=== PATIENT | female | born 1995 | race Caucasian/White ===

== ENCOUNTER 2017-11-22 18:30 | Outpatient (CLI) | payer MEDICAID, SELFPAY ==
[2017-11-22 18:52] VITALS: BMI 43.7
--- NOTE | 2017-11-22 19:12 | OB.TRI.NOTE ---
History of Present Illness Date of Service: 11/22/17 Was patient seen by the physician?: Yes Reason For Visit: 41 weeks Date of Service: 11/22/17 Final ROSALINDA: 11/15/17 Gestational age: 41 Weeks and 0 Days History of Present Illness: 22-year-old 1 para 0 female presents at 41 weeks today for nonstress test and MAUREEN. She was originally scheduled for induction today but due to acuity of the unit we have rescheduled her for tomorrow. she denies vaginal bleeding or leaking of fluid. She has had no regular contractions. She has had good movement. Home Medications Medication Instructions Recorded Vits [Prenatabs FA] 1 tablet PO DAILY 11/22/17 Allergies No Known Allergies Allergy (Verified 11/22/17 18:52) Physical Exam General: Alert, Cooperative, No apparent distress Abdomen: Soft, Non Tender, Non-Distended, Gravid, Appropriate for Gestational Age NST - FHR Rate Baby A Baseline: 150 Variability:: Moderate Accelerations:: 15 x 15 Decelerations:: None NST Reactive:: Yes FHR Category:: Category I Uterine Activity:: Quiet Impression/Plan 22-year-old 1 para 0 at 41 weeks gestation. Brief abdominal ultrasound done today. Confirms active vertex fetus. Normal amniotic fluid volume. Reactive nonstress test. Return tomorrow for Cytotec induction of labor or as needed.
== END 2017-11-22 20:32 | disposition home or self-care (01) ==
LOC: WPOUT 18:50 → WP 18:50
PROVIDERS: Visit Provider Obstetrics & Gynecology
DX: Z34.83 Encounter for supervision of other normal pregnancy, third trimester (principal)
CPT/HCPCS: 59025; 59050; 76815; 99218; G0378

== ENCOUNTER 2017-11-23 16:50 | Inpatient (IN) | payer MEDICAID, SELFPAY ==
[2017-11-23 17:28] VITALS: BMI 43.5
[2017-11-23] MEDS: Lactated Ringers 1,000 ML 50 ML IV (17:54)
[2017-11-23] MEDS: miSOPROStol 25 MCG TABLET VAGINAL (18:03)
[2017-11-23 18:20] LABS: Hematocrit 40.2 % (37-47); Mean Corp Hgb Conc 32.3 g/gl (32-36); Mean Corpuscular Hgb 27.3 pg (27.0-32.0); Mean Corpuscular Volume 84.5 fL (81-99); Mean Platelet Vol. 10.7 fl (6.2-12.0); Platelet Count 251 K/mm3 (150-450); RBC Distribution Width CV 14.7 % (11.6-14.6); RBC Distribution Width SD 45.6 fl (35.1-43.9); Red Blood Count 4.76 M/mm3 (4.2-5.4); White Blood Count 10.7 K/mm3 (4.4-11.0)
[2017-11-23 18:41] LABS: Scan Indicated on CBC? Y/N NO
--- NOTE | 2017-11-23 20:30 | PCM.HP.OB ---
History Date of Admission: 11/23/17 Final ROSALINDA: 11/15/17 Final ROSALINDA Source: US <20 weeks Gestational age: 41 Weeks and 1 Days History of this : 22yo @ 40.1 wks here for IOL due to Post Term . pt denies concerns today. Minimal contraction discomfort, no bleeding or leaking fluid. EDC is 11/15/17 Allergies No Known Allergies Allergy (Verified 11/22/17 18:52) Current Medications Acetaminophen (Tylenol) 325 - 650 mg PO Q4H PRN PRN PRN Reason: PAIN OR FEVER >100.4F Al Hydroxide/Mg Hydroxide (Mylanta Ii) 15 - 30 ml PO Q4H PRN PRN PRN Reason: INDIGESTION Citric Acid/Sodium Citrate (Bicitra) 30 ml PO UD PRN Lactated Ringer's () 1,000 mls @ 50 mls/hr IV .Q20H [facility] Last Admin: 11/23/17 17:54 Dose: 50 mls/hr Misoprostol (Cytotec) 25 mcg VAGINAL Q4H MARCUS Stop: 11/24/17 13:26 Last Admin: 11/23/17 18:03 Dose: 25 mcg Nalbuphine HCl (Nubain) 5 - 10 mg IV Q3H PRN PRN PRN Reason: PAIN (4-10/10) Ondansetron HCl (Zofran) 4 mg IV Q8H PRN PRN PRN Reason: NAUSEA Promethazine HCl (Phenergan (Ll)) 6.25 - 12.5 mg IV Q4H PRN PRN; Protocol PRN Reason: IF NAUSEA PERSISTS Sodium Chloride () 5 - 15 ml IV UD [facility] Smoking Status: Never smoker Alcohol: None Drug Use: none Number of Fetus(es): 1 Physical Exam General: Alert, Oriented x3 Abdomen: Soft, Non Tender, Gravid Estimated gestational size: Appropriate for gestational size Presentation: Cephalic Cervix Dilation (cm): 1 Station: -3 Effacement (%): 40 Assessment/Plan 22yo @ 41.1 wks, IOL for post term 1) Admit to L&D 2) Cytotec given 3) Mosley bulb to be placed transcervically 4) Will start pitocin 5) Montior fhr/toco 6) PNL reviewed A+, HIV neg, HEP B neg, Rub IMm, Syphilis neg, GBS negative
--- NOTE | 2017-11-23 20:35 | HP.PCM_ITS ---
History Date of Admission: 11/23/17 Final ROSALINDA: 11/15/17 Final ROSALINDA Source: US <20 weeks Gestational age: 41 Weeks and 1 Days History of this : 22yo @ 40.1 wks here for IOL due to Post Term . pt denies concerns today. Minimal contraction discomfort, no bleeding or leaking fluid. EDC is 11/15/17 Allergies No Known Allergies Allergy (Verified 11/22/17 18:52) Current Medications Acetaminophen (Tylenol) 325 - 650 mg PO Q4H PRN PRN PRN Reason: PAIN OR FEVER >100.4F Al Hydroxide/Mg Hydroxide (Mylanta Ii) 15 - 30 ml PO Q4H PRN PRN PRN Reason: INDIGESTION Citric Acid/Sodium Citrate (Bicitra) 30 ml PO UD PRN Lactated Ringer's () 1,000 mls @ 50 mls/hr IV .Q20H [facility] Last Admin: 11/23/17 17:54 Dose: 50 mls/hr Misoprostol (Cytotec) 25 mcg VAGINAL Q4H MARCUS Stop: 11/24/17 13:26 Last Admin: 11/23/17 18:03 Dose: 25 mcg Nalbuphine HCl (Nubain) 5 - 10 mg IV Q3H PRN PRN PRN Reason: PAIN (4-10/10) Ondansetron HCl (Zofran) 4 mg IV Q8H PRN PRN PRN Reason: NAUSEA Promethazine HCl (Phenergan (Ll)) 6.25 - 12.5 mg IV Q4H PRN PRN; Protocol PRN Reason: IF NAUSEA PERSISTS Sodium Chloride () 5 - 15 ml IV UD [facility] Smoking Status: Never smoker Alcohol: None Drug Use: none Number of Fetus(es): 1 Physical Exam General: Alert, Oriented x3 Abdomen: Soft, Non Tender, Gravid Estimated gestational size: Appropriate for gestational size Presentation: Cephalic Cervix Dilation (cm): 1 Station: -3 Effacement (%): 40 Assessment/Plan 22yo @ 41.1 wks, IOL for post term 1) Admit to L&D 2) Cytotec given 3) Mosley bulb to be placed transcervically 4) Will start pitocin 5) Montior fhr/toco 6) PNL reviewed A+, HIV neg, HEP B neg, Rub IMm, Syphilis neg, GBS negative
[2017-11-23] MEDS: 0.9% Normal Saline 100 ML IV.SOLN. INTRA-UTER (20:45)
[2017-11-23] MEDS: Oxytocin 30 units/NS 500 ml 30 UNITS/500 ML IV.SOLN IV (22:47)
[2017-11-23 23:00] LABS: Hematocrit 40.3 % (37-47); Hemoglobin 13.3 g/dl (12.0-15.0); Mean Corpuscular Hgb 27.8 pg (27.0-32.0); Mean Corpuscular Volume 84.3 fL (81-99); Mean Platelet Vol. 10.6 fl (6.2-12.0); Platelet Count 245 K/mm3 (150-450); RBC Distribution Width CV 14.6 % (11.6-14.6); RBC Distribution Width SD 45.4 fl (35.1-43.9); Red Blood Count 4.78 M/mm3 (4.2-5.4); White Blood Count 10.7 K/mm3 (4.4-11.0)
[2017-11-23 23:01] LABS: Scan Indicated on CBC? Y/N NO
[2017-11-23 23:09] LABS: Protein, Urine (Random) 19.6 mg/dL (<11.9); Protein:Creat Ratio 172 mg/g CRE (0-200)
[2017-11-23 23:13] LABS: AST(SGOT) 20 U/L (15-37); Alanine Aminotransfer ALT/SGPT 20 U/L (13-56); Creatinine, Serum 0.51 mg/dL (0.55-1.02); EST Glomerular Filtration Rate 162 mL/min (>60); Est Glom Filt Rate - Afr Amer 196 mL/min (>60); Estimated Creatinine Clearance 139.17 ml/min
[2017-11-24] VITALS (16 sets, daily range): BP systolic 109–142; BP diastolic 49–71; PULSE 94–113; RESP 14–20; TEMP 37.3–38.2; O2SAT 95–98
[2017-11-24] MEDS: Nalbuphine 10 MG/ML Ampul IV ×2 (00:17→03:54)
[2017-11-24 02:58] LABS: Prothrombin Time (Protime)PT. 13.6 SECONDS (11.7-14.9)
[2017-11-24 02:59] LABS: Partial Thromboplast Time 30.4 Seconds (24.1-36.2)
[2017-11-24] MEDS: Lactated Ringers 1,000 ML 50 ML IV ×3 (03:52→12:13)
--- NOTE | 2017-11-24 09:39 | PCM.PN.BLA ---
Progress Note S: Patient comfortable with epidural O: cvx - 5/70/-2 fhts 135 with mod variability, accels tocos Q2-4 min A&P: cont pitocin induction
[2017-11-24] MEDS: Ondansetron 4 MG/2 ML Vial IV (16:30)
[2017-11-24] MEDS: Sodium Citrate/Citric Acid 30 ML UDC PO (16:31)
--- NOTE | 2017-11-24 16:48 | PCM.OB.CSR ---
Delivery Final ROSALINDA: 11/15/17 Gestational age: 41 Weeks and 2 Days Indications: Patient was counseled on MOD extensively before induction of labor was started at 41&1. Patient has small pelvis, unfavorable cervix & head not engaged in pelvis. She elected to proceed with induction. She was on pitocin and ruptured for 12 hours (patient was thought to be ruptured prior to AROM) with no significant cervical change or descent. Patient then requested section & declined further induction of labor. Decision made to proceed with section as medically reasonable at this time Indications for : Failed Induction Description of Procedure: Patient taken to OR where epidural anesthesia was dosed. She was prepped and draped in normal sterile fashion in a dorsal lithotomy position with a leftward tilt. After ensuring adequacy of anesthesia the Pfannensteil skin incision was made and carried through to the underlying fascia with a bovie. The fascia was incised in the midline and carried laterally with the Vizcarra scissors. The rectus muscles were in the midline and the peritoneum was entered bluntly. The bladder flap was dissected down carefully with the Metzenbaum scissors and blunt dissection. The uterus was incised in a transverse fashion and then incision extended with cephalocaudad traction. The fetus was vertex and the head was brought to the incision in the flexed position. With good fundal pressure the head easily delivered. Gentle traction placed on head to allow delivery of anterior & posterior shoulders. No excess traction placed on head. The body delivered easily. The 3VC cord was clamped and cut after 1 minute delay and the handed off to the waiting RN. The placenta was delivered w/ gentle traction and fundal massage and the uterus was exteriorized and cleared of all clots and debris. The uterine incision was closed with 1 vicryl suture in a running locked fashion. The bovie was used to further obtain further hemostasis of the uterine incision. A second imbricating layer of monocryl was placed. The uterus was returned to the peritoneal cavity. The pelvis was irrigated & then cleared of all clots and debris. The uterine incision was reexamined and found to be hemostatic. Some angi was placed over the uterine incision due to the denuded areas. The parietal peritoneum was reapproximated with running 1 vicryl suture. The fascia was closed with looped PDS suture in a running standard fashion. The subcutaneous tissue was examined & any bleeding bovie cauterized. The subcutaneous tissue was reapproximated with 3-0 vicryl suture. The skin was closed in a subcuticular fashion by the DIRECTOR OF PHYSICAL EDUCATION with me present in the labor and delivery suite. I performed the remainder of the procedure w/ assistance. Amniotic Membrane Rupture Type: Spontaneous Amniotic Fluid Description: Clear Placenta Disposition: [facility] Drain: Mosley to straight drain Cord Vessel Description: 3 Vessels Infant Gender: Female (1 minute): 8 (5 minute): 9 Delayed cord clamping: Yes Pre-op Antibiotic Given: Ancef 2 grams IV x1 Complications: None
[2017-11-24] MEDS: Cefazolin 2 GM in 0.9% Normal Saline 100 ML IV (16:50)
[2017-11-24] MEDS: Oxytocin 30 units/NS 500 ml 30 UNITS/500 ML IV.SOLN 167 UNITS IV (17:11)
[2017-11-24] MEDS: Ketorolac 30 MG/ML Syringe IV (17:20)
[2017-11-24] MEDS: Lactated Ringers 1,000 ML 100 ML IV ×2 (18:15→23:14)
[2017-11-24] MEDS: HYDROmorphone HCL 0.5 MG/0.5 ML SYRINGE IV (18:53)
[2017-11-25] VITALS (15 sets, daily range): BP systolic 108–132; BP diastolic 46–65; PULSE 97–115; RESP 15–20; TEMP 36.8–37.3; O2SAT 94–99
[2017-11-25] MEDS: Ketorolac 30 MG/ML Syringe IV ×4 (03:43→23:05)
[2017-11-25 05:42] LABS: Hematocrit 30.9 % (37-47); Hemoglobin 10.1 g/dl (12.0-15.0); Mean Corp Hgb Conc 32.7 g/gl (32-36); Mean Corpuscular Volume 85.6 fL (81-99); Mean Platelet Vol. 10.6 fl (6.2-12.0); Platelet Count 194 K/mm3 (150-450); RBC Distribution Width CV 14.9 % (11.6-14.6); Red Blood Count 3.61 M/mm3 (4.2-5.4); Scan Indicated on CBC? Y/N NO; White Blood Count 12.6 K/mm3 (4.4-11.0)
[2017-11-25] MEDS: Acetaminophen 500 MG Tablet 1000 MG PO (08:14)
--- NOTE | 2017-11-25 09:42 | PCM.PN.OB ---
Subjective: Pain controlled - Physical Exam General: Alert, Oriented x3 Abdomen: Soft, Non Tender, Non-Distended - ff mid & below umb; incision - bandage c/d/i Extremities: No Calf Tenderness Psych/Mental Status: Normal Affect Vital Signs Temp Pulse Resp BP Pulse Ox 99.0 F 97 17 109/50 L 95 11/25/17 04:00 11/25/17 06:15 11/25/17 06:15 11/25/17 04:00 11/25/17 06:15 Oxygen Delivery Method Room Air Weight: 241 lb 13.553 oz Body Mass Index (BMI) 43.5 Intake and Output for Last 24 Hours 11/23/17 11/24/17 11/26/17 23:59 23:59 00:59 Intake Total 3939 / 3939 1000 / 1000 Output Total 400 / 400 250 / 250 Balance 3539 / 3539 750 / 750 Laboratory Tests Past 24 Hrs 11/25/17 05:10 WBC 12.6 H RBC 3.61 L Hgb 10.1 L Hct 30.9 L MCV 85.6 MCH 28.0 MCHC 32.7 RDW 14.9 H RDW Differential 45.0 H Plt Count 194 MPV 10.6 Assessment/Plan POD#1 Heme - HDS, CBC reviewed IF - AF, no signs infection - d/c aziza later today GI - ADAT
[2017-11-25] MEDS: Enoxaparin 40 MG/0.4 ML Syringe SC (10:18)
[2017-11-25] MEDS: Lactated Ringers 1,000 ML 100 ML IV (10:22)
[2017-11-25] MEDS: 0.9% Saline Lock 10 ML Syringe IV ×2 (16:35→23:06)
--- NOTE | 2017-11-25 17:15 | NURSING ---
Mosley cath removed after saline drained from balloon.
--- NOTE | 2017-11-25 19:44 | NURSING ---
Pt. has been agreeable all shift, smiling frequently, and interacting with staff appropriately. Pt. excited to get out of bed and move around today. Doing well with her - very engaged with feeding . When discussing care of and (i.e. pacifier use,) pt. very much wanting to work with with vs. giving pacifier.
[2017-11-25] MEDS: oxyCODONE 5 MG Tablet PO (23:05)
[2017-11-26] VITALS: PULSE 110; RESP 17; TEMP 37.2; O2SAT 95
--- NOTE | 2017-11-26 00:52 | NURSING ---
11/25/17- Received report for continuation of care. Previous RN (Georgina) stated due to patient's high score on depression screening patient should be on some type of suicide precautions. Patient denies any suicidal ideations to this nurse. Patient is alert, and oriented x3. Mood appears pleasant. Patient appropriate with care. Patient is receptive to questions, makes direct eye contact and is frequently smiling. Patient was referred to case management but unaware if order was given to place patient on suicide precautions. There is no note written from previous RN caring for patient. Will continue to monitor patient closely.
[2017-11-26 02:00] VITALS: BP 124/68; PULSE 105; RESP 17; TEMP 37; O2SAT 97
--- NOTE | 2017-11-26 02:04 | NURSING ---
Dr Quiroz updated for clarification. RN and Dr Quiroz both agree patient not suicidal at this time. Clarified Moni to see patient tommorow, she states crisis was notified per protocol and will see her tommorow.
[2017-11-26] MEDS: 0.9% Saline Lock 10 ML Syringe IV ×2 (05:37→13:42)
[2017-11-26] MEDS: Ketorolac 30 MG/ML Syringe IV ×2 (05:37→13:41)
[2017-11-26] MEDS: oxyCODONE 5 MG Tablet PO ×2 (05:37→21:49)
[2017-11-26] MEDS: Enoxaparin 40 MG/0.4 ML Syringe SC (05:38)
--- NOTE | 2017-11-26 08:49 | PCM.PN.OB ---
Subjective: pain well controlled, average lochia - Physical Exam General: Alert, Cooperative, No apparent distress Abdomen: Soft, Distended - mildly, Tender - appropriately Skin: Incision - -bandage clean, dry and intact Vital Signs Temp Pulse Resp BP Pulse Ox 98.6 F 105 H 17 124/68 H 97 11/26/17 02:00 11/26/17 02:00 11/26/17 02:00 11/26/17 02:00 11/26/17 02:00 Oxygen Delivery Method Room Air Weight: 109.7 kg Body Mass Index (BMI) 43.5 Intake and Output for Last 24 Hours 11/24/17 11/25/17 11/26/17 22:59 23:59 23:59 Intake Total Output Total 600 / 600 Balance -600 / -600 Assessment/Plan POD#2 edmarw barry working on maybe home later today if ok w/ peds
[2017-11-26 09:00] VITALS: BP 134/72; PULSE 112; RESP 16; TEMP 36.7; O2SAT 98
[2017-11-26] MEDS: Senna/Docusate Sodium 1 Tablet PO (09:10)
[2017-11-26 13:59] VITALS: BP 147/81; PULSE 74; RESP 20; TEMP 36.9; O2SAT 98
--- NOTE | 2017-11-26 15:30 | CASEMGMT ---
Social Work - Labor and Delivery Unit Social Work Assessment completed. Refer to documentation below for further details. Date of Referral: 11/25/2017 Time of Referral: 1956 Referred By: Dr. Jaskaran Quiroz Reason for Referral: maternal history of depression, social/family stress, PHQ9 score of 22 Date of Intervention: 11/26/2017 Time of Intervention: 1530 History obtained from: Medical record and mother of baby (MOB) Robin Gómez Household composition: MOB, reported father of baby (FOB) Camron Boyd, MOBs mother, and MOBs Sister Suzi (age 15, will be 16 in February). Suzi has an almost 1 year old child who lives in this home as well. MOB reports has lived in this home since July 2017. MOB plans to take Leif Boyd to this home. Patient's parent/guardian status: MOB and FOB have been together for 2 years now. MOB reports is the first child for both. MOB denies any safety concerns or abuse issues in relationship with FOB. Medical History: MOB is G1, P0 to 1 after delivering . MOB with transfer of care from [place] area around 33 weeks. MOB reports did have some care while living in [place], but the doctors practice was actually across the border into [place]. MOB admits to delay in care upon moving to [facility], due some family and housing issues. Infant was born via primary caesarian section at 41 weeks gestation. Infant weighed 8 pounds 7 ounces with Apgars of 8 and 9 at 1 and 5 minutes of life. Educational Status: MOB believes self to have completed through the 11th grade, but was home schooled so this is a best guess. MOB reports desire to obtain GED at some point. MOB reports ability to read and write. Financial Status: FOB works at [employer] fulltime. MOBs last employment was at a fast food restaurant, at the beginning of . Infant Supplies: MOB reports to have needed supplies including car seat, bassinet, crib, clothing, diapers, wipes, bottles and breast pump. Childcare/Caregiver(s): MOB plans to be primary caregiver to . Transportation: FOB drives, no reported issues with getting to appointments. Programs/Agencies Involved: MOB reports involvement with WIC and then with [facility] for medical. Children Services/Legal Issues: MOB denies any history of children services involvement. MOB had referenced some history of trauma at a young age, but is unsure if children services was involved at that time, as MOB was quite young. No reports of any legal issues. Behavioral Health Issues: MOB reports history of depression as a child and teenage, off of medication since the age of 15. MOB reports counseling started with a school counselor in elementary and then went to [facility] off and on until MOB was in the 7th grade. MOB reports belief that medication didnt work for MOB at that time. MOB with current symptoms of depression, rating a score of 22 on PHQ9 depression screen done this admission (See separate social work note dated this date for details of current depression and follow up to PHQ9). MOB reports history of depression with MOBs sister and then MOBs father a history of Bipolar Disorder. MBO denies any history of substance use or abuse, denies any alcohol use, and denies tobacco use. MOB had a negative drug screen on 09-27-17 while at a care visit. Family/Social Stressors: TATUM is a first time mother with history of depression and current symptoms of depression, with MOB with family history of mental health issues. Luz mother recently finished treatment for breast cancer and has now been diagnosed with brain cancer (just finishing radiation treatment for this). MOB struggles with being a support to MOB's mom while at the same time giving MOB's mother independence. MOB with stressors during this in the form of several moves, housing stability, with just getting settled into new home in July 2017. MOB reports the short time in [place], living with YAKELINBs family did not go well, and MOB was not used to these people and felt isolated from support system. Support Systems: MOB reports FOAvery is a strong support, as well as MOBs 15 year old sister Suzi, and then a friend named Eri. MOB reports supports will be there for practical and emotional support. MOB reports there are other family members around who are helping to watch out for Luz mother while MOB is in the hospital, so extended family support in this area. MOB reports because of extended family support, this is a reason that decision was made to move back to [facility] from [place]. Depression/Shaken Baby/Safe Sleeping: Educated MOB to signs and symptoms of depression and anxiety, as well as current risk factors (history of depression, depression, current depression, social stressors, and family history of mental health). MOB receptive to education, as evidenced by engagement in conversation and willingness to referrals for aftercare. Educated MOB to shaken baby and safe sleeping. ASSESSMENT: Per nursing reports MOB has been attentive to infant, upbeat in presentation/mood, and overall no concerns with mother/infant bonding. MOB held baby throughout social work visit today, looked at and gazed at baby. MOB appeared relaxed holding baby, and calm motor activity throughout visit. MOB smiled at appropriate times, affect congruent to content. MOB teary eyed a few times, when talking about mood and depression during . MOB reports desire to gain more support in the period. MOB held good eye contact, seemed interested in discussion on coping and management of emotions. MOB denies current thoughts, plans, intent for suicide and states since delivery to feel the happiest has felt in months. MOB listened to social work education on depression, that moods can fluctuate, and while MOB is happy at this time it is important to focus on self-care and care home management of mental health. MOB reports to love the baby, to feel a johns, and desires to parent the baby. MOB signed a release of information to [facility] for continuity of care and referral related to current mental health symptoms. 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 Will work on mental health follow up for MOB. -JASPAL Wells, MEHRDAD
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
--- NOTE | 2017-11-26 19:26 | NURSING ---
Patient seen by Dayana classification case manager , not a suicide risk at this time . Precautions dc'd
[2017-11-26 20:15] VITALS: BP 150/80; PULSE 115; RESP 16; TEMP 37.2; O2SAT 98
[2017-11-26] MEDS: Ibuprofen 600 MG Tablet PO (20:17)
[2017-11-26 23:35] VITALS: BP 149/86; PULSE 96; RESP 16; TEMP 36.4; O2SAT 97
[2017-11-27] MEDS: Acetaminophen 500 MG Tablet 1000 MG PO (01:46)
[2017-11-27 02:07] VITALS: BP 136/66; PULSE 92; RESP 16; TEMP 36.5; O2SAT 96
[2017-11-27] MEDS: oxyCODONE 5 MG Tablet PO ×2 (03:27→10:01)
[2017-11-27] MEDS: Ibuprofen 600 MG Tablet PO ×2 (05:27→14:24)
[2017-11-27] MEDS: Enoxaparin 40 MG/0.4 ML Syringe SC (05:27)
--- NOTE | 2017-11-27 06:05 | PCM.PN.OB ---
Subjective: pain well controlled, average lochia, + Bm. Denies RAMAN or visual changes. - Physical Exam General: Alert, Cooperative, No apparent distress Abdomen: Soft, Non-Distended, Tender - appropriately Extremities: Edema - 1+, - - 3+DTrs, no clonus Skin: Incision - bandage clean,d ry and intact Vital Signs Temp Pulse Resp BP Pulse Ox 97.7 F L 92 16 136/66 H 96 11/27/17 02:07 11/27/17 02:07 11/27/17 02:07 11/27/17 02:07 11/27/17 02:07 Oxygen Delivery Method Room Air Weight: 109.7 kg Body Mass Index (BMI) 43.5 Intake and Output for Last 24 Hours 11/25/17 11/26/17 11/27/17 23:59 23:59 23:59 Intake Total Output Total 600 / 600 Balance -600 / -600 Assessment/Plan POD#3 doing well overall likely d/c home today waiting on crisis team evaluation bp mildly elevated last night, trending down, will see what trend is today but no evidence of PP preeclampsia at this time
--- NOTE | 2017-11-27 06:09 | DCINST_ITS ---
Discharge Diet: No Restrictions Discharge Activity: Return to Normal Activity, May Not Drive - for 2 weeks, May not drive while taking narcotic pain medications., May Shower, May Take a Tub Bath - in 7 days. May resume sexual activity in: 4-6 weeks Lifting Restrictions: 20 pounds Additional Activity Instructions:: Nothing in the vagina for 4-6 weeks. You may return to work/school in 6 weeks. Call your doctor if your incision/area has: Continuous Slow Oozing, Sudden Increased Bleeding, Increased Pain/ Swelling, Increased Redness, Foul Smelling Discharge Call your doctor if you observe: Fever of 101 or Higher, Using more than one pad per hour - for 2 hours Suture Line Care: Avoid Pulling/Pushing, Avoid Pinching/Bending Cleanse incision/area with: Keep Dressing Clean & Dry Additional Instructions: If you experience any of the following, contact your healthcare provider. * Bleeding that soaks a pad every hour for 2 hours * Fever 100.4 or higher * Unrelieved incision or abdominal pain * Swelling, redness, discharge or bleeding from your incision or episiotomy site * Your incision begins to separate * Problems urinating (including inability to urinate or burning while urinating) . * Visual changes * Severe headache * Flu-like symptoms * Pain or redness in one of both of your breasts * Pain, warmth, tenderness or swelling in your legs, especially the calf area * Frequent nausea and vomiting * Symptoms of depression or anxiety If you experience any of the following, call 911 or go to the nearest Emergency Room. * Chest pain * Problems breathing * Seizure activity * Partial or complete paralysis of a body part, slurred speech, weakness or drooping of the face, or a sudden inability to walk or hold your balance Allergies/Adverse Reactions: Allergies No Known Allergies Allergy (Verified 11/22/17 18:52) Medications to take at Discharge Vits [Prenatabs FA] 1 tablet PO DAILY 11/22/17 Ibuprofen [Motrin] 600 mg PO Q6H PRN #60 tab 11/27/17 Oxycodone HCl/Acetaminophen [Percocet 5/325] 1 - 2 tablet PO Q6H PRN PRN 7 Days #28 tablet 11/27/17 The following prescriptions were given: Oxycodone HCl/Acetaminophen [Percocet 5/325] 1 - 2 tablet PO Q6H PRN PRN 7 Days #28 tablet PRN Reason: Pain Ibuprofen [Motrin] 600 mg PO Q6H PRN #60 tab PRN Reason: Pain Follow-Up: Call to make an appointment with your doctor for an incision check in 1-2 weeks. You will also need a 6 week post- follow up appointment. Please Follow Up With: Jaskaran Quiroz - Call to make an appointment for an incision check in 1-2 [phone] When: You will need a post check in 6 weeks. Primary Care Physician: Care Physician,No Primary [Primary Care Provider] -
--- NOTE | 2017-11-27 06:15 | DS.PCM_ITS ---
Discharge Date and Diagnosis Date of Admission: 11/23/17 Date of Discharge: 11/27/17 Hospital Course and Treatment Operations: - - Primary low transverse section Via Pfannenstiel skin incision Procedures: None Summary of Care Provided: The patient is a 22 year old female 1 para 0 admitted at 41-1/7 weeks gestation section of labor. She remained at 5 cm for 12 hours despite artificial rupture membranes and Pitocin. At that point she declined further induction of labor and requested a section. This was performed without difficulty. She had mild acute blood loss anemia appropriate for blood loss during the surgery. By postoperative day #3 she was ambulating, urinating , and tolerating regular diet without difficulty. The crisis team was going to evaluate her before discharge due to some concerns about her mood. He was breast-feeding and doing well. She had some mildly elevated blood pressures, however they were trending down and she had no evidence of preeclampsia. Pressures continue to remain normal or only minimally elevated between now and discharge will just have her follow-up for a blood pressure check in approximately 3-7 days. She was given routine instructions and prescriptions. [] Discharge Diet: No Restrictions Discharge Activity: Return to Normal Activity, May Not Drive - for 2 weeks, May not drive while taking narcotic pain medications., May Shower, May Take a Tub Bath - in 7 days. May resume sexual activity in: 4-6 weeks Additional Activity Instructions:: Nothing in the vagina for 4-6 weeks. You may return to work/school in 6 weeks. Call your doctor if your incision/area has: Continuous Slow Oozing, Sudden Increased Bleeding, Increased Pain/ Swelling, Increased Redness, Foul Smelling Discharge Call your doctor if you observe: Fever of 101 or Higher, Using more than one pad per hour - for 2 hours Suture Line Care: Avoid Pulling/Pushing, Avoid Pinching/Bending Cleanse incision/area with: Keep Dressing Clean & Dry Home Medications: Medications to take at Discharge Vits [Prenatabs FA] 1 tablet PO DAILY 11/22/17 Ibuprofen [Motrin] 600 mg PO Q6H PRN #60 tab 11/27/17 Oxycodone HCl/Acetaminophen [Percocet 5/325] 1 - 2 tablet PO Q6H PRN PRN 7 Days #28 tablet 11/27/17 Following Prescrptions Were Given to Patient: Oxycodone HCl/Acetaminophen [Percocet 5/325] 1 - 2 tablet PO Q6H PRN PRN 7 Days #28 tablet PRN Reason: Pain Ibuprofen [Motrin] 600 mg PO Q6H PRN #60 tab PRN Reason: Pain Primary Care Physician: Care Physician,No Primary [Primary Care Provider] - Please Follow Up With: Jaskaran Quiroz - Call to make an appointment for an incision check in 1-2 [phone] When: You will need a post check in 6 weeks. Meaningful Use Info Meaningful Use Diagnoses (Choose all that apply): None applicable
[2017-11-27 09:40] VITALS: BP 111/63; PULSE 86; RESP 16; TEMP 36.8; O2SAT 97
[2017-11-27] MEDS: Senna/Docusate Sodium 1 Tablet PO (10:01)
--- NOTE | 2017-11-27 13:20 | CASEMGMT ---
Social Work - Labor and Delivery Summary Gathered up resources for mother of baby (MOB) as well as spoke with nursing. No new identified concerns regarding MOB, interactions with staff or with baby. Met with MOB, MOB's sister Suzi, and father of baby (FOB) Camron Boyd. FOB holding baby on chest during social work visit. MOB sitting in bed and had indicated previously to this creative writer that okay to talk and review information with family present in room. Provided MOB with resources lists, handouts on local programs, educational information on depression including specific supports for such. Handouts on coping skills, calm breathing, tips for sleeping also given. Provided MOB with some resources in relation to MOB's mother who has cancer, to keep in mind if future support is needed. Verbally reviewed resources and lists with MOB. MOB denies to feel overwhelmed with information received. Arranged mental health follow up for MOB who reports ability and intention to go to follow made. MOB denies thoughts of suicide, reports to feel safe, and to feel ready to return home. MOB verbally contracts to talk to support system should any thoughts of self harm arise in the future. MOB sitting up in chair. Alert and oriented, bright affect, normal eye contact, relaxed motor activity, and attentive to social work conversation. MOB at one point told FOB to have some patience (about food order received and getting the wrong drink), as MOB is focusing on information social insurance administrator is providing. MOB expressed thanks for information offered and verbally agreed to go to mental health follow up arranged, as well as reported that can get a ride to the appointments. MOB verbally agrees to [facility] referral. Interventions. Crisis Appointment at [facility] (to check in on MOB before intake, and to see how doing at home with baby) set for Sunday11-30-17 at 1000 with Yesenia Maddox (for continuity of care a message left for Yesenia of MOB's current issues) Intake Assessment at [facility] set for Sunday12-04-17 at 1330 with Fredrick Valenzuela Offered referral to [facility] Behavioral Health Program, which MOB declined but may consider for the future Information on local GED/adult education offerings Information on benefits through insurance for transportation and / care incentives [facility] patient Navigator and Palliative Care program (related to MOB's mother's cancer diagnoses) General resources lists for [facility] Handouts on safe sleeping, shaken baby/tips to soothe baby, MOMS support group, and [facility] Depression packet Handouts on copings skills, calm breathing techniques, and tips for better sleeping PLAN: MOB and to home today with support from family who lives with MOB in the home. Mental Health follow up arranged for MOB this week and for next. MOB verbally contracts for safety, denies thoughts/plans/intent for suicide. -WILLY Wells, NURSING INFORMATION SYSTEMS COORDINATOR
--- NOTE | 2017-11-27 13:42 | CASEMGMT ---
Social Work - Labor and Delivery [facility] referral completed via [facility]'s secure online web based system. -WILLY Wells, GAS STATION CASHIER
[2017-11-27 14:24] VITALS: BP 137/87; PULSE 92; RESP 16; TEMP 36.6
--- NOTE | 2017-12-04 16:10 | CASEMGMT ---
Social Work Labor and Delivery Unit As a follow up to social work intervention with mother of baby (MOB) and infant Leif Boyd, done during delivery admission this mortgage or loan underwriter confirmed whether MOB followed up with mental health appointments this mortgage or loan underwriter arranged. MOB had a high PHQ9 score, showing significant depression as well as had indicated significant social stressors. As the referrer, this mortgage or loan underwriter able to ascertain that MOB did not go to either the crisis appointment on 11-30-17 nor to intake appointment today, at 1330. Called [facility] ([facility]) and spoke with Lety in the intake department. Referral due to multiple risk factors present for this family, which could lead to safety issues for baby: concern about MOB's high depression scale postnatally, which included having some thoughts of being better off , though MOB denied active plans or intent during , nor any thoughts since delivery; MOB reported reasons to live to this mortgage or loan underwriter. This mortgage or loan underwriter with concern as MOB admits that motivation is a factor to MOB's depression, which often leads to negative thinking and thoughts of being better off . MOB with social/family stressors including MOB's mother with significant health concerns Housing situation - several moves during this , and now living with MOB's mother, MOB's 15 year old sister who has an almost one year old in the home. MOB with lack of any recent mental health treatment or support since middle school. Late care Concern as to how if left untreated depression could impact MOB's care of self and of baby, especially when MOB identifies lack of motivation as a significant factor to MOB's depression. Concern that MOB identified that would go to mental health follow up appointments made and there was no follow through on MOB's part. Let Lety know that MOB did appear to handle baby well, identified positive thoughts regarding baby, and accepted a [facility] referral, which was sent by this mortgage or loan underwriter. -WILLY Wells, ACCESS SPECIALIST
== END 2017-11-27 15:00 | disposition home or self-care (01) | DRG 371 ==
PROVIDERS: Obstetrics & Gynecology; Admitting Provider Obstetrics & Gynecology; Visit Provider Obstetrics & Gynecology
DX: O61.0 Failed medical induction of labor (principal); O32.4XX0 Maternal care for high head at term, not applicable or unspecified; O48.0 Post-term pregnancy; Z37.0 Single live birth; Z3A.41 41 weeks gestation of pregnancy; Z34.83 Encounter for supervision of other normal pregnancy, third trimester
CPT/HCPCS: 59025; 59050; 76815; 82565; 82570; 84156; 84450; 84460; 84550; 85027; 85610; 85730; 86850; 86900; 99218; J7120; A4216; G0378; J2405

== ENCOUNTER 2019-05-09 05:11 | Inpatient (IN) | payer MEDICAID, SELFPAY ==
[2019-05-09] VITALS (19 sets, daily range): BP systolic 101–133; BP diastolic 48–82; PULSE 86–110; RESP 16–18; TEMP 36.2–36.6; O2SAT 94–100; BMI 50.5
[2019-05-09] MEDS: Lactated Ringers 1,000 ML 999 ML IV (05:17)
[2019-05-09 05:46] LABS: Absolute Lymphocyte Count 2.58 X10^3/uL (0.83-4.51); Absolute Neutrophil Count 7.4 X10^3/uL (2.0-7.7); Basophil# 0.03 X10^3/uL; Basophil% 0.3 % (0-1); Eosinophil# 0.09 X10^3/uL; Eosinophils% 0.8 % (0-5); Hemoglobin 11.7 g/dL (12.0-15.0); Lymphocyte # 2.58 X10^3/ul (4.0); Lymphocyte % 23.3 % (19-41); Mean Corp Hgb Conc 32.5 g/dL (32-36); Mean Corpuscular Hgb 27.1 pg (27.0-32.0); Mean Corpuscular Volume 83.3 fL (81-99); Mean Platelet Vol. 11.2 fl (6.2-12.0); Monocyte# 0.87 X10^3/uL; Monocyte% 7.8 % (0-10); NRBC Flagged by Analyzer 0 % (0-5); Neutrophil # 7.37 X10^3/uL (2.7-7.7); Neutrophil % 66.4 % (47-70); Platelet Count 241 K/mm3 (150-450); RBC Distribution Width CV 15.9 % (11.6-14.6); RBC Distribution Width SD 48.2 fl (35.1-43.9); Red Blood Count 4.32 M/mm3 (4.2-5.4); White Blood Count 11.1 K/mm3 (4.4-11.0)
[2019-05-09 05:49] LABS: Prothrombin Time (Protime)PT. 13.1 SECONDS (11.7-14.9)
[2019-05-09 05:50] LABS: Partial Thromboplast Time 30.3 Seconds (24.1-36.2)
[2019-05-09 06:02] LABS: AST(SGOT) 14 U/L (15-37); Alanine Aminotransfer ALT/SGPT 22 U/L (13-56); Creatinine, Serum 0.57 mg/dL (0.55-1.02); EST Glomerular Filtration Rate 142 mL/min (>60); Est Glom Filt Rate - Afr Amer 172 mL/min (>60); Estimated Creatinine Clearance 123.48 ml/min; Uric Acid 4.5 mg/dL (2.6-6.0)
[2019-05-09] MEDS: Lactated Ringers 1,000 ML 150 ML IV (06:21)
[2019-05-09] MEDS: Sodium Citrate/Citric Acid 30 ML UDC PO (07:09)
--- NOTE | 2019-05-09 08:53 | OP.PCM_ITS ---
Report of Operation Date of Procedure: 05/09/19 Surgery/Procedure Performed:: Low transverse section and bilateral tubal ligation with filshie clips Description of Surgical Findings:: Normal maternal uterus & adnexa. Significant engorged vasculature near adnexa. coil finisher: Tara Partida Type of Anesthesia:: Spinal Delivery Classification: Scheduled Final ROSALINDA: 05/16/19 Gestational age: 39 Weeks and 0 Days Indications for : Repeat Elective , Desires elective sterilization Description of Procedure: Patient taken to OR where spinal anesthesia was placed. She was prepped and draped in normal sterile fashion in a dorsal supine position with a leftward tilt. After ensuring adequacy of anesthesia the Pfannensteil skin incision was made and carried through to the underlying fascia w/ a bovie. The fascia was incised in the midline and carried laterally with the Vizcarra scissors. The rectus muscles were in the midline and the peritoneum was entered bluntly. The bladder flap was dissected down with the Metzenbaum scissors and blunt d issection. The uterine incision was made with the scalpel and extended laterally w/ blunt dissection. The fetus was vertex and the head was brought to the incision in the flexed position. With good fundal pressure the head delivered The head was gently guided to allow delivery of anterior & posterior shoulders. No excess traction placed on head. Body delivered easily. The cord was clamped and cut after 1 minute delay and the infant handed off to waiting RN. The placenta was delivered w/ gentle traction and fundal massage and the uterus was exteriorized and cleared of all clots and debris. The uterine incision was closed with 1 vicryl suture in a running locked fashion. A second layer monocryl was used to imbricate the first layer and obtain hemostasis. The uterus was returned to the peritoneal cavity which was cleared of all clots and debris. Bilateral fallopian tubes had large veins running alongside them. The right fallopian tube was grasped & ligated with a Filshie clip. Process repeated on the left side & again hemostasis confirmed. Pelvis was irrigated. The uterine incision was reexamined and found to be hemostatic. Some surgicel was placed over the uterine incision & bladder flap due to the denuded areas. Tubal ligation sites were examined & again confirmed to be hemostatic & filshie clips intact. The parietal peritoneum was reapproximated with running 1 vicryl figure suture. The fascia was closed with looped PDS suture in a running standard fashion. The subcutaneous tissue was examined, any bleeding bovie cauterized. The subcutaneous tissue was reapproximated with 3-0 vicryl suture. The skin was closed in a subcuticular fashion by the BUSINESS OPERATIONS COORDINATOR with me present in the labor and delivery suite. I performed the remainder of the procedure w/ assistance. Amniotic Membrane Rupture Type: Artificial Amniotic Fluid Description: Clear Placenta Disposition: [facility] Drain: Mosley to straight drain Fluids Replaced: 1500ml Cord Entanglement: None Cord Vessel Description: 3 Vessels Esitmated Blood Loss (ml): 800ml Gender: Female - Jennie (1 minute): 9 (5 minute): 10 Delayed cord clamping: Yes Pre-op Antibiotic Given: - - Ancef 3 grams IV x1 Pt instructed on risks of surgery: Bleeding, Anesthesia Risks, Infection, Need for Future C-Sections, Permanency, Failure Rate of 1 to 2%, Injury to surrounding structure(s) including bowel and bladder, Availability of other non- permanent control options
[2019-05-09] MEDS: Oxytocin 30 units/NS 500 ml 30 UNITS/500 ML IV.SOLN 167 UNITS IV (09:00)
[2019-05-09] MEDS: Lactated Ringers 1,000 ML 100 ML IV ×2 (09:00→12:19)
[2019-05-09] MEDS: Ondansetron ODT 4 MG Tablet PO (10:06)
[2019-05-09] MEDS: proCHLORPERazine 10 MG/2 ML Vial IV (10:43)
[2019-05-09] MEDS: Ketorolac 30 MG/ML Syringe IV ×2 (12:19→18:42)
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
--- NOTE | 2019-05-09 19:45 | CASEMGMT ---
SOCIAL WORK RECEIVED REFERRAL MOB TRIGGERED FOR CRISIS CONSULT D/T SCORE OF 22 ON PHQ9. THIS WORKER ASSESSED MOB AND COMPLETED [place] SUICIDE RISK ASSESSMENT. MOB DOES NOT REQUIRE SITTER PROTOCOL MOB DENIES SUICIDAL IDEATION, PLAN OR INTENT. MOB WITH NO PREVIOUS HX OF SUICIDE ATTEMPT. MOB INFORMED ROUTE SALES DELIVERY DRIVER WILL BE FOLLOWING UP THROUGHOUT HOSPITALIZATION. MOB IN AGREEMENT WITH PLAN. MOB WAS PROVIDED RESOURCES AND DISCUSSED OPTIONS FOR COUNSELING. SW TO FOLLOW FOR NEEDS. NURSING UPDATED. ELIESER FAUSTIN, DISTRICT RECRUITER, FRONT OFFICE ASSISTANT.
--- NOTE | 2019-05-09 20:13 | NURSING ---
PHQ9 assessment completed by patient and handed to Nurse at 18:40. Worksheet questionnaire answers documented in computer and a score of 22 was confirmed. Charge nurse notified immediately. Charge instructed this nurse to call Nursing mammography supervisor for steps on how to proceed. Per Nursing Wire Communications Engineer, call Gloria our in house National Coverage Specialist here until 22:00. Gloria called immediately after talking to the mammography supervisor. Gloria arrived on floor at 19:10to complete a [place] Suicide screening to determine if this patient needs 1:1 care. Gloria advised Nurse that crisis center does not need called at this time since she is here to evaluate the patient. Shift change report provided to Montserrat Guzman RN while SW was still on the floor.
[2019-05-09] MEDS: 0.9% Saline Lock 10 ML Syringe 5 ML IV (22:05)
[2019-05-10] VITALS (8 sets, daily range): BP systolic 100–124; BP diastolic 55–82; PULSE 80–105; RESP 15–18; TEMP 36.4–37; O2SAT 96–99
[2019-05-10] MEDS: 0.9% Saline Lock 10 ML Syringe 5 ML IV ×3 (00:18→11:52)
[2019-05-10] MEDS: Ketorolac 30 MG/ML Syringe IV ×2 (00:18→05:25)
[2019-05-10] MEDS: DiphenhydrAMINE 25 MG Capsule PO (03:38)
[2019-05-10 05:40] LABS: Hematocrit 31.9 % (37-47); Hemoglobin 10.2 g/dL (12.0-15.0); Mean Corpuscular Hgb 26.6 pg (27.0-32.0); Mean Corpuscular Volume 83.3 fL (81-99); Mean Platelet Vol. 10.8 fl (6.2-12.0); Platelet Count 166 K/mm3 (150-450); RBC Distribution Width CV 16.2 % (11.6-14.6); RBC Distribution Width SD 49.3 fl (35.1-43.9); Red Blood Count 3.83 M/mm3 (4.2-5.4); White Blood Count 9.9 K/mm3 (4.4-11.0)
[2019-05-10] MEDS: Acetaminophen 500 MG Tablet 1000 MG PO ×2 (08:04→17:33)
--- NOTE | 2019-05-10 11:27 | PCM.PN.OB ---
Subjective: Doing well per patient and nursing staff. Ambulating and taking PO without difficulty. Mosley catheter out, voiding. Passing flatus. Denies any headache, visual changes, chest pain, increased vaginal bleeding or leg pain. Pain controlled with Toradol. - Physical Exam General: Alert, Oriented x3, Cooperative HEENT: Atraumatic, Normocephalic Neck: Trachea Midline Lungs: Clear to auscultation, Normal air movement, No rhonchi, No wheeze Cardiovascular: Regular rate, Regular Rhythm, No murmurs Abdomen: Bowel Sounds Present, Soft, - - Fundus firm below U. Dressing dry and intact Psych/Mental Status: Normal Affect, Appropriate Vital Signs Temp Pulse Resp BP Pulse Ox 97.5 F L 85 16 117/61 96 05/10/19 07:45 05/10/19 07:45 05/10/19 07:45 05/10/19 07:45 05/10/19 07:45 Oxygen Delivery Method Room Air Weight: 276 lb 6.4 oz Body Mass Index (BMI) 50.5 Intake and Output for Last 24 Hours 05/08/19 05/09/19 05/10/19 23:59 23:59 23:59 Intake Total 7864.67 / 7864.67 400 / 400 Output Total 2350 / 2350 700 / 700 Balance 5514.67 / 5514.67 -300 / -300 Laboratory Tests Past 24 Hrs 05/10/19 05:33 WBC 9.9 RBC 3.83 L Hgb 10.2 L Hct 31.9 L MCV 83.3 MCH 26.6 L MCHC 32.0 RDW Std Deviation 49.3 H RDW Coeff of [place] 16.2 H Plt Count 166 MPV 10.8 Medical Necessity - Tobacco Use Smoking Status: Never smoker Assessment/Plan A: POD #1 LTCS P: 1) Routine care 2) Pain controlled 3) Hgb stable
[2019-05-10] MEDS: Senna/Docusate Sodium 1 Tablet PO (11:51)
[2019-05-10] MEDS: Ibuprofen 600 MG Tablet PO ×2 (12:10→18:44)
--- NOTE | 2019-05-10 13:10 | CASEMGMT ---
Addendum entered by Fiordaliza Mclaughlin 05/10/19 19:31: Nursing staff reporting that MOB has been doing well with infant. Nursing denies any concerns with MOB/infant interaction. Original Note: Social Work Following up with Mother of baby (MOB). MOB stating to have not had a chance to look over counseling services. This social worker assistant encouraging MOB to look further into counseling services to be a support for MOB. Father of baby (FOB) present during interaction and when this social worker assistant inquired if FOB could assist with , FOB shrugged shoulders and made no verbal confirmation. MOB smiling towards this social worker assistant communicating that MOB's sister is a support. MOB stating to not be concerned about returning to home with current stressors and to have needed support. This social worker assistant encouraging MOB to care for self in order to care for family/children. MOB voicing understanding and thanking this socia worker for stopping in to see MOB. MOB identifying no needs. MOB again confirming to plan to look over counseling services and options for support that were provided to patient yesterday by social work. Support provided. No further referrals indicated at this time. Reggie CRONIN, JASPAL
--- NOTE | 2019-05-10 17:02 | HP.PCM_ITS ---
History Date of Admission: 05/09/19 Final ROSALINDA: 05/16/19 Final ROSALINDA Source: US <20 weeks Gestational age: 39 Weeks History of this : This is a 23 year-old, G [], P [], at 39 weeks gestational age. Allergies insect venom Allergy (Verified 05/09/19 05:16) Hives Home Medications: Home Medications Vits [Prenatabs FA] 1 tablet PO DAILY 11/22/17 Smoking Status: Never smoker History Past Pregnancies: Past Pregnancies Delivery Date Name GA/Weeks Outcome Route Weight Gender Labor Length Anesthesia Delivery Location Provider FOB Physical Exam Vitals: Vital Signs Temp Pulse Resp BP Pulse Ox 98.6 F 105 H 16 124/82 H 99 05/10/19 14:20 05/10/19 14:20 05/10/19 14:20 05/10/19 14:20 05/10/19 14:20 Assessment/Plan This is a 23 year-old, G [], P [], at 39 weeks gestational age for repeat c- section Please see [facility] H&P. No updates.
[2019-05-10] MEDS: oxyCODONE 5 MG Tablet PO (17:34)
[2019-05-11 02:32] VITALS: BP 120/55; PULSE 100; RESP 18; TEMP 36.6
[2019-05-11] MEDS: oxyCODONE 5 MG Tablet PO ×2 (02:42→10:57)
[2019-05-11] MEDS: Ibuprofen 600 MG Tablet PO ×2 (08:31→14:45)
[2019-05-11 08:33] VITALS: BP 127/60; PULSE 93; RESP 16; TEMP 37; O2SAT 96
--- NOTE | 2019-05-11 10:05 | PCM.PN.OB ---
Subjective: Doing well per patient and nursing staff. Ambulating and taking PO without difficulty. Voiding and passing flatus. Denies headache, visual changes, chest pain, shortness of breath, leg pain, or increased vaginal bleeding. . Emotionally feels well, denies depression or anxiety. Planning D/C home today. - Physical Exam General: Alert, Oriented x3, Cooperative HEENT: Atraumatic, Normocephalic Neck: Trachea Midline Lungs: Clear to auscultation, Normal air movement, No rhonchi, No wheeze Cardiovascular: Regular rate, Regular Rhythm, No murmurs Abdomen: Bowel Sounds Present, - - Fundus below U. Dressing dry and intact. Extremities: No edema - Gwendolyn's negative Psych/Mental Status: Normal Affect, Appropriate Vital Signs Temp Pulse Resp BP Pulse Ox 98.6 F 93 16 127/60 H 96 05/11/19 08:33 05/11/19 08:33 05/11/19 08:33 05/11/19 08:33 05/11/19 08:33 Oxygen Delivery Method Room Air Weight: 276 lb 6.4 oz Body Mass Index (BMI) 50.5 Intake and Output for Last 24 Hours 05/09/19 05/10/19 05/11/19 23:59 23:59 23:59 Intake Total 7864.67 / 7864.67 400 / 400 Output Total 2350 / 2350 1775 / 1775 Balance 5514.67 / 5514.67 -1375 / -1375 Medical Necessity - Tobacco Use Smoking Status: Never smoker Assessment/Plan A:POD X2 Repeat LTCS P: 1) discharge and instructions given 2) Follow up for incision check in 1-2 weeks and PP visit in 6 weeks 3) H&H stable. 4) Percocet for pain 5) Discharge home
--- NOTE | 2019-05-11 10:18 | DCINST_ITS ---
Discharge Diet: No Restrictions Discharge Activity: Return to Normal Activity, May not drive while taking narcotic pain medications., May Shower May resume sexual activity in: 4-6 weeks Weight Bearing Status: Full weight bearing Lifting Restrictions: 20 pounds Additional Activity Instructions:: Nothing in the vagina for 4-6 weeks. You may return to work/school in 6 weeks. Call your doctor if your incision/area has: Continuous Slow Oozing, Sudden Increased Bleeding, Increased Pain/ Swelling, Increased Redness, Foul Smelling Discharge Call your doctor if you observe: Fever of 101 or Higher, Inability to urinate, Inability to have a bowel movement, Using more than one pad per hour, Shortness of breath, Chest pain, Calf discomfort, Uncontrolled pain Suture Line Care: Avoid Pulling/Pushing, Avoid Pinching/Bending Additional Instructions: If you experience any of the following, contact your healthcare provider. * Bleeding that soaks a pad every hour for 2 hours * Fever 100.4 or higher * Unrelieved incision or abdominal pain * Swelling, redness, discharge or bleeding from your incision or episiotomy site * Your incision begins to separate * Problems urinating (including inability to urinate or burning while urinating). * Visual changes * Severe headache * Flu-like symptoms * Pain or redness in one of both of your breasts * Pain, warmth, tenderness or swelling in your legs, especially the calf area * Frequent nausea and vomiting * Symptoms of depression or anxiety If you experience any of the following, call 911 or go to the nearest Emergency Room. * Chest pain * Problems breathing * Seizure activity * Partial or complete paralysis of a body part, slurred speech, weakness or drooping of the face, or a sudden inability to walk or hold your balance Allergies/Adverse Reactions: Allergies insect venom Allergy (Verified 05/09/19 05:16) Hives Medications to take at Discharge Vits [Prenatabs FA ] 1 tablet PO DAILY 11/22/17 Ibuprofen [Motrin] 600 mg PO Q6H PRN PRN tab 05/11/19 Oxycodone HCl/Acetaminophen [Percocet 5/325] 1 - 2 tab PO Q4H PRN PRN 7 Days #20 tab 05/11/19 The following prescriptions were given: Oxycodone HCl/Acetaminophen [Percocet 5/325] 1 - 2 tab PO Q4H PRN PRN 7 Days #20 tab PRN Reason: Pain Prescription Printed Follow-Up: Call to make an appointment with your doctor for an incision check in 1-2 weeks. You will also need a 6 week post- follow up appointment. Test results from this visit will be discussed in further detail at your follow- up appointment, if applicable. Please Follow Up With: Jaskaran Quiroz Primary Care Physician: Care Physician,No Primary [Primary Care Provider] -
--- NOTE | 2019-05-11 10:20 | PCM.DC.SUM ---
Discharge Date and Diagnosis Date of Admission: 05/09/19 Date of Discharge: 05/11/19 - Primary Discharge Diagnosis repeat section Hospital Course and Treatment Operations: - - Primary low transverse section Via Pfannenstiel skin incision Summary of Care Provided: The patient is a 23 year old F [ presents for repeat LTCS. Uncomplicated hospital course. Discharge home on day two post op LTCS. ] - Physical Exam Vital Signs Temp Pulse Resp BP Pulse Ox 98.6 F 93 16 127/60 H 96 05/11/19 08:33 05/11/19 08:33 05/11/19 08:33 05/11/19 08:33 05/11/19 08:33 Oxygen Delivery Method Room Air Weight: 276 lb 6.4 oz Body Mass Index (BMI) 50.5 Intake and Output for Last 24 Hours 05/09/19 05/10/19 05/11/19 23:59 23:59 23:59 Intake Total 7864.67 / 7864.67 400 / 400 Output Total 2350 / 2350 1775 / 1775 Balance 5514.67 / 5514.67 -1375 / -1375 Discharge Diet: No Restrictions Discharge Activity: Return to Normal Activity, May not drive while taking narcotic pain medications., May Shower May resume sexual activity in: 4-6 weeks Weight Bearing Status: Full weight bearing Additional Activity Instructions:: Nothing in the vagina for 4-6 weeks. You may return to work/school in 6 weeks. Call your doctor if your incision/area has: Continuous Slow Oozing, Sudden Increased Bleeding, Increased Pain/ Swelling, Increased Redness, Foul Smelling Discharge Call your doctor if you observe: Fever of 101 or Higher, Inability to urinate, Inability to have a bowel movement, Using more than one pad per hour, Shortness of breath, Chest pain, Calf discomfort, Uncontrolled pain Suture Line Care: Avoid Pulling/Pushing, Avoid Pinching/Bending Home Medications: Medications to take at Discharge Vits [Prenatabs FA ] 1 tablet PO DAILY 11/22/17 Ibuprofen [Motrin] 600 mg PO Q6H PRN PRN tab 05/11/19 Oxycodone HCl/Acetaminophen [Percocet 5/325] 1 - 2 tab PO Q4H PRN PRN 7 Days #20 tab 08/25/19 Following Prescrptions Were Given to Patient: Oxycodone HCl/Acetaminophen [Percocet 5/325] 1 - 2 tab PO Q4H PRN PRN 7 Days #20 tab PRN Reason: Pain Prescription Printed Primary Care Physician: Care Physician,No Primary [Primary Care Provider] - Please Follow Up With: Jaskaran Quiroz Medical Necessity - Tobacco Use Smoking Status: Never smoker Meaningful Use Info Meaningful Use Diagnoses (Choose all that apply): None applicable
[2019-05-11] MEDS: Acetaminophen 500 MG Tablet 1000 MG PO (10:57)
[2019-05-11 14:04] VITALS: BP 122/77; PULSE 101; RESP 16; TEMP 36.9; O2SAT 98
[2019-05-11] MEDS: Senna/Docusate Sodium 1 Tablet PO (14:46)
== END 2019-05-11 15:15 | disposition home or self-care (01) | DRG 540 ==
PROVIDERS: Admitting Provider Obstetrics & Gynecology; Visit Provider Obstetrics & Gynecology
PROC: 10D00Z1 Extraction of Products of Conception, Low, Open Approach (ICD-10-PCS; CPT 59514; principal; 2019-05-09 07:15)
DX: O34.211 Maternal care for low transverse scar from previous cesarean delivery (principal); Z30.2 Encounter for sterilization; Z37.0 Single live birth; Z3A.39 39 weeks gestation of pregnancy
CPT/HCPCS: 82565; 84450; 84460; 84550; 85025; 85027; 85610; 85730; 86850; 86900; 86901; 99218; J7120; A4216; G0378; J2405

== ENCOUNTER → 2022-11-02 | Outpatient (CLI) | payer MEDICAID, SELFPAY ==
--- NOTE | 2022-11-02 14:03 | ECHOD_ITS ---
Reason For Study: SYNCOPE Procedure This was a 2D Doppler, Color Flow transthoracic echocardiogram. Exam performed in department. Left Ventricle Normal LV size. Left ventricular systolic function is normal. The estimated ejection fraction is 60 %. Normal diastology for age. No regional wall motion abnormalities noted. Right Ventricle Normal RV size. Normal systolic function. Atria Normal left atrium. Normal right atrium. Mitral Valve Normal mitral valve. Tricuspid Valve Normal tricuspid valve. Mild tricuspid valve insufficiency. Pulmonary artery systolic pressure is 25 mmHg. Aortic Valve Normal aortic valve. Trisinus/trileaflet aortic valve. Pulmonic Valve Normal pulmonic valve. Great Vessels Normal aortic root. The pulmonary artery is normal size. Normal inferior vena cava. Pericardium/Pleural No pericardial effusion. MMode/2D Measurements & Calculations LVIDd: 5.3 cm IVSd: 0.79 cm Ao root diam: 2.5 cm LVIDs: 3.4 cm LVPWd: 0.70 cm FS: 36.2 % LAV(MOD-sp4): 62.4 ml LVAd ap4: 35.4 cm2 SV(MOD-sp4): 84.9 ml LVLd ap4: 8.4 cm EDV(MOD-sp4): 121.6 ml EDV(sp4-el): 127.5 ml LVAs ap4: 17.4 cm2 LVLs ap4: 6.8 cm ESV(MOD-sp4): 36.6 ml ESV(sp4-el): 37.7 ml EF(MOD-sp4): 69.9 % EF(sp4-el): 70.4 % SV(sp4-el): 89.7 ml LA A4 area: 21.5 cm2 LA dimension(2D): 3.6 cm RA A4 area: 14.2 cm2 Time Measurements MV dec time: 0.11 sec Doppler Measurements & Calculations MV E max max: 88.6 cm/sec Lat Peak E' Max: 15.6 cm/sec Med Peak E' Max: 13.0 cm/sec MV A max max: 66.3 cm/sec E/E' lat: 5.7 E/E' med: 6.8 MV E/A: 1.3 MV V2 max: 116.6 cm/sec Ao V2 max: 158.3 cm/sec MV max P.5 mmHg MV dec slope: 786.4 cm/sec2 Ao max P.1 mmHg MV V2 mean: 75.8 cm/sec Ao V2 mean: 123.1 cm/sec MV mean P.6 mmHg Ao mean P.6 mmHg MV V2 VTI: 28.9 cm Ao V2 VTI: 31.4 cm AV (velocity ratio): 0.73 LV V1 max: 114.7 cm/sec PA V2 max: 128.9 cm/sec TR max max: 238.8 cm/sec LV V1 max P.3 mmHg PA V2 mean: 92.6 cm/sec TR max P.8 mmHg LV V1 mean P.3 mmHg LV V1 mean: 86.2 cm/sec LV V1 VTI: 23.0 cm ECHO/Echo Complete Interpretation Summary Normal LV size. Left ventricular systolic function is normal. The estimated ejection fraction is 60 %. Pulmonary artery systolic pressure is 25 mmHg. Ordering Physician: Marco Rasmussen Referring Physician: HARRY STERN Performed By: Patsy Mobley RCS
== END | disposition home or self-care (01) ==
LOC: CVS 14:00
PROVIDERS: PCP Physician Assistant; Visit Provider Internal Medicine Cardiovascular Disease
DX: R55 Syncope and collapse (principal); R00.2 Palpitations
CPT/HCPCS: 93306

== ENCOUNTER 2022-11-05 15:20 | Emergency (ER) | payer MEDICAID, SELFPAY ==
[2022-11-05 15:21] VITALS: BP 170/130; PULSE 93; RESP 16; TEMP 35.6; O2SAT 97; BMI 108.8
--- NOTE | 2022-11-05 15:44 | EX.ED.DYSGE1 ---
HPI History of Present Illness Chief Complaint: Flank Pain Informant: patient Onset/Context/Timing Onset: Today and Hours (1) Context: Sudden Onset Timing: Continuous Quality: Stabbing Location: Left flank Worsened by: Nothing Relieved by: Nothing Narrative Narrative: Patient presents with left flank pain that began approximately 1 hour prior to arrival. Patient states it began rather suddenly after she was done going to the bathroom. Patient states she stood up and noted the pain in her left flank. Patient describes the pain as stabbing. Patient states it has been constant. Patient states nothing makes her pain worse and nothing makes it better. Patient states she is unable to find a position of comfort. Patient admits to some subjective fevers and chills. Patient admits to some urinary frequency. Patient admits to some nausea but denies any vomiting. PFSH [facility] Medical History Anxiety and depression Asthma Chronic back pain Chronic hypertension affecting Chronic migraine without aura Palpitations depression Home Medications fluoxetine 10 mg capsule (Prozac) 10 mg PO DAILY 08/25/22 [History Last Taken Unknown] hydrocodone-acetaminophen 5-325mg 5mg-325mg 1 tab PO Q6H PRN PRN Pain 3 days #10 TABLETS 11/05/22 [Rx Last Taken Unknown] Allergy/AdvReac Type Severity Reaction Status Date / Time insect venom Allergy Hives Verified 10/25/22 15:00 Family History Mother Cancer Breast, Ovarian, Brain Hypertension Diabetes Father Heart disease Murmur Cancer Lung Grandmother Cancer Ovarian Grandfather Heart disease Diabetes Grandfather Heart disease Surgical History delivery delivered History of cholecystectomy Social History Smoking Status: Never smoker alcohol intake: current alcohol intake frequency: other details: rare substance use type: does not use caffeine: Yes (once every 2-3 days) Type: carbonated beverages, coffee and tea ROS ROS ED Constitutional Constitutional ED: Reports chills, fever(s) and subjective Eyes Eyes: Denies blurry vision or change in vision ENT ENT ED: Denies rhinorrhea or sore throat Cardiovascular Cardiovascular: Denies chest pain or palpitations Respiratory/Chest Respiratory/Chest: Denies cough or dyspnea Gastrointestinal Gastrointestinal: Reports nausea; Denies vomiting Genitourinary Genitourinary ED: Reports urinary frequency; Denies dysuria or hematuria Musculoskeletal Musculoskeletal: Reports back pain; Denies neck pain Integumentary Denies abscess or rash Neurologic Neurologic: Reports headache(s); Denies weakness Allergic/Immunologic Allergic/Immunologic ED: Denies mouth swelling or urticaria EXAM Physical Exam Const Vital Signs: 11/05/22 15:21 Temperature 96.0 F L Temperature Source Temporal Pulse Rate 93 Respiratory Rate 16 Blood Pressure 170/130 H Blood Pressure Mean 143 Pulse Ox 97 Oxygen Delivery Method Room Air Positive well nourished, well developed and obese General Appearance ED: well developed and NAD Nutritional Appearance: obese HEENT Reports moist mucous membranes Neck supple and no JVD Resp normal respiratory effort and clear to auscultation bilaterally Cardio regular rate, regular rhythm and no murmurs GI normal to inspection, nondistended, normoactive bowel sounds Palpation: soft and tender LLQ and LUQ; Negative for guarding or rebound tenderness present Back/Spine General Back: CVA tenderness left Extremity normal to inspection General Extremety ED: Negative for edema or tenderness General Extremity: Negative for edema Neuro oriented x3, CN's II-XII intact bilaterally and no sensory deficits noted Sensorium / Orientation: alert Motor Exam: strength 5/5 throughout Psych mental status grossly normal Skin no rashes or lesions noted MDM MDM MDM Narrative Medical decision making narrative: Differential diagnosis includes pyelonephritis, kidney stone, urinary tract infection, and gastroenteritis. CT scan of the abdomen pelvis will be obtained to assess for ureteral calculus and pyelonephritis. Urinalysis will be obtained to assess for urinary tract infection and hematuria. CBC will be obtained to assess for leukocytosis and anemia. Basic metabolic profile will be obtained to assess for renal function and electrolyte abnormality. Urine hCG will be obtained to assess for status. Lab Data Attestation: I reviewed the patient's lab results. Lab results narrative: CBC was reviewed. There is a mild leukocytosis of 14.1. The remainder was within normal limits. Basic metabolic profile was reviewed and was essentially within normal limits. Urinalysis was reviewed. There is no evidence of urinary tract infection or hematuria. Urine hCG was reviewed and was negative. Labs: Laboratory Results - last 24 hr 11/05/22 11/05/22 11/05/22 16:12 16:12 16:12 WBC 14.1 H RBC 4.94 Hgb 13.8 Hct 41.6 MCV 84.2 MCH 27.9 MCHC 33.2 RDW Std Deviation 39.3 RDW Coeff of [place] 12.9 Plt Count 334 MPV 9.7 Immature Gran % (Auto) 0.400 Neut % (Auto) 62.2 Lymph % (Auto) 29.0 [place] % (Auto) 6.2 Eos % (Auto) 1.8 Baso % (Auto) 0.4 Absolute Neuts (auto) 8.8 H Absolute Lymphs (auto) 4.09 Nucleated RBC % 0 Sodium 142 Potassium 3.5 Chloride 109 H Carbon Dioxide 23.0 Anion Gap 10 BUN 18 Creatinine 0.73 Estim Creat Clear Calc 93.17 Est GFR (MDRD) Af Amer 124 Est GFR (MDRD) Non-Af 103 BUN/Creatinine Ratio 24.6 H Glucose 105 Calcium 9.0 Urine Color Yellow Urine Clarity Clear Urine pH 7.0 Ur Specific [place] 1.015 Urine Protein Negative Urine Glucose (UA) Normal Urine Ketones Negative Urine Occult Blood 10 H Urine Nitrite Negative Urine Bilirubin Negative Urine Urobilinogen Normal Ur Leukocyte Esterase Negative Urine RBC 0-5 SEEN Urine WBC 0-5 SEEN Ur Squamous Epith Cells 0-5 SEEN Urine Bacteria 2+ Urine Mucus 0 SEEN Urine Test 11/05/22 16:19 WBC RBC Hgb Hct MCV MCH MCHC RDW Std Deviation RDW Coeff of [place] Plt Count MPV Immature Gran % (Auto) Neut % (Auto) Lymph % (Auto) [place] % (Auto) Eos % (Auto) Baso % (Auto) Absolute Neuts (auto) Absolute Lymphs (auto) Nucleated RBC % Sodium Potassium Chloride Carbon Dioxide Anion Gap BUN Creatinine Estim Creat Clear Calc Est GFR (MDRD) Af Amer Est GFR (MDRD) Non-Af BUN/Creatinine Ratio Glucose Calcium Urine Color Urine Clarity Urine pH Ur Specific [place] Urine Protein Urine Glucose (UA) Urine Ketones Urine Occult Blood Urine Nitrite Urine Bilirubin Urine Urobilinogen Ur Leukocyte Esterase Urine RBC Urine WBC Ur Squamous Epith Cells Urine Bacteria Urine Mucus Urine Test Negative Radiography Diagnostic Testing: Clinical Impression(s) from Imaging Studies Abdomen/Pelvis CT 11/05/22 15:50 IMPRESSION: Obstruction of the left collecting system due to a 5 mm stone at the left UVJ. There is left-sided hydronephrosis and hydroureter. Electronically Signed: Nabil Mi MD at 17:22 EST , CT scan of the abdomen pelvis was obtained. There is a 5 mm calculus at the left ureterovesicular junction. There is left-sided hydronephrosis and hydroureter. This was interpreted by the radiologist and was also independently reviewed by myself. There is no evidence of obstruction or free air. There is no free fluid. Treatment and Re-Evaluation Narrative: Patient was given IV fluids, morphine, Toradol, and Zofran. Patient is feeling better on reevaluation. Patient was advised of her findings. Patient was instructed to drink plenty of fluids. Patient was given a prescription for [place]. Patient was instructed to follow-up with her primary care physician in 5 to 7 days. Patient was also given referral for urology. Patient understood and was agreeable with the plan. All questions were answered. Discharge Plan Triage Chief Complaint: Flank Pain ED Provider: Panfilo Chin Dx/Rx/DC Orders Clinical Impression: Calculus of distal left ureter, Left flank pain Instructions: ED Kidney Stone w/ Colic Prescriptions: New hydrocodone-acetaminophen [hydrocodone-acetaminophen] 5-325 mg tablet 1 tab PO Q6H PRN PRN (Reason: Pain) 3 Days Qty: 10 0RF No Action fluoxetine [Prozac] 10 mg capsule 10 mg PO DAILY Primary Care Provider: Alma Delia Chaidez Referrals: Anthony Barriga MD [Med Staff - Active Staff] - 3-5 Days Alma Delia Chaidez PA [Primary Care Provider] - 3-5 Days Disposition Disposition: Home, Self Care
--- NOTE | 2022-11-05 15:50 | CT_ITS ---
EXAM: CT ABDOMEN AND PELVIS WITHOUT INTRAVENOUS CONTRAST CLINICAL INDICATION: Left flank pain TECHNIQUE: Helically acquired images were obtained of the abdomen and pelvis without intravenous contrast. This CT exam was performed using one or more of the following dose reduction techniques: automated exposure control, adjustment of the mA and/or kV according to patient size, and/or use of iterative reconstruction technique. This report was created using [employer] report generation technology. COMPARISON: None. FINDINGS: LOWER THORAX: Unremarkable. Lung bases are clear. No cardiomegaly. No significant pericardial effusion. ABDOMEN: LIVER: Unremarkable. Homogeneous. GALLBLADDER AND BILE DUCTS: Surgical clips from cholecystectomy. No intra- or extrahepatic biliary ductal dilation. PANCREAS: Unremarkable. No focal cystic mass. SPLEEN: Unremarkable. Normal size without focal cystic or solid mass. ADRENALS: Unremarkable. No nodules. KIDNEYS AND URETERS: There is mild left-sided hydronephrosis and hydroureter there is a 5 mm stone at the left UVJ. Normal renal size and position. STOMACH AND BOWEL: Unremarkable. No stomach or bowel distention. No focal inflammatory change. PELVIS: APPENDIX: No evidence of acute appendicitis. BLADDER: Unremarkable. REPRODUCTIVE: There are bilateral tubal ligation clips. ABDOMEN and PELVIS: INTRAPERITONEAL SPACE: Unremarkable. No ascites or other fluid collection. No free air. BONES/JOINTS: Unremarkable. No suspicious lytic or blastic abnormality. SOFT TISSUES: Unremarkable. No discrete abdominal or pelvic wall hernia. VASCULATURE: Unremarkable. Abdominal aorta is non-dilated. LYMPH NODES: Unremarkable. No enlarged lymph nodes. CT/Abdomen/Pelvis without Cont IMPRESSION: Obstruction of the left collecting system due to a 5 mm stone at the left UVJ. There is left-sided hydronephrosis and hydroureter. Electronically Signed: Nabil Mi MD at 17:22 EST ,
[2022-11-05 15:58] VITALS: BMI 50.2
[2022-11-05] MEDS: Ketorolac 30 MG/ML Syringe IV (16:06)
[2022-11-05] MEDS: Ondansetron 4 MG/2 ML Vial IV (16:06)
[2022-11-05] MEDS: 0.9% Normal Saline 1,000 ML 1000 ML IV (16:06)
[2022-11-05] MEDS: Morphine 4 MG/ML Syringe IV (16:07)
[2022-11-05 16:22] LABS: Color, Urine Yellow (Yellow); Glucose, Dipstick Normal (Normal); Ketone-Dipstick Negative (Negative); Leukocyte Esterase-Dipstick Negative /ul (Negative); Mucous, Urine 0 SEEN /hpf (<or=2+); Nitrite-Dipstick Negative (Negative); Occult Blood-Urine 10 /ul (Negative); Protein-Dipstick Negative (Negative); Specific Gravity, Urine 1.015 (1.002-1.030); Urine Bilirubin Dipstick Negative (Negative); Urine Clarity Clear (Clear); Urine Urobilinogen Normal (Normal)
[2022-11-05 16:25] LABS: Absolute Lymphocyte Count 4.09 X10^3/uL (0.83-4.51); Absolute Neutrophil Count 8.8 X10^3/uL (2.0-7.7); Basophil# 0.05 X10^3/uL; Basophil% 0.4 % (0-1); Eosinophil# 0.25 X10^3/uL; Eosinophils% 1.8 % (0-5); Hematocrit 41.6 % (37-47); Hemoglobin 13.8 g/dL (12.0-15.0); Lymphocyte # 4.09 X10^3/ul (0.83-4.51); Mean Corp Hgb Conc 33.2 g/dL (32-36); Mean Corpuscular Hgb 27.9 pg (27.0-32.0); Mean Corpuscular Volume 84.2 fL (81-99); Mean Platelet Vol. 9.7 fl (6.2-12.0); Monocyte# 0.88 X10^3/uL; Monocyte% 6.2 % (0-10); NRBC Flagged by Analyzer 0 % (0-5); Neutrophil # 8.79 X10^3/uL (2.7-7.7); Neutrophil % 62.2 % (47-70); Platelet Count 334 K/mm3 (150-450); RBC Distribution Width CV 12.9 % (11.6-14.6); RBC Distribution Width SD 39.3 fl (35.1-43.9); Red Blood Count 4.94 M/mm3 (4.2-5.4); White Blood Count 14.1 K/mm3 (4.4-11.0)
[2022-11-05 16:30] LABS: Bacteria 2+ /hpf (None Seen); Red Blood Cells-Urine 0-5 SEEN /hpf (0-5); Squamous Epithelial Cells - UA 0-5 SEEN /hpf (5-10); White Blood Cells 0-5 SEEN /hpf (0-5)
[2022-11-05 16:30] LABS: Internal QC Validated? YES +Cl - CLEAR BKGD; Pregnancy, Urine Negative Negative
[2022-11-05 16:40] LABS: Anion Gap 10 (5-15); BUN 18 mg/dL (7-18); BUN/Creat Ratio 24.6 RATIO (10-20); Chloride 109 mmol/L (98-107); Creatinine, Serum 0.73 mg/dL (0.55-1.02); EST Glomerular Filtration Rate 103 mL/min (>60); Est Glom Filt Rate - Afr Amer 124 mL/min (>60); Estimated Creatinine Clearance 93.17 ml/min; Glucose 105 mg/dL (74-106); Potassium 3.5 mmol/L (3.5-5.1); Sodium Level 142 mmol/L (136-145)
[2022-11-05 18:10] VITALS: BP 139/85; RESP 18
== END 2022-11-05 18:30 | disposition home or self-care (01) ==
PROVIDERS: Emergency Provider Emergency Medicine; PCP Physician Assistant; Visit Provider Emergency Medicine
DX: N13.2 Hydronephrosis with renal and ureteral calculous obstruction (principal); R35.0 Frequency of micturition; E66.9 Obesity, unspecified
CPT/HCPCS: 74176; 80048; 81001; 81025; 85025; 96361; 96374; 96375; 99284; J7030; A4216; J2405

== ENCOUNTER → 2022-12-05 | Outpatient (CLI) | payer MEDICAID, SELFPAY ==
--- NOTE | 2022-12-05 17:09 | PCM.TILTTABL ---
Staff Staff: Montserrat Lao and Nveaeh Garsia Summary Pre Test Resting HR: 88 Pre Test Resting BP: 151/89 Minimum Test HR: 76 Maximum Test HR: 100 Minimum Test BP: 136/61 Maximum Test BP: 152/89 Physician Tilt Table Report Patient's Physicians Primary Care Physician: Alma Delia Chaidez Manager Mental Health: Marco Rasmussen Indications/Diagnosis: Possible stromal orthostatic tachycardia syndrome Procedure Comments: The patient was brought to the noninvasive lab in the postop septic nonsedated state. Initial EKG demonstrated normal sinus rhythm with no acute changes heart rate was noted to be 88 bpm with a resting blood pressure 150/89 mmHg. The patient was then placed in the 70 degree head upright tilt position for 20 minutes. Continuous EKG monitoring vitals were obtained. Patient noted complaints of dizziness with no appreciable change in heart rate suggestive of any hemodynamic compromise. Patient complained of dizziness and headache. The patient was then put back in the recovery position and vitals measured. No sublingual nitroglycerin was administered. Summary: Negative tilt table test with no evidence of postural orthostatic tachycardia syndrome noted
[2022-12-05 17:13] VITALS: BP 136/61; BP 151/89; BP 152/89
== END | disposition home or self-care (01) ==
LOC: CVS 09:03
PROVIDERS: PCP Physician Assistant; Visit Provider Internal Medicine Cardiovascular Disease
DX: R00.2 Palpitations (principal)
CPT/HCPCS: 93660; J7040; A4216

== ENCOUNTER 2025-05-15 20:32 | Emergency (ER) | payer MEDICAID, SELFPAY ==
[2025-05-15 20:33] VITALS: BP 195/105; PULSE 98; RESP 24; TEMP 37.4; O2SAT 99
--- NOTE | 2025-05-15 20:57 | EX.ED.DYSGE1 ---
HPI <DAO Bright - Last Filed: 05/15/25 22:02> History of Present Illness Chief Complaint: Flank Pain Narrative Narrative: 29-year-old female with past medical history of kidney stones, cholecystectomy, x 2 presents with right flank pain. Around noon she started to have urinary frequency and burning then a couple hours later developed severe right flank pain. She took Tylenol without relief. She states she was unable to urinate for 4 hours but was able to go here. No fevers or chills. She had kidney stones once in the past that passed on their own. PFSH <DAO Bright - Last Filed: 05/15/25 22:02> [facility] Medical History Anxiety and depression Asthma Chronic back pain Chronic hypertension affecting Chronic migraine without aura Palpitations depression Home Medications ?Medication ?Instructions ?Recorded ?Last Taken ?Type fluoxetine 10 mg capsule (Prozac) 10 mg PO DAILY 08/25/22 Unknown History hydrocodone-acetaminophen 5-325mg 1 tab PO Q6H PRN PRN Pain 3 days 11/05/22 Unknown Rx 5mg-325mg #10 TABLETS ondansetron 4 mg disintegrating 4 mg PO Q6H PRN PRN Nausea #12 tabs 05/15/25 Unknown Rx tablet oxycodone-acetaminophen 5 mg-325 1 tab PO Q6H PRN pain 3 days #12 05/15/25 Unknown Rx mg tablet (Percocet) tabs tamsulosin 0.4 mg capsule (Flomax) 0.4 mg PO DAILY #7 caps 05/15/25 Unknown Rx Allergy/AdvReac Type Severity Reaction Status Date / Time insect venom Allergy Hives Verified 05/15/25 20:33 Family History Mother Cancer Breast, Ovarian, Brain Hypertension Diabetes Father Heart disease Murmur Cancer Lung Grandmother Cancer Ovarian Grandfather Heart disease Diabetes Grandfather Heart disease Surgical History delivery delivered History of cholecystectomy Social History Smoking Status: Never smoker alcohol intake: current alcohol intake frequency: other details: rare substance use type: does not use caffeine: Yes (once every 2-3 days) Type: carbonated beverages, coffee and tea ROS <DAO Bright - Last Filed: 05/15/25 22:02> ROS ED ROS Narrative Constitutional: Negative for fever, chills, malaise. GI: Positive for abdominal pain. Negative for vomiting, diarrhea, constipation, melena, hematochezia. : Positive for frequency. EXAM <DAO Bright - Last Filed: 05/15/25 22:02> Physical Exam Narrative Exam Narrative: CONST: Patient looks uncomfortable sitting in bed. EYES: Normal inspection. NECK: Normal inspection. RESP: No respiratory distress, CTAB. CVS: Regular rate and rhythm, no murmur, no gallop. ABD: Soft with right mid abdominal tenderness, no guarding or rebound, nondistended. Back: Normal inspection, right CVA tenderness. SKIN: Color normal, no rash, warm, dry, intact. EXTREMITIES: Normal appearance, no pedal edema. NEURO: Alert and answering questions appropriately. PSYCH: Normal affect. Const Vital Signs: 05/15/25 20:33 Temperature 99.4 F H Temperature Source Oral Pulse Rate 98 Respiratory Rate 24 H Blood Pressure 195/105 H Blood Pressure Mean 135 Pulse Ox 99 Oxygen Delivery Method Room Air <Dr. Mathew Juares MD - Last Filed: 05/15/25 21:24> Physical Exam Const Vital Signs: 05/15/25 20:33 Temperature 99.4 F H Temperature Source Oral Pulse Rate 98 Respiratory Rate 24 H Blood Pressure 195/105 H Blood Pressure Mean 135 Pulse Ox 99 Oxygen Delivery Method Room Air MDM <DAO Bright - Last Filed: 05/15/25 22:02> MDM MDM Narrative Medical decision making narrative: Differential includes kidney stone, pyelonephritis, musculoskeletal 29-year-old female with right flank pain and dysuria. She appears uncomfortable but nontoxic. Vital stable. She has right sided abdominal and right CVA tenderness. No peritoneal signs. White count at 13.7. CMP pending. Serum negative. UA this 5-10 RBCs and 1+ bacteria but is contaminated so we will send for culture and hold off on antibiotics. On my review the CT scan shows an obstructed right kidney stone at the UVJ with mild hydronephrosis. Plan is pain control here with IV Toradol and morphine, reassessment, and discharged home with Percocet, Zofran, and Flomax. I have personally performed a face to face assessment of the patient and have reviewed the ROSS Note. I performed a substantive portion of the visit including all aspects of the following. My schmidt findings include: History is [29-year-old female history of 1 prior kidney stone no prior kidney stone resection. Prior cholecystectomy and tubal ligation. States she started having right flank pain this afternoon she is concerned she may have another kidney stone. Associated nausea. No fever. No diarrhea.] Exam is [[id number] female vital signs stable afebrile. Does not look septic toxic. Complaining of pain. H EENT exam pupils round react light. Lungs clear. Heart regular rhythm rate about 95 no murmur. Chest wall ribs nontender. Abdomen soft nondistended normal bowel sounds without peritoneal signs. Complaint of right flank pain its only minimally reproducible. No CVA tenderness. No rashes. No signs of trauma. Right lower quadrant is nontender. There is no obstruction. Moving all 4 extremities. She is awake alert. Answer questions following commands] Medical Decision Making [29-year-old female right flank pain concern for possible kidney stone. Prior tubal ligation and cholecystectomy. Screening labs to be obtained CAT scan. She be treated with IV Toradol, morphine and Zofran.] Other additions or changes: [None] Lab Data Labs: Laboratory Results - last 24 hr 05/15/25 05/15/25 20:45 20:50 WBC 13.7 H RBC 4.75 Hgb 13.5 Hct 39.8 MCV 83.8 MCH 28.4 MCHC 33.9 RDW Std Deviation 41.6 RDW Coeff of [place] 13.5 Plt Count 340 MPV 10.9 Immature Gran % (Auto) 0.200 Neut % (Auto) 52.8 Lymph % (Auto) 36.6 Addison % (Auto) 7.4 Eos % (Auto) 2.6 Baso % (Auto) 0.4 Absolute Neuts (auto) 7.3 Absolute Lymphs (auto) 5.02 H Nucleated RBC % 0 Serum , Qual NEGATIVE Urine Color Yellow Urine Clarity Cloudy Urine pH 7.0 Ur Specific [place] 1.015 Urine Protein 30 H Urine Glucose (UA) Normal Urine Ketones Negative Urine Occult Blood 50 H Urine Nitrite Negative Urine Bilirubin Negative Urine Urobilinogen Normal Ur Leukocyte Esterase Negative Urine RBC 5-10 SEEN Urine WBC 0-5 SEEN Ur Squamous Epith Cells 5-10 SEEN Amorphous Sediment 4+ Urine Bacteria 1+ Urine Mucus 0 SEEN <Dr. Matehw Juares MD - Last Filed: 05/15/25 21:24> [facility] MDM Narrative Medical decision making narrative: I have personally performed a face to face assessment of the patient and have reviewed the ROSS Note. I performed a substantive portion of the visit including all aspects of the following. My schmidt findings include: History is [29-year-old female history of 1 prior kidney stone no prior kidney stone resection. Prior cholecystectomy and tubal ligation. States she started having right flank pain this afternoon she is concerned she may have another kidney stone. Associated nausea. No fever. No diarrhea.] Exam is [[id number] female vital signs stable afebrile. Does not look septic toxic. Complaining of pain. H EENT exam pupils round react light. Lungs clear. Heart regular rhythm rate about 95 no murmur. Chest wall ribs nontender. Abdomen soft nondistended normal bowel sounds without peritoneal signs. Complaint of right flank pain its only minimally reproducible. No CVA tenderness. No rashes. No signs of trauma. Right lower quadrant is nontender. There is no obstruction. Moving all 4 extremities. She is awake alert. Answer questions following commands] Medical Decision Making [29-year-old female right flank pain concern for possible kidney stone. Prior tubal ligation and cholecystectomy. Screening labs to be obtained CAT scan. She be treated with IV Toradol, morphine and Zofran.] Other additions or changes: [None] History & Record Review Discussion w/independent historian: Patient Additional record(s) reviewed:: Prior inpatient record, Prior outpatient record, Prior ED visit, Prior labs and No prior records Lab Data Attestation: I reviewed the patient's lab results. Lab results narrative: CBC shows a white count 13.7. H&H of 13 and 39. Platelets 340. Serum test negative. Labs: Laboratory Results - last 24 hr 05/15/25 05/15/25 20:45 20:50 WBC 13.7 H RBC 4.75 Hgb 13.5 Hct 39.8 MCV 83.8 MCH 28.4 MCHC 33.9 RDW Std Deviation 41.6 RDW Coeff of [place] 13.5 Plt Count 340 MPV 10.9 Immature Gran % (Auto) 0.200 Neut % (Auto) 52.8 Lymph % (Auto) 36.6 Addison % (Auto) 7.4 Eos % (Auto) 2.6 Baso % (Auto) 0.4 Absolute Neuts (auto) 7.3 Absolute Lymphs (auto) 5.02 H Nucleated RBC % 0 Serum , Qual NEGATIVE Urine Color Yellow Urine Clarity Cloudy Urine pH 7.0 Ur Specific [place] 1.015 Urine Protein 30 H Urine Glucose (UA) Normal Urine Ketones Negative Urine Occult Blood 50 H Urine Nitrite Negative Urine Bilirubin Negative Urine Urobilinogen Normal Ur Leukocyte Esterase Negative Urine RBC 5-10 SEEN Urine WBC 0-5 SEEN Ur Squamous Epith Cells 5-10 SEEN Amorphous Sediment 4+ Urine Bacteria 1+ Urine Mucus 0 SEEN Discharge Plan Triage Chief Complaint: Flank Pain ED Midlevel Provider: Lina Limon ED Provider: Mathew Juares Dx/Rx/DC Orders Clinical Impression: Kidney stone on right side, Right flank pain Instructions: ED Kidney Stone with Pain Prescriptions: New oxycodone-acetaminophen [Percocet] 5-325 mg tablet 1 tab PO Q6H PRN (Reason: pain) 3 Days Qty: 12 0RF ondansetron 4 mg tablet,disintegrating 4 mg PO Q6H PRN PRN (Reason: Nausea) Qty: 12 0RF tamsulosin [Flomax] 0.4 mg capsule 0.4 mg PO DAILY Qty: 7 0RF No Action fluoxetine [Prozac] 10 mg capsule 10 mg PO DAILY hydrocodone-acetaminophen [hydrocodone-acetaminophen] 5-325 mg tablet 1 tab PO Q6H PRN PRN (Reason: Pain) 3 Days Qty: 10 0RF Primary Care Provider: Alma Delia Chaidez Referrals: Alma Delia Chaidez, PA [Primary Care Provider] - Activity Restrictions/Additional Instructions: There is a right sided kidney stone in the ureter right before your bladder. Drink plenty of fluids, take the Percocet and nausea medicine as needed. You can also take [id number] ibuprofen 600 mg every 6 hours. Return if symptoms worsen or if you develop a fever, your pain is not manageable, or if you are unable to urinate. Print Language: Kenyan Disposition Disposition: Home, Self Care
[2025-05-15 21:02] LABS: Hematocrit 39.8 % (37-47); Hemoglobin 13.5 g/dL (12.0-15.0); Immature Granulocytes Count 0.030 X10^3/uL (0.0-0.0); Mean Corp Hgb Conc 33.9 g/dL (32-36); Mean Corpuscular Volume 83.8 fL (81-99); Mean Platelet Vol. 10.9 fl (6.2-12.0); NRBC Flagged by Analyzer 0 % (0-5); POSITIVE DIFFERENTIAL YES; Platelet Count 340 K/mm3 (150-450); RBC Distribution Width CV 13.5 % (11.6-14.6); RBC Distribution Width SD 41.6 fl (35.1-43.9); Red Blood Count 4.75 M/mm3 (4.2-5.4); White Blood Count 13.7 K/mm3 (4.4-11.0)
[2025-05-15 21:03] LABS: Mucous, Urine 0 SEEN /hpf (<or=2+)
[2025-05-15] MEDS: Ketorolac 30 MG/ML Syringe IV (21:08)
[2025-05-15] MEDS: 0.9% Normal Saline (1000mL) 1,000 ML 999 ML IV (21:08)
[2025-05-15 21:14] LABS: Color, Urine Yellow (Yellow); Glucose, Dipstick Normal (Normal); Ketone-Dipstick Negative (Negative); Leukocyte Esterase-Dipstick Negative /ul (Negative); Nitrite-Dipstick Negative (Negative); Occult Blood-Urine 50 /ul (Negative); Protein-Dipstick 30 mg/dl (Negative); Specific Gravity, Urine 1.015 (1.002-1.030); Urine Bilirubin Dipstick Negative (Negative)
[2025-05-15 21:18] LABS: Internal QC Validated? YES +Cl - CLEAR BKGD; Pregnancy, Serum, hCG Quali. NEGATIVE Negative; Record Kit Lot#, Serum Preg. 962302
--- NOTE | 2025-05-15 21:30 | CT_ITS ---
PROCEDURE: CT ABDOMEN/PELVIS WITHOUT CONTRAST 05/15/2025 REASON FOR EXAM: RIGHT FLANK PAIN TECHNIQUE: Procedure Code: CTABDPEL Modality: CT Procedure: ABDOMEN/PELVIS WITHOUT CONT Noncontrast technique limits evaluation of the abdominal and pelvic viscera. Coronal and Sagittal reconstruction series were provided. One or more dose reduction techniques were used (e.g., Automated exposure control, adjustment of the mA and/or kV according to patient size, use of iterative reconstruction technique). RADIATION DOSE SUMMARY: CTDlvol: 24.08 mGy DLP: 1377.83 mGycm COMPARISON: Abdominal CT 11/05/2022. FINDINGS: Lung bases: Clear. Liver: No significant abnormality. Gallbladder: Surgically absent. Spleen: Normal in size. Pancreas: Unremarkable. Adrenals: Unremarkable. Kidneys/Bladder: Small 4 mm obstructing stone in the distal right ureter just proximal to the ureterovesicular junction. Very mild upstream right hydroureteronephrosis. Additional single punctate nonobstructive stone in the upper pole of the right kidney. Urinary bladder is underdistended, grossly unremarkable without pericystic inflammatory changes. No stone within the bladder. Reproductive Organs: Normal in size. Bilateral tubal ligation clips, although the right adnexal clip has now migrated inferiorly in the pelvis. Bowel: No bowel obstruction or active inflammatory process. Appendix is not definitively identified but there are no pericecal inflammatory changes. Lymph nodes: No enlarged abdominopelvic lymph nodes. Vasculature: Normal caliber abdominal aorta and IVC. Peritoneum / Retroperitoneum: No ascites or free air. Bones: Unremarkable. CT/Abdomen/Pelvis without Cont IMPRESSION: Small 4 mm obstructing stone in the distal right ureter just proximal to the UV J. Very mild upstream right hydroureteronephrosis. Single additional punctate nonobstructive right renal s tone. Incidentally, there are adnexal tubal ligation clips present, with the right tu bal ligation clip now migrated inferiorly in the lower pelvis located within the cul-de-sac. Reading Location: [facility]
[2025-05-15 21:48] LABS: Red Blood Cells-Urine 5-10 SEEN /hpf (0-5); Squamous Epithelial Cells - UA 5-10 SEEN /hpf (5-10)
--- OUTSIDE RECORDS SUMMARY | 2025-05-15 21:56 | XMS RPT_ITS | CCD ---
Author Organization [facility]iniSyks Care Team Providers Care Chief Dietitian Name Role Phone DEANDRA LALITHA Ross Attending Unavailable PRADEEP CARLOS Referring Unavailable Bob Peter MD Primary Care Provider Bob Peter MD Primary Care Provider [phone] Bob Peter MD Primary Care Provider Care Physician, No Primary Primary Care Provider Unavailable Care Physician, No Primary Referring Provider Un available Dr. Marco Rasmussen Attending Provider DAO Koroma Primary Care Provider Dr. Marco Rasmussen Other Provider Marco Rasmussen Consulting Unavailable Marco Rasmussen Attending Unavailable Alma Delia Koroma Primary Care Unavailable Panfilo Chin Attending Unavailable Alma Delia Koroma Primary Care Unavailable Marco Rasmussen Attending Unavailable Care Physician, No Primary Primary Care Unava ilable Care Physician, No Primary Referring Unava ilable Marco Rasmussen Attending Unavailable Alma Delia Koroma Primary Care Unavailable Marco Rasmussen Attending Unavailable Alma Delia Koroma Primary Care Unavailable Alma Delia Koroma Primary Care Unavailable Marco Rasmussen Attending Unavailable Bob Peter MD Primary Care Provider [phone] JOSELINE MOSLEY Attending Unavailable ELIESER LUX Referring Unavailable BOB PETER Primary Care Unavailable Bob Peter MD Primary Care Provider Gloria SALES REPRESENTATIVE GRAPHIC ART.Elieser LATHAM Unavailable Alma Delia Chaidez PA-C Unavailable [phone] HECTOR BAUER Referring Unavailable BOB PETER Primary Care Unavailable LANDY GODFREY Attending Unavailable BOB PETER Primary Care Unavailable Allergies Allergy Classification Reported Allergen(s) Allergy Type Date of Onset Reaction(s) Facility (20 sources) Insect Venom; Translations: [insect venom] Drug [facility] Work Phone: Medications Current Medications Medication Drug Class(es) Dates Sig (Normalized) Sig (Original) acetaminophen 325 mg / HYDROcodone bitartrate 5 mg oral tablet (1 source) Opioid Agonist Start: 11-05-2022 take 1 tablet by mouth every six hours as needed Hydrocodone-Aceta minophen Active 1 TABLET PO EVERY 6 HOURS NEEDED 10 November 05, 2022 [id number] 200 actuat albuterol 0.09 mg/actuat metered dose inhaler (13 sources) beta2-Adrenergic Agonist Start: 09-04-2023 take 2 puff(s) by inhalation every four hours as needed for wheezing albuterol HFA (PROVENTIL HFA, VENTOLIN HFA) 90 mcg/actuation inhaler Inhale 2 Puffs as instructed every 4 hours as needed for wheezing/shortnes s of breath. 8 g 09/04/2023 Active Comment on above: Inhale 2 Puffs as in structed every 4 hours as needed for wheezing/shortness of breath. FLUoxetine 10 mg oral capsule (6 sources) Serotonin Reuptake Inhibitor Start: 08-25-2022 take 1 capsule by mouth once daily Fluoxetine (Prozac) 10 mg capsule Active 10 MG PO DAILY August 25, 2022 1:00am fluoxetine HCl ( PROZAC ORAL) Take by mouth. 0 Active Comment on above: Take by mouth. hydrOXYzine pamoate 25 mg oral capsule (19 sources) Antihistamine take 1 capsule by mouth every eight hours as needed hydrOXYzine pamoate (VISTARIL) 25 mg capsule Take 25 mg by mouth three times daily as needed. Active Comment on above: Take 25 mg by mouth three times daily as needed. MULTIVITAMIN ORAL (20 sources) MULTIVITAMIN ORA L Take by mouth once daily. Active MULTIVITAMIN ORA L Take by mouth once daily. 0 Active Comment on above: Take by mouth once d aily. naproxen 500 mg oral tablet (1 source) Nonsteroidal Anti-inflammatory Drug Start: 025 End: take 1 tablet by mouth twice daily at mealtime naproxen (NAPROSYN) 500 mg tablet Take 1 tablet by mouth two times a day with meals for 7 days. 14 tablet 04/29/2025 05/06/2025 Active omeprazole 20 mg delayed release oral capsule (19 sources) Proton Pump Inhibitor Start: End: take 1 capsule by mouth once daily before breakfast omeprazole (PRILOSEC) 20 mg capsule Indications: Gastroesophageal reflux disease with esophagitis without hemorrhage Take 1 capsule by mouth daily before breakfast. 1/2 hr before meal. 90 capsule 08/08/2023 Active Comment on above: Take 1 capsule by mo uth daily before breakfast. 1/2 hr before meal. Take 1 capsule by mo uth once daily. valACYclovir 1000 mg oral tablet (1 source) Herpesvirus Nucleoside Analog DNA Polymerase Inhibitor, Herpes Simplex Virus Nucleoside Analog DNA Polymerase Inhibitor, Herpes Zoster Virus Nucleoside Analog DNA Polymerase Inhibitor Start: 025 End: take 1 tablet by mouth twice daily valACYclovir (VALTREX) 1 gram tablet Take 1 tablet by mouth two times a day for 10 days. 20 tablet 1 04/29/2025 05/09/2025 Active Completed/Discontinued Medications Medication Drug Class(es) Dates Sig (Normalized) Sig (Original) acetaminophen 325 mg / oxyCODONE hydrochloride 5 mg oral tablet (1 source) Opioid Agonist Start: 05-11-2019 End: 05-19-2019 take 1 tablet by mouth every four hours as needed Oxycodone-Acetamin ophen Discontinued 1 - 2 TABLET PO EVERY 4 HOURS NEEDED 05 04May 11, 2019 May 19, 2019 12:07am Amitriptyline (5 sources) Tricyclic Antidepressant amitriptyline HCl (AMITRIPTYLINE ORAL) Take by mouth. 0 Active Comment on above: Take by mouth. 12 hr buPROPion hydrochloride 150 mg extended release oral tablet (5 sources) Aminoketone Start: 07-28-2020 take 1 tablet by mouth twice daily buPROPion SR (ZYBAN SR; WELLBUTRIN SR) 150 mg 12 hr tablet Take 1 tablet by mouth twice daily. 60 tablet 5 07/28/2020 Active Comment on above: Take 1 tablet by trudy twice daily. cholecalciferol 1.25 mg oral capsule (2 sources) Vitamin D Start: 07-24-2022 take 1 capsule by mouth every week cholecalciferol, Vitamin D3, (VITAMIN D3) 1,250 mcg (50,000 unit) cap capsule Take 1 capsule by mouth one time a week. 12 capsule 0 07/24/2022 Active Comment on above: Take 1 capsule by mo [facility] one time a week. escitalopram 20 mg oral tablet (8 sources) Serotonin Reuptake Inhibitor End: 12-31-2023 take 1 tablet by mouth once daily escitalopram oxalate (LEXAPRO) 20 mg tablet Take 20 mg by mouth once daily. 12/31/2023 Discontinued Comment on above: Take 20 mg by mouth once daily. melatonin 3 mg oral tablet (3 sources) Start: 06-05-2022 take 1 tablet by mouth once daily melatonin 3 mg tablet Take 3 mg by mouth once daily. 0 06/05/2022 Active Comment on above: Take 3 mg by mouth o nce daily. Vit,[id number] (Prenatabs Fa) 1 TABLET tablet (1 source) Start: 11-22-2017 End: 10-25-2022 take 1 tablet by mouth once daily Vit,Ejho89-Jwjn-Ar lic (Prenatabs Fa) 1 TABLET tablet Discontinued 1 TABLET PO DAILY November 22, 2017 1:00am October 25, 2022 4:01pm rizatriptan 10 mg oral tablet (17 sources) Serotonin-1b and Serotonin-1d Receptor Agonist Start: 02-22-2022 End: 12-31-2023 rizatriptan (MAXALT) 10 mg tablet 1 at onset of headache. May repeat in 2 hours if needed. Do not exceed more than 2 in 24 hours. 02/22/2022 12/31/2023 Discontinued Start: 07-28-2020 take 1 tablet by trudy th every two hours as needed rizatriptan (MAXALT MSW) 5 mg disintegrating tablet Take 1 tablet by mouth as needed. May repeat in 2 hours if needed 9 tablet 5 07/28/2020 Active Comment on above: Take 1 tablet by trudy th as needed. May repeat in 2 hours if needed 1 at onset of headac he. May repeat in 2 hours if needed. Do not exceed more than 2 in 24 hours. topiramate 50 mg oral tablet (5 sources) Start: 07-28-2020 take 1 tablet by mouth twice daily topiramate (TOPAMAX) 50 mg tablet Indications: Headaches , Hearing abnormally acute, right , Dizzy spells Take 1 tablet by mouth twice daily. 60 tablet 5 07/28/2020 Active Comment on above: Take 1 tablet by trudy th twice daily. Problems Active Problems Problem Classification Problem Date Documented Date Episodic/Chronic Abdominal pain (2 sources) Left flank pain; Translations: [Unspecified abdominal pain] Onset: 11-14-2022 11-13-2022 Episodic Anxiety disorders (20 sources) Mixed anxiety and depressive disorder; Translations: [Other specified anxiety disorders] Onset: 10-14-2019 10-14-2019 Chronic Calculus of urinary tract (1 source) Ureteric stone of lower third of ureter; Translations: [Calculus of ureter] 11-13-2022 Episodic Cardiac dysrhythmias (5 sources) Palpitations; Translations: [Palpitations] Onset: 12-13-2022 Episodic Conditions associated with dizziness or vertigo (2 sources) Lightheadedness; Translations: [Dizziness and giddiness] Episodic Endometriosis (5 sources) Uterine adenomyosis; Translations: [Adenomyosis of the uterus] Onset: 05-08-2024 05-08-2024 Chronic Esophageal disorders (2 sources) Gastro-esophageal reflux disease with esophagitis; Translations: [Gastroesophageal reflux disease with esophagitis without hemorrhage] 08-08-2023 Chronic Headache; including migraine (20 sources) Refractory migraine without aura; Translations: [Migraine without aura, intractable, without status migrainosus] Onset: 07-28-2020 02-28-2022 Chronic Hypertension complicating ; childbirth and the puerperium (16 sources) Chronic hypertension complicating AND/OR reason for care during ; Translations: [Unspecified pre-existing hypertension complicating , unspecified trimester] Onset: 10-10-2018 Resolved: 2023 10-10-2018 Chronic Mood disorders (20 sources) Recurrent major depressive episodes, mild ; Translations: [Major depressive disorder, recurrent, mild] Onset: 10-14-2019 10-14-2019 Chronic Nutritional deficiencies (20 sources) Vitamin D deficiency; Translations: [Vitamin D deficiency, unspecified] Onset: 07-24-2022 Chronic Other female genital disorders (2 sources) Postcoital bleeding; Translations: [Postcoital and contact bleeding] 03-25-2024 Chronic Other female genital disorders (1 source) Postcoital and contact bleeding; Translations: [PCB (post coital bleeding)] Onset: 05-06-2024 Chronic Other lower respiratory disease (1 source) Cough; Translations: [Acute cough] 09-04-2023 Episodic Other nervous system disorders (1 source) Other chronic pain; Translations: [Chronic bilateral low back pain with bilateral sciatica] Onset: 12-31-2023 Chronic Other nervous system disorders (1 source) Numbness and tingling sensation of skin; Translations: [Anesthesia of skin] Episodic Other nutritional; endocrine; and metabolic disorders (2 sources) Body mass index 40+ - severely obese; Translations: [Morbid (severe) obesity due to excess calories] 12-20-2023 Chronic Other nutritional; endocrine; and metabolic disorders (1 source) Morbid (severe) obesity due to excess calories; Translations: [Morbid obesity with BMI of 50.0-59.9, adult ([facility])] Onset: 12-31-2023 Chronic Other nutritional; endocrine; and metabolic disorders (1 source) Body mass index (BMI) 50.0-59.9, adult; Translations: [Morbid obesity with BMI of 50.0-59.9, adult (HCC)] Onset: 12-31-2023 Chronic Other screening for suspected conditions (not mental disorders or infectious disease) (1 source) Ultrasonography of abdomen abnormal; Translations: [Abnormal findings on diagnostic imaging of other abdominal regions, including retroperitoneum] 05-08-2024 Episodic Other upper respiratory infections (1 source) Acute upper respiratory infection; Translations: [Acute upper respiratory infection, unspecified] 09-04-2023 Episodic Residual codes; unclassified (1 source) Family history of malignant neoplasm of breast in first degree relative; Translations: [Family history of malignant neoplasm of breast] Episodic Residual codes; unclassified (1 source) Flushing; Translations: [Flushing] Episodic Spondylosis; intervertebral disc disorders; other back problems (20 sources) Chronic low back pain; Translations: [Chronic bilateral low back pain without sciatica] Onset: 12-31-2023 08-08-2023 Episodic Syncope (1 source) Syncope and collapse; Translations: [Syncope and collapse] Onset: 11-14-2022 Episodic Viral infection (2 sources) Oral herpes simplex infection; Translations: [Herpesviral gingivostomatitis and pharyngotonsillitis] Onset: 04-29-2025 04-29-2025 Episodic Past or Other Problems Problem Classification Problem Date Documented Da te Episodic/Chronic Immunizations and screening for infectious disease (19 sources) Patient encounter status; Translations: [Encounter for screening for infections with a predominantly sexual mode of transmission] Onset: 10-10-2018 Resolved: 06-19-2019 Episodic Malposition; malpresentation (11 sources) Unstable lie; Translations: [Maternal care for unstable lie, not applicable or unspecified] Onset: 10-25-2017 Resolved: 10-10-2018 10-10-2018 Episodic Other complications of (11 sources) Maternal obesity complicating , childbirth and the puerperium, antepartum; Translations: [Obesity complicating , third trimester] Onset: 09-27-2017 Resolved: 10-10-2018 10-10-2018 Chronic Other complications of (11 sources) Obesity; Translations: [Obesity complicating , unspecified trimester] Onset: 10-10-2018 Resolved: 06-19-2019 06-19-2019 Chronic Other complications of (11 sources) Urinary tract infection in ; Translations: [Unspecified infection of urinary tract in , unspecified trimester] Onset: 09-27-2017 Resolved: 10-10-2018 10-10-2018 Episodic Other complications of (11 sources) Finding of pattern of ; Translations: [Supervision of other high risk pregnancies, unspecified trimester] Onset: 10-10-2018 Resolved: 06-19-2019 06-19-2019 Episodic Residual codes; unclassified (11 sources) FH: Congenital anomaly; Translations: [Family history of other congenital malformations, deformations and chromosomal abnormalities] Onset: 10-10-2018 Resolved: 06-19-2019 06-19-2019 Episodic Screening and history of mental health and substance abuse codes (20 sources) H/O: depression; Translations: [Personal history of other mental and behavioral disorders] Onset: 10-10-2018 10-10-2018 Episodic Results Test Name Value Interpretation Reference Range Facility [facility] 04-29-2025 CNOV Office Visit (WOUCA) ROBIN MEDINA ([id number]) 1995 F Date Time Provider Department 04/29/25 5:00 PM EPIFANIO LANDY LUGO During your visit today, we recorded the following information about you: Temperature Pulse Respiration Blood pressure 98.6 degrees 96/minute 18/minute 130/82 Weight 141.6 kg Landy Godfrey APRN.PEOPLESO[employer] FUNCTIONAL ANALYST 04/29/2025 6:03 PM Signed URGENT CARE TOY Subjective Robin Medina is a 29 year old female. Patient presents with: Mouth/Lip Problem: Lip sores x 1 week Mouth/Lip Problem Herpes Labialis: - Severe labial herpetic lesions, with new blisters appearing yesterday. - Initial lesion began healing before new blisters appeared. 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 - Previous episodes managed with Abreva, which provided some relief. - Using cold compresses and ibuprofen 600 mg every 4 hours with minimal relief for pain and swelling. - Reports increased frequency of cold sore occurrences with age. Review of Systems Ears/Nose/Mouth/Throa t: (+) lip blisters, (+) lip pain, (+) lip swelling PAST MEDICAL HISTORY Diagnosis Date Asthma (HCC) childhood, no asthma attacks since age 15 Chronic back pain since delivery of first child Chronic hypertension affecting ([facility]) 10/10/2018 Chronic hypertension affecting ([facility]) 10/10/2018 10/10/18 - patient with elevated BP at 8 weeks which is c/w undiagnosed chtn, start 81mg aspirin at 12 weeks - Hector Bauer MD Chronic migraine without aura PMH - PAST MEDICAL HISTORY OF 04/30/2003 [facility] NORMAL depression Renal stones PAST SURGICAL HISTORY Procedure Laterality Date DELIVERY ONLY 11/24/2017 DELIVERY ONLY 05/09/2019 RC/S low transverse REMOVAL GALLBLADDER 07/06/2020 [facility] SALPINGECTOMY COMPLETE/PARTIAL UNI/BI SPX Bilateral 05/09/2019 tubal ligation with filshie clips ALLERGIES Insect Venom MEDICATIONS valACYclovir (VALTREX) 1 gram tablet Take 1 tablet by mouth two times a day for 10 days. naproxen (NAPROSYN) 500 mg tablet Take 1 tablet by mouth two times a day with meals for 7 days. albuterol HFA (PROVENTIL HFA, VENTOLIN HFA) 90 mcg/actuation inhaler Inhale 2 Puffs as instructed every 4 hours as needed for wheezing/shortness of breath. (Patient not taking: Reported on 04/29/2025) omeprazole (PRILOSEC) 20 mg capsule Take 1 capsule by mouth daily before breakfast. 1/2 hr before meal. (Patient not taking: Reported on 04/29/2025) hydrOXYzine pamoate (VISTARIL) 25 mg capsule Take 25 mg by mouth three times daily as needed. (Patient not taking: Reported on 04/29/2025) MULTIVITAMIN ORAL Take by mouth once daily. (Patient not taking: Reported on 04/29/2025) FAMILY HISTORY Problem Relation Age of Onset Breast Cancer Mother now has brain cancer also Ovarian cancer Mother Hypertension Mother Brain Cancer Mother other (heart murmur) Father other (ADD) Father other (PSYCOTIC MOODS) Father Lung Cancer Father Depression Sister other (Other) Brother Half-brother Diabetes Maternal Grandmother Heart Maternal Grandfather Cancer Paternal Grandmother ovarian Heart Paternal Grandfather Diabetes Paternal Grandfather No Known Problems Daughter SOCIAL HISTORY[1] Objective BP 130/82 Pulse 96 Temp 37 ?C (98.6 ?F) (Tympanic) Resp 18 Wt (!) 141.6 kg (312 lb 2.7 oz) LMP 02/25/2024 (Approximate) SpO2 100% BMI 56.72 kg/m? Physical Exam Constitutional: General: She is not in acute distress. Appearance: Normal appearance. She is normal weight. She is not ill-appearing or toxic-appearing. HENT: Head: Normocephalic and atraumatic. Jaw: No trismus, tenderness or swelling. Comments: Vesicular lesion on lower lip No lymphadenopathy Mouth/Throat: Mouth: Oral lesions present. No injury, lacerations or angioedema. Cardiovascular: Pulses: Normal pulses. Pulmonary: Effort: Pulmonary effort is normal. Neurological: Mental Status: She is alert. { 1. Oral herpes (B00.2) - Severe outbreak with new lesions appearing yesterday; prior episodes managed with topical Abreva, but current episode is the worst to date. - No signs of secondary infection on exam; yellowing appearance attributed to inflammatory response of herpetic lesions. - Start valacyclovir 1g PO BID for 7 days refill provided for future episodes. - Advised to take valacyclovir with food. - Educated on the importance of initiating antiviral therapy at the first sign of recurrence (e.g., tingling sensation) for optimal efficacy. - Discussed that antivirals will halt viral replication and prevent new lesions, but healing will still take time. - Advised to continue supportive care with cold compresses and ibuprofen 600 mg every 6 hours as needed for pain and swelling. - Discussed option of naproxen for pa (more content not included)... Normal [facility] Mika 05-08-2024 CNPN Telephone (OBGYWM) ROBIN MEDINA ([id number]) 1995 F Date Time Provider Department 05/08/24 HECTOR BAUER During your visit today, we recorded the following information about you: July Varela, OG 05/08/2024 12:51 PM Signed ----- Message from Hector Bauer MD sent at 05/08/2024 12:47 PM EDT ----- US overall normal. Shows possible adenomyosis. Patient can schedule follow up visit to discuss if she would like. Hector Bauer MD Allergies As of Date: 05/08/2024 Noted Allergy Reaction INSECT VENOM 06/27/2017 4 - Hives Comments: Was treated here for caterpillar exposure resulting in redness, swelling to entire right side Date Reviewed: 03/25/2024 Reviewed by: Hector Bauer MD - Fully Assessed Reason for Visit: Results [95] Prescriptions as of 05/08/2024 - albuterol HFA (PROVENTIL HFA, VENTOLIN HFA) 90 mcg/actuation inhaler Inhale 2 Puffs as instructed every 4 hours as needed for wheezing/shortness of breath. - omeprazole (PRILOSEC) 20 mg capsule Take 1 capsule by mouth daily before breakfast. 1/2 hr before meal. - hydrOXYzine pamoate (VISTARIL) 25 mg capsule Take 25 mg by mouth three times daily as needed. - MULTIVITAMIN ORAL Take by mouth once daily. Problem List As Of Date 05/08/2024 Noted Resolved Obesity complicating , third trimester*09/27/2017 10/10/2018 UTI (urinary tract infection) in , ant*09/27/2017 10/10/2018 Unstable lie of fetus [O32.0XX0] 10/25/2017 10/10/2018 Short interval between pregnancies affecting pr*10/10/2018 06/19/2019 History of delivery, antepartum [O34.2*10/10/2018 06/19/2019 History of depression [Z86.59] 10/10/2018 Obesity in [O99.210] 10/10/2018 06/19/2019 Family history of defects [Z82.79] 10/10/2018 06/19/2019 Patient request for diagnostic testing [Z01.89] 10/10/2018 06/19/2019 control counseling [Z30.09] 10/10/2018 06/19/2019 Chronic hypertension affecting [O10.9*10/10/2018 2023 Well adult exam [Z00.00] 10/14/2019 05/08/2024 Anxiety with depression [F41.8] 10/14/2019 Mild episode of recurrent major depressive diso*10/14/2019 Migraine without aura, intractable, without sta*07/28/2020 Vitamin D deficiency [E55.9] 07/24/2022 Chronic back pain [M54.9, G89.29] Chronic bilateral low back pain with bilateral *01/03/2024 Adenomyosis of the uterus [N80.03] 05/08/2024 Encounter Status:Closed by JULY VARELA on 05/08/24 Normal [facility] [place] 05-08-2024 Indication postcoital bleeding Impression The uterus is anteverted and measures 83 mm x 50 mm x 58 mm. The myometrium is echogenic, heterogeneous but no obvious fibroids are observed. This finding is suggestive of adenomyosis. The avascular endometrium is heterogenous and measures 13.8 mm, however there is no discrete polyp noted. The right ovary measures 39 mm x 17 mm x 14 mm. The left ovary measures 30 mm x 13 mm x 20 mm. There is trace free fluid visualized. Recommendations Ultrasound findings suggestive for adenomyosis. Clinical correlation is recommended. Consider SIS for further evaluation of endometrial cavity if clinically indicated. History Medical History Surgery: section x 2 Surgery: Tubal ligation Menstrual History LMP on 03/30/2024. Contraception: tubal sterilization Method Transabdominal, transvaginal, 3D ultrasound examination, Color Doppler examination. View: Adequate visualization Uterus Uterus: Visualized Uterus position: anteverted Description of uterine malformations: none Myometrium: echogenic, heterogeneous Endometrium: heterogenous Cervix details: cystic lesions identified suggesting superficial Nabothian cysts Uterus length 83 mm Uterus width 58 mm Uterus height 50 mm Uterus Vol 125.9 cm Endometrial thickness, total 13.8 mm Fibroids: No fibroids identified Polyps: No polyps identified Right Ovary Rt ovary: Visualized Rt ovary morphology: premenopausal normal follicular Rt ovary D1 39 mm Rt ovary D2 17 mm Rt ovary D3 14 mm Rt ovary Vol 4.8 cm Rt ovarian cyst(s): No cysts identified Left Ovary Lt ovary: Visualized Lt ovary morphology: premenopausal normal follicular Lt ovary D1 30 mm Lt ovary D2 13 mm Lt ovary D3 20 mm Lt ovary Vol 4.0 cm Lt ovarian cyst(s): No cysts identified Cul de Sac Visualized. free fluid visualized: trace Performed By: Briseyda Dyer RDMS Read By: Brandan Suarez M.D. MATERNAL MEDICINE [facility] [place] 05-06-2024 Radiology Study observation (narrative) [facility] XR Chest PA and Lateralon IMPRESSION: No acute radiographic abnormality. Mechanical Specialist: PSCB Transcribe Date/Time: Sep 04 2023 6:54P Dictated by : FAYE EDWARDS MD This examination was interpreted and the report reviewed and electronically signed by: FAYE EDWARDS MD on Sep 04 2023 6:55PM [facility] DIVISION OF RADIOLOGY * * *Final Report* * * DATE OF EXAM: Sep 04 2023 6:53PM WOX [id number] - XR CHEST 2V FRONTAL/LAT / PROCEDURE REASON: multiple diagnoses * * * * Physician Interpretation * * * * EXAMINATION: CHEST RADIOGRAPH (2 VIEW FRONTAL & LATERAL) CLINICAL HISTORY: URI, acute Acute cough MQ: [id number] EXAM DATE/TIME: 09/04/2023 6:53 PM COMPARISON: No relevant prior studies available. RESULT: Lines, tubes, and devices: None. Lungs and pleura: No consolidation. No lung mass. No pleural effusion. No pneumothorax. Cardiomediastinal silhouette: Normal cardiomediastinal silhouette. Bones and soft tissues: Unremarkable. DIVISION OF RADIOLOGY Provider, [facility] - 09/04/2023 * * *Final Report* * * DATE OF EXAM: Sep 04 2023 6:53PM WOX [id number] - XR CHEST 2V FRONTAL/LAT / PROCEDURE REASON: multiple diagnoses * * * * Physician Interpretation * * * * EXAMINATION: CHEST RADIOGRAPH (2 VIEW FRONTAL & LATERAL) CLINICAL HISTORY: URI, acute Acute cough MQ: XC2_6 EXAM DATE/TIME: 09/04/2023 6:53 PM COMPARISON: No relevant prior studies available. RESULT: Lines, tubes, and devices: None. Lungs and pleura: No consolidation. No lung mass. No pleural effusion. No pneumothorax. Cardiomediastinal silhouette: Normal cardiomediastinal silhouette. Bones and soft tissues: Unremarkable. IMPRESSION IMPRESSION: No acute radiographic abnormality. Mechanical Specialist: MARCELINA Transcribe Date/Time: Sep 04 2023 6:54P Dictated by : FAYE EDWARDS MD This examination was interpreted and the report reviewed and electronically signed by: FAYE EDWARDS MD on Sep 04 2023 6:55PM EST [facility] Radiology Study observation (narrative) [facility] XR Chest PA and LateralOrder ed By: Cc Provider on 09-04-2023 [facility] XR Sacrum and Coccyx 3 Views on 08-10-2023 IMPRESSION: Unremarkable sacrum/coccyx x-ray. Mechanical Specialist: [facility] Transcribe Date/Time: Aug 10 2023 11:28A Dictated by : FAYE EDWARDS MD This examination was interpreted and the report reviewed and electronically signed by: AFYE EDWARDS MD on Aug 10 2023 11:58AM [facility] DIVISION OF RADIOLOGY * * *Final Report* * * DATE OF EXAM: Aug 08 2023 4:27PM WOX [id number] - XR SACRUM/COCCYX 3V AP/LAT / PROCEDURE REASON: multiple diagnoses * * * * Physician Interpretation * * * * EXAM TITLE: XR SACRUM/COCCYX 3V AP/LAT EXAM DATE/TIME: 08/08/2023 4:27 PM COMPARISON: None. CLINICAL INDICATION/HISTORY: Low back pain TECHNIQUE: AP and lateral views of the sacrum/coccyx are presented. FINDINGS: No acute fracture seen the sacrum. No coccyx subluxation. The visualized other pelvic bones are intact. Others: There are tubular ligation surgical clips in the pelvis. DIVISION OF RADIOLOGY Provider, [facility] - 08/10/2023 * * *Final Report* * * DATE OF EXAM: Aug 08 2023 4:27PM WOX 5246 - XR SACRUM/COCCYX 3V AP/LAT / PROCEDURE REASON: multiple diagnoses * * * * Physician Interpretation * * * * EXAM TITLE: XR SACRUM/COCCYX 3V AP/LAT EXAM DATE/TIME: 08/08/2023 4:27 PM COMPARISON: None. CLINICAL INDICATION/HISTORY: Low back pain TECHNIQUE: AP and lateral views of the sacrum/coccyx are presented. FINDINGS: No acute fracture seen the sacrum. No coccyx subluxation. The visualized other pelvic bones are intact. Others: There are tubular ligation surgical clips in the pelvis. IMPRESSION IMPRESSION: Unremarkable sacrum/coccyx x-ray. Mechanical Specialist: MARCELINA Transcribe Date/Time: Aug 10 2023 11:28A Dictated by : FAYE EDWARDS MD This examination was interpreted and the report reviewed and electronically signed by: FAYE EDWARDS MD on Aug 10 2023 11:58AM EST [facility] No Panel Informationon 08-08 Radiology Study observation (narrative) [facility] XR LUMBAR GENERAL 3V AP/LAT/ L5-S1on 08-08-2023 [facility] XR Lumbar spine 3 Viewson IMPRESSION: Lumbar spine mild degenerative changes as described above. Mechanical Specialist: MARCELINA Transcribe Date/Time: Aug 08 2023 4:27P Dictated by : FAYE EDWARDS MD This examination was interpreted and the report reviewed and electronically signed by: FAYE EDWARDS MD on Aug 08 2023 4:29PM [facility] DIVISION OF RADIOLOGY * * *Final Report* * * DATE OF EXAM: Aug 08 2023 4:27PM WOX [id number] - XR LUMBAR 3V AP/LAT/L5-S1 / PROCEDURE REASON: multiple diagnoses * * * * Physician Interpretation * * * * EXAM TITLE: XR LUMBAR 3V AP/LAT/L5-S1 EXAM DATE/TIME: 08/08/2023 4:27 PM COMPARISON: None. CLINICAL INDICATION/HISTORY: Low back pain. TECHNIQUE: AP, lateral and cone down lateral views of the lumbar spine are presented. FINDINGS: There are five xah-azv-bwmvpnr lumbar vertebrae. No fracture or subluxations are noted. Questionable L3-4 mild disc space narrowing. A Schmorl's node seen in L3 vertebral body. There is minimal osteophyte formation. Others: There are a few surgical clips. DIVISION OF RADIOLOGY [facility] * * *Final Report* * * DATE OF EXAM: Aug 08 2023 4:27PM WOX [id number] - XR LUMBAR 3V AP/LAT/L5-S1 / PROCEDURE REASON: multiple diagnoses * * * * Physician Interpretation * * * * EXAM TITLE: XR LUMBAR 3V AP/LAT/L5-S1 EXAM DATE/TIME: 08/08/2023 4:27 PM COMPARISON: None. CLINICAL INDICATION/HISTORY: Low back pain. TECHNIQUE: AP, lateral and cone down lateral views of the lumbar spine are presented. FINDINGS: There are five ond-dhq-dzcfsfi lumbar vertebrae. No fracture or subluxations are noted. Questionable L3-4 mild disc space narrowing. A Schmorl's node seen in L3 vertebral body. There is minimal osteophyte formation. Others: There are a few surgical clips. IMPRESSION IMPRESSION: Lumbar spine mild degenerative changes as described above. Mechanical Specialist: MARCELINA Transcribe Date/Time: Aug 08 2023 4:27P Dictated by : FAYE EDWARDS MD This examination was interpreted and the report reviewed and electronically signed by: FAYE EDWARDS MD on Aug 08 2023 4:29PM [facility] XR Lumbar spine 3 ViewsOrder ed By: Ccf Provider on 08-08-2023 [facility] Tilt Tableon 12-05-2022 Tilt Table [facility] [place] [address] 12/05/221708 MR#: [id number] Acct: [id number] Name: ROBIN MEDINA Rep #: [id number] : 1995 27 From: Marco Rasmussen MD Attending Dr: Dr. Marco Rasmussen MD Status: REG C LI Ordering Dr: Date: 12/05/22 Location: [facility] Sex: F C Admitted: Staff Staff: Montserrat Lao and Nevaeh Garsia Summary Pre Test Resting HR: 88 Pre Test Resting BP: 151/89 Minimum Test HR: 76 Maximum Test HR: 100 Minimum Test BP: 136/61 Maximum Test BP: 152/89 Physician Tilt Table Report Patient's Physicians Primary Care Physician: Alma Delia Chaidez Grid Trimmer: Marco Rasmussen Indications/Diagnosis : Possible stromal orthostatic tachycardia syndrome Procedure Comments: The patient was brought to the noninvasive lab in the postop septic nonsedated state. Initial EKG demonstrated normal sinus rhythm with no acute changes heart rate was noted to be 88 bpm with a resting blood pressure 150/89 mmHg. The patient was then placed in the 70 degree head upright tilt position for 20 minutes. Continuous EKG monitoring vitals were obtained. Patient noted complaints of dizziness with no appreciable change in heart rate suggestive of any hemodynamic compromise. Patient complained of dizziness and headache. The patient was then put back in the recovery position and vitals measured. No sublingual nitroglycerin was administered. Summary: Negative tilt table test with no evidence of postural orthostatic tachycardia syndrome noted 12/05/221712 Date Marco Rasmussen MD CC: DAO Chaidez; Dr. Marco Rasmussen MD Date Dictated: 12/05/221708 Date Transcribed: 12/05/221708 Mechanical Specialist: [place] Signed Normal [place] Abdomen/Pelvis without Conto n 11-05-2022 Abdomen/Pelvis without Cont [facility] Imaging Services [address] [place] [address] Abdomen/Pelvis without Cont MR#: [id number] Acct: [id number] Name: ROBIN MEDINA Rep #: [id number] : 1995 F 27 From: Nabil iM MD PCP: DAO Lutz Status: REG ER Study: Abdomen/Pelvis without Cont Date of Exam: 10/18 06/09 Exam# [id number] Ordering Dr: Panfilo Chin DO EXAM: CT ABDOMEN AND PELVIS WITHOUT INTRAVENOUS CONTRAST CLINICAL INDICATION: Left flank pain TECHNIQUE: Helically acquired images were obtained of the abdomen and pelvis without intravenous contrast. This CT exam was performed using one or more of the following dose reduction techniques: automated exposure control, adjustment of the mA and/or kV according to patient size, and/or use of iterative reconstruction technique. This report was created using [employer] report generation technology. COMPARISON: None. FINDINGS: LOWER THORAX: Unremarkable. Lung bases are clear. No cardiomegaly. No significant pericardial effusion. ABDOMEN: LIVER: Unremarkable. Homogeneous. GALLBLADDER AND BILE DUCTS: Surgical clips from cholecystectomy. No intra- or extrahepatic biliary ductal dilation. PANCREAS: Unremarkable. No focal cystic mass. SPLEEN: Unremarkable. Normal size without focal cystic or solid mass. ADRENALS: Unremarkable. No nodules. KIDNEYS AND URETERS: There is mild left-sided hydronephrosis and hydroureter there is a 5 mm stone at the left UVJ. Normal renal size and position. STOMACH AND BOWEL: Unremarkable. No stomach or bowel distention. No focal inflammatory change. PELVIS: APPENDIX: No evidence of acute appendicitis. BLADDER: Unremarkable. REPRODUCTIVE: There are bilateral tubal ligation clips. ABDOMEN and PELVIS: INTRAPERITONEAL SPACE: Unremarkable. No ascites or other fluid collection. No free air. BONES/JOINTS: Unremarkable. No suspicious lytic or blastic abnormality. SOFT TISSUES: Unremarkable. No discrete abdominal or pelvic wall hernia. VASCULATURE: Unremarkable. Abdominal aorta is non-dilated. LYMPH NODES: Unremarkable. No enlarged lymph nodes. CT/Abdomen/Pelvis without Cont IMPRESSION: Obstruction of the left collecting system due to a 5 mm stone at the left UVJ. There is left-sided hydronephrosis and hydroureter. Electronically Signed: Nabil Mi MD at 17:22 EST , CC: DAO Chaidez; Dr. Panfilo Chin, DO Mechanical Specialist: Signed Normal [place] Absolute lymphocyte countOrd ered By: Dr. Chin on 11-05-2022 Lymphocytes Auto (Unsp spec) [#/Vol] 4.09 10*3/uL 0.83-4.51 [place] Basic Metabolic Profile (BMP )on 11-05-2022 BUN/CRE 24.6 RATIO High 10-20 [place] Comment on above: Performed By: #### L 100.0100, L500.2500 #### [facility] [address] [place], [address] CA,Total 9.0 mg/dL Normal 8.5-10.1 [place] Comment on above: Performed By: #### L 100.0100, L500.2500 #### [facility] [address] [place], [address] Chloride [Moles/Vol] 109 mmol/L High 98-107 [facility] Comment on above: Performed By: #### L 100.0100, L500.2500 #### [facility] [address] [place], [address] CO2 [Moles/Vol] 23.0 mmol/L Normal 21.0-32.0 [place] Comment on above: Performed By: #### L 100.0100, L500.2500 #### [facility] [address] [place], [address] Creatinine [Mass/Vol] 0.73 mg/dL Normal 0.55-1.02 [facility] Comment on above: Result Comment: The validity of the calculated GFR GFRAA in patients over 70 years has not been determined. Clinical correlation is essential. Performed By: #### L 100.0100, L500.2500 #### [facility] [address] [place], [address] ECRCL 93.17 ml/min Normal [place] Comment on above: Performed By: #### L 100.0100, L500.2500 #### [facility] [address] [place], [address] EST GFR - AA 124 mL/min Normal >60 [place] Comment on above: Result Comment: Afri can Lithuanian GFR Calc Performed By: #### L 100.0100, L500.2500 #### [facility] [address] [place], [address] GAP 10 Normal 5-15 [place] Comment on above: Performed By: #### L 100.0100, L500.2500 #### [facility] [address] [place], [address] GFR/1.73 sq M.predicted among non-blacks MDRD (S/P/Bld) [Vol rate/Area] 103 mL/min/{1.73_m2} Normal >60 [place] Comment on above: Result Comment: Non- GFR Calc Performed By: #### L 100.0100, L500.2500 #### [facility] [address] [place], [address] Glucose [Mass/Vol] 105 mg/dL Normal 74-106 [facility] Comment on above: Result Comment: Fast ing Glucose result from 100 to 125 mg/dL suggests IMPAIRED HOMEOSTASIS per A.D.A. criteria. Performed By: #### L 100.0100, L500.2500 #### [facility] [address] [place], [address] Potassium [Moles/Vol] 3.5 mmol/L Normal 3.5-5.1 [facility] Comment on above: Performed By: #### L 100.0100, L500.2500 #### [facility] [address] [place], [address] Sodium [Moles/Vol] 142 mmol/L Normal 136-145 [facility] Comment on above: Performed By: #### L 100.0100, L500.2500 #### [facility] [address] [place], [address] Urea nitrogen [Mass/Vol] 18 mg/dL Normal 7-18 [place] Comment on above: Performed By: #### L 100.0100, L500.2500 #### [facility] [address] [place], [address] Basophil percentageOrdered B y: Dr. Chin on 11-05-2022 Basophil percentage 0-5 SEEN /hpf 0-5 [facility] Basophils/100 WBC (Bld) 0.4 % 0-1 [facility] Chloride [Moles/Vol] 109 mmol/L 98-107 [facility] Eosinophils/100 WBC (Bld) 1.8 % 0-5 [place] Glucose [Mass/Vol] 105 mg/dL 74-106 [facility] Comment on above: Fasting Glucose resu lt from 100 to 125 mg/dL suggests IMPAIRED HOMEOSTASIS per A.D.A. criteria. Neutrophils (Bld) [#/Vol] 8.8 10*3/uL 2.0-7.7 [place] Neutrophils/100 WBC (Bld) 62.2 % 47-70 [place] Potassium [Moles/Vol] 3.5 mmol/L 3.5-5.1 [facility] Sodium [Moles/Vol] 142 mmol/L 136-145 [facility] WBC (Bld) [#/Vol] 14.1 10*3/uL 4.4-11.0 [facility] Bilirubin Test strip Ql (U)O rdered By: Dr. Chin on 11-05-2022 Bilirubin Ql (U) Negative Negative [place] Blood erythrocytes count (nu mber/volume)Ordered By: Dr. Chin on 11-05-2022 RBC (Bld) [#/Vol] 4.94 10*6/uL 4.2-5.4 [facility] Blood hemoglobin measurement (mass/volume)Ordered By: Dr. Chin on 11-05-2022 Hemoglobin (Bld) [Mass/Vol] 13.8 g/dL 12.0-15.0 [place] Blood lymphocytes/100 leukoc ytesOrdered By: Dr. Chin on 11-05-2022 Lymphocytes/100 WBC (Bld) 29.0 % 19-41 [place] Blood monocytes/100 leukocyt esOrdered By: Dr. Chin on 11-05-2022 Monocytes/100 WBC (Bld) 6.2 % 0-10 [facility] Blood platelet mean volumeOr dered By: Dr. Chin on 11-05-2022 Platelet mean volume (Bld) [Entitic vol] 9.7 fL 6.2-12.0 [place] CBC W/Diff, Automatedon 10-18 Absolute Lymph 4.09 X10 3/uL Normal 0.83-4.51 [place] Comment on above: Performed By: #### L 100.0100, L500.2500 #### [facility] [address] [place], [address] Absolute Neut 8.8 X10 3/uL High 2.0-7.7 [place] Comment on above: Performed By: #### L 100.0100, L500.2500 #### [facility] [address] [place], [address] Basophils/100 WBC (Bld) 0.4 % Normal 0-1 [facility] Comment on above: Performed By: #### L 100.0100, L500.2500 #### [facility] [address] [place], [address] Eosinophils/100 WBC (Bld) 1.8 % Normal 0-5 [place] Comment on above: Performed By: #### L 100.0100, L500.2500 #### [facility] [address] [place], [address] Erythrocyte distribution width (RBC) [Ratio] 12.9 % Normal 11.6-14.6 [place] Comment on above: Performed By: #### L 100.0100, L500.2500 #### [facility] [address] [place], [address] Hematocrit (Bld) [Volume fraction] 41.6 % Normal 37-47 [place] Comment on above: Performed By: #### L 100.0100, L500.2500 #### [facility] [address] [place], [address] Hemoglobin (Bld) [Mass/Vol] 13.8 g/dL Normal 12.0-15.0 [place] Comment on above: Performed By: #### L 100.0100, L500.2500 #### [facility] [address] [place], [address] IG% 0.400 Normal 0.0-0.9 [place] Comment on above: Result Comment: IG% - Immature Granulocytes (promyelocytes, myelocytes and metamyelocytes) > 1% indicates that a LEFT SHIFT is Present. Performed By: #### L 100.0100, L500.2500 #### [facility] [address] [place], [address] Lymphocytes/100 WBC (Bld) 29.0 % Normal 19-41 [place] Comment on above: Performed By: #### L 100.0100, L500.2500 #### [facility] [address] [place], [address] MCH (RBC) [Entitic mass] 27.9 pg Normal 27.0-32.0 [place] Comment on above: Performed By: #### L 100.0100, L500.2500 #### [facility] [address] [place], [address] MCHC (RBC) [Mass/Vol] 33.2 g/dL Normal 32-36 [facility] Comment on above: Performed By: #### L 100.0100, L500.2500 #### [facility] [address] [place], [address] MCV (RBC) [Entitic vol] 84.2 fL Normal 81-99 [facility] Comment on above: Performed By: #### L 100.0100, L500.2500 #### [facility] [address] [place], [address] Monocytes/100 WBC (Bld) 6.2 % Normal 0-10 [facility] Comment on above: Performed By: #### L 100.0100, L500.2500 #### [facility] [address] [place], [address] Neutrophils/100 WBC (Bld) 62.2 % Normal 47-70 [place] Comment on above: Performed By: #### L 100.0100, L500.2500 #### [facility] [address] [place], [address] Nucleated RBC (Bld) [#/Vol] 0 10*3/uL Normal 0-5 [place] Comment on above: Performed By: #### L 100.0100, L500.2500 #### [facility] [address] [place], [address] Platelet mean volume (Bld) [Entitic vol] 9.7 fL Normal 6.2-12.0 [place] Comment on above: Performed By: #### L 100.0100, L500.2500 #### [facility] [address] [place], [address] Platelets (Bld) [#/Vol] 334 10*3/uL Normal 150-450 [place] Comment on above: Performed By: #### L 100.0100, L500.2500 #### [facility] [address] [place], [address] RBC (Bld) [#/Vol] 4.94 10*6/uL Normal 4.2-5.4 [facility] Comment on above: Performed By: #### L 100.0100, L500.2500 #### [facility] [address] [place], [address] RDW SD 39.3 fl Normal 35.1-43.9 [place] Comment on above: Performed By: #### L 100.0100, L500.2500 #### [facility] [address] [place], [address] WBC (Bld) [#/Vol] 14.1 10*3/uL High 4.4-11.0 [facility] Comment on above: Performed By: #### L 100.0100, L500.2500 #### [facility] [address] [place], [address] Determination of erythrocyte mean corpuscular volume (MCV)Ordered By: Dr. Chin on 11-05-2022 MCV (RBC) [Entitic vol] 84.2 fL 81-99 [facility] Emergency Department Summary on 11-05-2022 Emergency Department Summary [facility] Medical Records Department [address] [place] [address] Emergency Department Summary 11/05/22 MR#: [id number] Acct: [id number] Name: ROBIN MEDINA Rep #: [id number] : 1995 27 From: Panfilo Chin DO PCP: DAO Lutz Status:DEP ER Location: ED HPI History of Present Illness Chief Complaint: Flank Pain Informant: patient Onset/Context/Timing Onset: Today and Hours (1) Context: Sudden Onset Timing: Continuous Quality: Stabbing Location: Left flank Worsened by: Nothing Relieved by: Nothing Narrative Narrative: Patient presents with left flank pain that began approximately 1 hour prior to arrival. Patient states it began rather suddenly after she was done going to the bathroom. Patient states she stood up and noted the pain in her left flank. Patient describes the pain as stabbing. Patient states it has been constant. Patient states nothing makes her pain worse and nothing makes it better. Patient states she is unable to find a position of comfort. Patient admits to some subjective fevers and chills. Patient admits to some urinary frequency. Patient admits to some nausea but denies any vomiting. PFSH PFSH Medical History Anxiety and depression Asthma Chronic back pain Chronic hypertension affecting Chronic migraine without aura Palpitations depression Home Medications fluoxetine 10 mg capsule (Prozac) 10 mg PO DAILY 08/25/22 [History Last Taken Unknown] hydrocodone-acetamino phen 5-325mg 5mg-325mg 1 tab PO Q6H PRN PRN Pain 3 days #10 TABLETS 11/05/22 [Rx Last Taken Unknown] Allergy/AdvReac Type Severity Reaction Status Date / Time insect venom Allergy Hives Verified 10/25/22 15:00 Family History Mother Cancer Breast, Ovarian, Brain Hypertension Diabetes Father Heart disease Murmur Cancer Lung Grandmother Cancer Ovarian Grandfather Heart disease Diabetes Grandfather Heart disease Surgical History delivery delivered History of cholecystectomy Social History Smoking Status: Never smoker alcohol intake: current alcohol intake frequency: other details: rare substance use type: does not use caffeine: Yes (once every 2-3 days) Type: carbonated beverages, coffee and tea ROS ROS ED Constitutional Constitutional ED: Reports chills, fever(s) and subjective Eyes Eyes: Denies blurry vision or change in vision ENT ENT ED: Denies rhinorrhea or sore throat Cardiovascular Cardiovascular: Denies chest pain or palpitations Respiratory/Chest Respiratory/Chest: Denies cough or dyspnea Gastrointestinal Gastrointestinal: Reports nausea; Denies vomiting Genitourinary Genitourinary ED: Reports urinary frequency; Denies dysuria or hematuria Musculoskeletal Musculoskeletal: Reports back pain; Denies neck pain Integumentary Denies abscess or rash Neurologic Neurologic: Reports headache(s); Denies weakness Allergic/Immunologic Allergic/Immunologic ED: Denies mouth swelling or urticaria EXAM Physical Exam Const Vital Signs: 11/05/22 15:21 Temperature 96.0 F L Temperature Source Temporal Pulse Rate 93 Respiratory Rate 16 Blood Pressure 170/130 H Blood Pressure Mean 143 Pulse Ox 97 Oxygen Delivery Method Room Air Positive well nourished, well developed and obese General Appearance ED: well developed and NAD Nutritional Appearance: obese HEENT Reports moist mucous membranes Neck supple and no JVD Resp normal respiratory effort and clear to auscultation bilaterally Cardio regular rate, regular rhythm and no murmurs GI normal to inspection, nondistended, normoactive bowel sounds Palpation: soft and tender LLQ and LUQ; Negative for guarding or rebound tenderness present Back/Spine General Back: CVA tenderness left Extremity normal to inspection General Extremety ED: Negative for edema or tenderness General Extremity: Negative for edema Neuro oriented x3, CN's II-XII intact bilaterally and no sensory deficits noted Sensorium / Orientation: alert Motor Exam: strength 5/5 throughout Psych mental status grossly normal Skin no rashes or lesions noted MDM MDM MDM Narrative Medical decision making narrative: Differential diagnosis includes pyelonephritis, kidney stone, urinary tract infection, and gastroenteritis. CT scan of the abdomen pelvis will be obtained to assess for ureteral calculus and pyelonephritis. Urinalysis will be obtained to assess for urinary tract infection and hematuria. CBC will be obtained to assess for leukocytosis and anemia. Basic metabolic profile w (more content not included)... Normal [place] Hematocrit Auto (Bld) [Volum e fraction]Ordered By: Dr. Chin on 11-05-2022 Hematocrit (Bld) [Volume fraction] 41.6 % 37-47 [place] Ketones Test strip Ql (U)Ord ered By: Dr. Chin on 11-05-2022 Ketones Ql (U) Negative Negative [facility] - Chemistry and C hemistry - challengeOrdered By: Dr. Chin on 11-05-2022 HCG ( test) Ql (U) Negative [place] Comment on above: Very dilute urine sp ecimens, as indicated by a low specificgravity, may not contain public relations representative levels of hCG. If is still suspected, a first morning urinespecimen should be collected 48 hours later and tested. CO2 [Moles/Vol] 23.0 mmol/L 21.0-32.0 [place] Urea nitrogen/Creatinine [Mass ratio] 24.6 mg/mg 10-20 [facility] - Hematology and Cell countsOrdered By: Dr. Chin on 11-05-2022 Erythrocyte distribution width (RBC) [Entitic vol] 39.3 fL 35.1-43.9 [place] Erythrocyte distribution width (RBC) [Ratio] 12.9 % 11.6-14.6 [place] Immature granulocytes/100 WBC (Bld) 0.400 % 0.0-0.9 [place] Comment on above: IG% - Immature Granu locytes (promyelocytes, myelocytes and metamyelocytes) > 1% indicates that a LEFT SHIFT is Present. MCH (RBC) [Entitic mass] 27.9 pg 27.0-32.0 [place] Nucleated RBC/100 WBC (Bld) [Ratio] 0 % 0-5 [place] MCHC Auto (RBC) [Mass/Vol]Or dered By: Dr. Chin on 11-05-2022 MCHC (RBC) [Mass/Vol] 33.2 g/dL 32-36 [facility] Mucus LM Ql (Urine sed)Order ed By: Dr. Chin on 11-05-2022 Mucus Ql (Urine sed) 0 SEEN /hpf [facility] Nitrite Test strip Ql (U)Ord ered By: Dr. Chin on 11-05-2022 Nitrite Ql (U) Negative Negative [place] No Panel InformationOrdered By: Dr. Chin on 11-05-2022 Estimated Creatinine Clearance Calc 93.17 ml/min [place] Estimated GFR (MDRD) Amer 124 mL/min >60 [place] Comment on above: GFR Calc Estimated GFR (MDRD) Non-Af Amer 103 mL/min >60 [place] Comment on above: Non- GFR Calc Platelets bldOrdered By: Dr. Chin on 11-05-2022 Platelets (Bld) [#/Vol] 334 10*3/uL 150-450 [place] ,Urineon 11-05-2022 Beta HCG ( test) Ql (U) Negative Normal [place] Comment on above: Result Comment: Very dilute urine specimens, as indicated by a low specific gravity, may not contain public relations representative levels of hCG. If is still suspected, a first morning urine specimen should be collected 48 hours later and tested. Performed By: #### L 400.7600 #### [facility] [address] [place], [place], [id number] Protein Test strip Ql (U)Ord ered By: Dr. Chin on 11-05-2022 Protein Ql (U) Negative Negative [place] Serum or plasma calcium alisia urement (mass/volume)Ordered By: Dr. Chin on 11-05-2022 Calcium [Mass/Vol] 9.0 mg/dL 8.5-10.1 [facility] Serum or plasma creatinine m easurement (mass/volume)Ordered By: Dr. Chin on 11-05-2022 Creatinine [Mass/Vol] 0.73 mg/dL 0.55-1.02 [facility] Comment on above: The validity of the calculated GFR & GFRAA in patients over 70 years has not been determined. Clinical correlation is essential. Serum or plasma urea nitroge n measurement (mass/volume)Ordered By: Dr. Chin on 11-05-2022 Urea nitrogen [Mass/Vol] 18 mg/dL 7-18 [place] Squamous epithelial cells de tection in urine sediment by light microscopyOrdered By: Dr. Chin on 11-05-2022 Epithelial cells.squamous LM Ql (Urine sed) 0-5 SEEN /hpf 5-10 [place] Thin prep Papanicolaou smear with manual screeningOrdered By: Dr. Chin on 11-05-2022 Thin prep Papanicolaou smear with manual screening 10 5-15 [place] Urinalysis, Completeon 11-05 BACTERIA 2+ /hpf Normal None Seen [place] Comment on above: Order Comment: CLEAN CATCH Performed By: #### L 400.0001 #### [facility] [address] [place], [address] EPI,SQUAMOUS 0-5 SEEN Normal 5-10 [place] Comment on above: Order Comment: CLEAN CATCH Performed By: #### L 400.0001 #### [facility] [address] [place], [address] RBC 0-5 SEEN Normal 0-5 [place] Comment on above: Order Comment: CLEAN CATCH Performed By: #### L 400.0001 #### [facility] [address] [place], [address] WBC 0-5 SEEN Normal 0-5 [place] Comment on above: Order Comment: CLEAN CATCH Performed By: #### L 400.0001 #### [facility] [address] [place], [address] Mucus Ql (Urine sed) 0 SEEN Normal [facility] Comment on above: Order Comment: CLEAN CATCH Performed By: #### L 400.0001 #### [facility] [address] [place], [address] Urine blood detectionOrdered By: Dr. Chin on 11-05-2022 RBC Ql (U) 10 /ul Negative [place] RBC Ql (U) 0-5 SEEN /hpf 0-5 [place] Urine clarityOrdered By: Dr. Chin on 11-05-2022 Clarity (U) Clear Clear [place] Urine color determinationOrd ered By: Dr. Chin on 11-05-2022 Color (U) Yellow Yellow [place] Urine glucose detectionOrder ed By: Dr. Chin on 11-05-2022 Glucose Ql (U) Normal mg/dl Normal [place] Urine leukocyte esterase det ection by dipstickOrdered By: Dr. Chin on 11-05-2022 Leukocyte esterase Test strip Ql (U) Negative Negative [place] Urine pHOrdered By: Dr. Jim lynch on 11-05-2022 pH (U) 7.0 [pH] 5.0 - 8.0 [place] Urine sediment bacteria coun t by microscopy (number/high power field)Ordered By: Dr. Chin on 11-05-2022 Bacteria LM.HPF (Urine sed) [#/Area] 2 /[HPF] None Seen [place] Urine specific gravity measu rementOrdered By: Dr. Chin on 11-05-2022 Specific gravity (U) [Rel density] 1.015 1.002-1.030 [place] Urobilinogen Auto test strip Ql (U)Ordered By: Dr. Chin on 11-05-2022 Urobilinogen Ql (U) Normal mg/dl Normal [facility] Echo Completeon 11-02-2022 Echo Complete [facility] [address] [place] [address] Echo Complete 11/02/22 1419 MR#: [id number] Acct: [id number] Name: ROBIN MEDINA Rep #: [id number] : 1995 27 From: Marco Rasmussen MD Attending Dr: Dr. Marco Rasmussen MD Status: JOSEPH QUIROGA Ordering Dr: Marco Rasmussen MD Date: 11/02/22 Location: [facility] Sex: F C Admitted: Reason For Study: SYNCOPE Procedure This was a 2D Doppler, Color Flow transthoracic echocardiogram. Exam performed in department. Left Ventricle Normal LV size. Left ventricular systolic function is normal. The estimated ejection fraction is 60 %. Normal diastology for age. No regional wall motion abnormalities noted. Right Ventricle Normal RV size. Normal systolic function. Atria Normal left atrium. Normal right atrium. Mitral Valve Normal mitral valve. Tricuspid Valve Normal tricuspid valve. Mild tricuspid valve insufficiency. Pulmonary artery systolic pressure is 25 mmHg. Aortic Valve Normal aortic valve. Trisinus/trileaflet aortic valve. Pulmonic Valve Normal pulmonic valve. Great Vessels Normal aortic root. The pulmonary artery is normal size. Normal inferior vena cava. Pericardium/Pleural No pericardial effusion. MMode/2D Measurements Calculations LVIDd: 5.3 cm IVSd: 0.79 cm Ao root diam: 2.5 cm LVIDs: 3.4 cm LVPWd: 0.70 cm FS: 36.2 % LAV(MOD-sp4): 62.4 ml LVAd ap4: 35.4 cm2 SV(MOD-sp4): 84.9 ml LVLd ap4: 8.4 cm EDV(MOD-sp4): 121.6 ml EDV(sp4-el): 127.5 ml LVAs ap4: 17.4 cm2 LVLs ap4: 6.8 cm ESV(MOD-sp4): 36.6 ml ESV(sp4-el): 37.7 ml EF(MOD-sp4): 69.9 % EF(sp4-el): 70.4 % SV(sp4-el): 89.7 ml LA A4 area: 21.5 cm2 LA dimension(2D): 3.6 cm RA A4 area: 14.2 cm2 Time Measurements MV dec time: 0.11 sec Doppler Measurements Calculations MV E max dixon: 88.6 cm/sec Lat Peak E' Dixon: 15.6 cm/sec Med Peak E' Dixon: 13.0 cm/sec MV A max dixon: 66.3 cm/sec E/E' lat: 5.7 E/E' med: 6.8 MV E/A: 1.3 MV V2 max: 116.6 cm/sec Ao V2 max: 158.3 cm/sec MV max P.5 mmHg MV dec slope: 786.4 cm/sec2 Ao max P.1 mmHg MV V2 mean: 75.8 cm/sec Ao V2 mean: 123.1 cm/sec MV mean P.6 mmHg Ao mean P.6 mmHg MV V2 VTI: 28.9 cm Ao V2 VTI: 31.4 cm AV (velocity ratio): 0.73 LV V1 max: 114.7 cm/sec PA V2 max: 128.9 cm/sec TR max dixon: 238.8 cm/sec LV V1 max P.3 mmHg PA V2 mean: 92.6 cm/sec TR max P.8 mmHg LV V1 mean P.3 mmHg LV V1 mean: 86.2 cm/sec LV V1 VTI: 23.0 cm ECHO/Echo Complete Interpretation Summary Normal LV size. Left ventricular systolic function is normal. The estimated ejection fraction is 60 %. Pulmonary artery systolic pressure is 25 mmHg. Ordering Physician: Marco Rasmussen Referring Physician: ALMA DELIA CHAIDEZ Performed By: Patsy Mobley RCS 11/03/22 0855 Date Marco Rasmussen MD CC: DAO Chaidez; Dr. Marco Rasmussen MD Date Dictated: 11/02/22 1419 Date Transcribed: 11/03/22 08 Mechanical Specialist: Signed Normal [place] 12 Lead EKG performed by [facility] on 10-25-2022 12 Lead EKG performed by [facility] [address] [place] [address] 12 Lead EKG performed by [facility] 10/25/227 MR#: [id number] Acct: [id number] Name: DINORAHROBIN FERNÁNDEZ N Rep #: [id number] : 1995 27 From: Marco Rasmussen MD Attending Dr: Dr. Marco Rasmussen MD Status: DEP A MB Ordering Dr: Marco Rasmussen MD Date: 10/25/22 Location: [place] Sex: F C Admitted: BMS/12 Lead EKG performed by [facility] ECG Report Interpretation -----Sinus Rhythm -Short [place] syndrome Alyssa = 112-RSR(V1) -probably normal for age. BORDERLINE RHYTHMElectronically signed on 10/26/2022 at 09:34 by Marco Rasmussenwood Software Version 8610 10/26/2240 Date Marco Rasmussen MD CC: No Primary Care Physician Date Dictated: 10/25/221456 Date Transcribed: 10/25/221456 Mechanical Specialist: [place] Signed Normal [place] [facility] Visit Reporton Cardiology Visit Report [facility] [address] [place] [address] OFFICE VISIT Date of Service: 10/25/22 MR#: [id number] Acct: [id number] Name: ROBIN MEDINA N Rep #: [id number] : 1995 Provider: Dr. Marco Rasmussen MD Age/Sex: 27/F Location: [facility] Status: Signed HPI HPI History of Present Illness Details: 27-year-old lady with a history of anxiety disorder who presents with palpitations dizziness lightheadedness and was talking to her primary physician about this and was wondering whether she had a diagnosis of POTS. She denies any chest pain or paroxysmal nocturnal dyspnea or pedal edema she has been compliant with her medications and was asked to see us. She does not have a previous history of hypertension. She says that she gets these palpitations almost daily when she is walking and feels them as a thumping in her chest. His sleep buttons have also been inconsistent with neuropathy in her fingertips. She also gets weekly chest pressure. She feels that her heart races when she gets up quickly from the seated position. Her physical exam demonstrates clear lung welsh regular rate and rhythm and no pedal edema and her electrocardiogram demonstrates sinus rhythm with a rate of 77 bpm. Intake Vital Signs 10/25/22 10:00 10/25/22 14:57 Height 5 ft 2 in 5 ft 2 in Weight: 273 lb BMI 49.9 BP 146/88 H Blood Pressure Location Lt brachial Position Sitting Respiration 16 Pulse 85 Pulse Source Monitor Intake Visit Reasons: Palpitations Tube Carrier Required: No Accompanied by: None Is patient in pain?: No Allergies insect venom Allergy (Verified 10/25/22 15:00) Hives Medications ibuprofen 600 mg tablet 600 mg PO Q6H PRN PRN Mild Pain (1-310) 05/11/19 [Rx Confirmed 10/25/22] fluoxetine 10 mg capsule (Prozac) 10 mg PO DAILY 08/25/22 [History Confirmed 10/25/22] melatonin 3 mg tablet 3 mg PO HS PRN 08/25/22 [History Confirmed 10/25/22] rizatriptan 10 mg tablet (Maxalt) See Rx Instructions PO .COMPLEX 08/25/22 [History Confirmed 10/25/22] PFSH Medical History Anxiety and depression Asthma Chronic back pain Chronic hypertension affecting Chronic migraine without aura Palpitations depression Surgical History delivery delivered History of cholecystectomy Family History Mother Cancer Breast, Ovarian, Brain Hypertension Diabetes Father Heart disease Murmur Cancer Lung Grandmother Cancer Ovarian Grandfather Heart disease Diabetes Grandfather Heart disease Social History Smoking Status: Never smoker alcohol intake: current alcohol intake frequency: other details: rare substance use type: does not use caffeine: Yes (once every 2-3 days) Type: carbonated beverages, coffee and tea ROS Const Const: Positive for fatigue (5+ years) and difficulty sleeping (meds ineffective); Negative for weakness, headache(s), frequent falls or excessive sweating Eyes Eyes: Negative for loss of peripheral vision, transient loss of vision, blurry vision, double vision or tunnel vision ENT ENT: Negative for headache(s), dizziness, Nosebleed/epistaxis or balance problems Cardio Chest Pain: Yes Frequency: weekly Character: other (pressure) Onset: other (random) Location: mid sternal Duration: minutes (10-15) Relieving: rest Palpitations: Yes (daily) feels like its: thumping Edema: Bilateral (hands and feet) Muscle aches with walking: None Resp Respiratory: Positive for SOB with activity; Negative for SOB at rest, SOB orthopnea SOB lying down, Cough or paroxysmal nocturnal dyspnea GI GI: Positive for nausea (2 times per week) and heartburn (constant); Negative vomiting : Negative for hematuria Musc Musc: Positive for joint pain (bilateral knees); Negative for muscle aches/ myalgia, muscle weakness or balance problems Skin Skin: Negative non-healing lesions, rash or unusual bruising Neuro Neuro: Negative for dizziness, lightheadedness, near syncope, syncope, orthostatic symptoms, frequent falls, headache(s), weakness, confusion, memory loss, blurry vision, double vision, vertigo or lack of coordination Kvng Hematologic/Lymphatic : Negative for easy bleeding or easy bruising Endo Endo: Positive for fatigue (5+ years); Negative for excessive sweating, flushing or increased thirst/drinking Psych Psych: Negative for anxiety or depression Allergy Allergy/Immunology: Negative for hives and Negative for rash Cardiology Exam Const Appearance: cooperative, healthy appearing, no acute distress, well developed and well groomed Nut (more content not included)... Normal [facility] Final Surgical Pathology Rep [facility] 06-30-2020 Final Surgical Pathology Report . Pathology Reports Accession: Collected Date/Time: Received Date/Time: Pathologist: [id number] 06/28/2020 13:10 EDT 06/29/2020 08:16 EDT MD MAVERICK YOUNG Final Surgical Pathology Report DIAGNOSIS: GALLBLADDER, CHOLECYSTECTOMY: MILD CHRONIC CHOLECYSTITIS WITH CHOLELITHIASIS. COMMENT: [facility] - [id number] CLINICAL INFORMATION: Procedure: LAPAROSCOPIC CHOLECYSTECTOMY Preoperative diagnosis: CHOLELITHIASIS Postoperative diagnosis: CHOLELITHIASIS SPECIMEN: GALLBLADDER AND CONTENTS GROSS DESCRIPTION: Received in formalin, labeled with the patients name, Case #[id number], and gallbladder Dimensions-10 x 3.5 x 3 cm Cystic duct/pericystic duct lymph node-patent, no lymph node Serosal surface-green -pryor, smooth Luminal contents-dark green liquid bile and multiple yellow multifaceted friable calculi ranging from 0.1 to 1 cm. Mucosal surface-green, velvety Wall thickness-0.1 cm RS- 1 Dictated by BERNARD CHAMBERS MICROSCOPIC DESCRIPTION: Slides reviewed. Electronically Signed by Pathology Report verified by [facility] Electronically signed by MAVERICK YOUNG MD Sign out Date: 06/30/2020 12:02 Performing Lab: [address] ([place]) Comment on above: Performed By: #### U A, UAMICAO #### [place] [address] #### PREGU #### [place] [id number] PREGUon 06-28-2020 HCG ( test) Ql (U) Negative [facility] ([place]) Comment on above: Performed By: #### U A, UAMICAO #### [place] [address] #### PREGU #### [place] [id number] test (u) int HCG not detected. [facility] ([place]) Comment on above: Performed By: #### U A, UAMICAO #### [place] [address] #### PREGU #### [address] [address] .Auto Diffon 05-29-2020 Ammonia (P) [Mass/Vol] 0.80 10 3/mcL Normal 0.15-1.00 [facility] ([place]) Comment on above: Performed By: #### U Dianna UAMICAO #### [place] [address] #### PREGU #### [address] [address] Basophils (Bld) [#/Vol] 0.10 10 3/mcL Normal 0.00-0.19 [facility] ([place]) Comment on above: Performed By: #### Bridgett Bustamante UAMICAO #### [place] [address] #### PREGU #### [address] [address] Basophils/100 WBC (Bld) 0.5 % Normal 0.0-2.5 A [facility] ([place]) Comment on above: Performed By: #### Bridgett Bustamante UAMICAO #### [place] [address] #### PREGU #### [address] [address] Eosinophils (Bld) [#/Vol] 0.20 10 3/mcL Normal 0.00-0.40 [facility] ([place]) Comment on above: Performed By: #### Bridgett Bustmaante UAMICAO #### [place] [address] #### PREGU #### [address] [address] Eosinophils/100 WBC (Bld) 1.8 % Normal 0.0-7.0 [facility] ([place]) Comment on above: Performed By: #### Bridgett Bustamante UAMICAO #### [place] [address] #### PREGU #### [address] [address] Lymphocytes (Bld) [#/Vol] 3.90 10 3/mcL High 0.77-3.85 [facility] ([place]) Comment on above: Performed By: #### U A UAMICAO #### [place] [address] #### PREGU #### [address] [address] Lymphocytes/100 WBC (Bld) 28.9 % Normal 10.0-50.0 [facility] ([place]) Comment on above: Performed By: #### U A, UAMICAO #### [place] [address] #### PREGU #### [address] [address] Monocytes/100 WBC (Bld) 6.0 % Normal 1.7-13.0 A [facility] ([place]) Comment on above: Performed By: #### U A UAMICAO #### [place] [address] #### PREGU #### [address] [address] Neutrophils/100 WBC (Bld) 62.8 % Normal 37.0-80.0 [facility] ([place]) Comment on above: Performed By: #### U A, UAMICAO #### [place] [address] #### PREGU #### [address] [address] .GFRon 05-29-2020 GFR Non- 87 ml/min/1.73sqm Normal [facility] ([place]) Comment on above: Result Comment: GFR Population mean for , Non- Americans Ages 20-29 = 116 mL/min/1.73 sq.m. Ages 30-39 = 107 mL/min/1.73 sq.m. Ages 40-49 = 99 mL/min/1.73 sq.m. Ages 50-59 = 93 mL/min/1.73 sq.m. Ages 60-69 = 85 mL/min/1.73 sq.m. Ages 70+ = 75 mL/min/1.73 sq.m. Chronic Kidney Disease: Less than 60 mL/min/1.73 square meters End Stage Renal Disease: Less than 15 mL/min/1.73 square meters Performed By: #### U Dianna UAMICAO #### [place] [address] #### PREGU #### [address] [address] GFR 106 ml/min/1.73sqm Normal [facility] ([place]) Comment on above: Result Comment: GFR Population mean for , Non- Americans Ages 20-29 = 116 mL/min/1.73 sq.m. Ages 30-39 = 107 mL/min/1.73 sq.m. Ages 40-49 = 99 mL/min/1.73 sq.m. Ages 50-59 = 93 mL/min/1.73 sq.m. Ages 60-69 = 85 mL/min/1.73 sq.m. Ages 70+ = 75 mL/min/1.73 sq.m. Chronic Kidney Disease: Less than 60 mL/min/1.73 square meters End Stage Renal Disease: Less than 15 mL/min/1.73 square meters Performed By: #### Bridgett Bustamante UAMICAO #### [place] [address] #### PREGU #### [address] [address] .NEUABSon 05-29-2020 Neutrophils (Bld) [#/Vol] 8.50 10 3/mcL High 2.85-6.16 [facility] ([place]) Comment on above: Performed By: #### U Dianna UAMICAO #### [place] [address] #### PREGU #### [address] [address] .Urinalysis Microscopic (AO) on 05-29-2020 RBC (U) [#/Vol] None Seen Normal None Seen [facility] ([place]) Comment on above: Performed By: #### U A, UAMICAO #### [place] [address] #### PREGU #### [address] [address] UA Bacteria 3+ /hpf Abnormal [facility] ([place]) Comment on above: Performed By: #### U A, UAMICAO #### [place] [address] #### PREGU #### [address] [address] UA Mucous 1+ /hpf Normal [facility] ([place]) Comment on above: Performed By: #### U A, UAMICAO #### [place] [address] #### PREGU #### [address] [address] UA Squam Epithelial 10-15 Abnormal None Seen [facility] ([place]) Comment on above: Performed By: #### U A, UAMICAO #### [place] [address] #### PREGU #### [address] [address] UA WBC 5-10 Abnormal None Seen [facility] ([place]) Comment on above: Performed By: #### U A, UAMICAO #### [place] [address] #### PREGU #### [address] [address] CBCon 05-29-2020 Erythrocyte distribution width (RBC) [Ratio] 14.0 % Normal 11.5-14.5 [facility] ([place]) Comment on above: Performed By: #### U A, UAMICAO #### [place] [address] #### PREGU #### [address] [address] Hematocrit (Bld) [Volume fraction] 43.8 % Normal 37.0-47.0 [facility] ([place]) Comment on above: Performed By: #### Bridgett Bustamante UAMICAO #### [place] [address] #### PREGU #### [address] [address] Hemoglobin (Bld) [Mass/Vol] 14.4 G/dL Normal 12.0-16.0 [facility] ([place]) Comment on above: Performed By: #### Bridgett Bustamante UAMICAO #### [place] [address] #### PREGU #### [address] [address] MCH (RBC) [Entitic mass] 27.4 pg Normal 27.0-31.2 [facility] ([place]) Comment on above: Performed By: #### Bridgett Bustamante UAMICAO #### [place] [address] #### PREGU #### [address] [address] MCHC (RBC) [Mass/Vol] 32.9 G/dL Low 33.0-37.0 [facility] ([place]) Comment on above: Performed By: #### Bridgett Bustamante UAMICAO #### [place] [address] #### PREGU #### [address] [address] MCV (RBC) [Entitic vol] 83.2 fL Normal 80.0-94.0 A [facility] ([place]) Comment on above: Performed By: #### Bridgett Bustamante UAMICAO #### [place] [address] #### PREGU #### [address] [address] Platelet mean volume (Bld) [Entitic vol] 9.2 fL Normal 7.4-10.4 [facility] ([place] Comment on above: Performed By: #### Bridgett Bustamante UAMICAO #### [place] [address] #### PREGU #### [address] [address] Platelets (Bld) [#/Vol] 310 10 3/mcL Normal 130-400 [facility] ([place]) Comment on above: Performed By: #### Bridgett Bustamante UAMICAO #### [place] [address] #### PREGU #### [address] [address] RBC (Bld) [#/Vol] 5.27 10 6/mcL Normal 4.20-5.40 [facility] ([place]) Comment on above: Performed By: #### Bridgett Bustamante UAMICAO #### [place] [address] #### PREGU #### [address] [address] WBC (Bld) [#/Vol] 13.50 10 3/mcL High 4.60-10.80 [facility] ([place] Comment on above: Performed By: #### Bridgett Bustamante UAMICAO #### [place] [address] #### PREGU #### [address] [address] CMPon 05-29-2020 Albumin [Mass/Vol] 4.0 G/dL Normal 3.5-5.0 [facility] ([place]) Comment on above: Performed By: #### Bridgett Bustamante UAMICAO #### [place] [address] #### PREGU #### [address] [address] Albumin/Globulin [Mass ratio] 1.1 {ratio} Normal 1.1-2.5 [facility] ([place]) Comment on above: Performed By: #### Bridgett Bustamante UAMICAO #### [place] [address] #### PREGU #### [address] [address] ALP [Catalytic activity/Vol] 116 U/L Normal 40-135 [facility] ([place]) Comment on above: Performed By: #### Bridgett Bustamante UAMICAO #### [place] [address] #### PREGU #### [address] [address] ALT [Catalytic activity/Vol] 49 U/L High 10-35 [facility] ([place]) Comment on above: Performed By: #### Bridgett Bustamante UAMICAO #### [place] [address] #### PREGU #### [address] [address] AST [Catalytic activity/Vol] 24 U/L Normal 10-40 [facility] ([place] Comment on above: Performed By: #### Bridgett Bustamante UAMICAO #### [place] [address] #### PREGU #### [address] [address] Bili Total 0.4 mg/dL Normal 0.2-1.0 [facility] ([place]) Comment on above: Result Comment: Use of this assay is not recommended for patients undergoing treatment with eltrombopag due to the potential for falsely elevated results. Performed By: #### Bridgett Bustamante UAMICAO #### [place] [address] #### PREGU #### [address] [address] Calcium [Mass/Vol] 9.0 mg/dL Normal 8.4-10.2 [facility] ([place]) Comment on above: Performed By: #### Bridgett Bustamante UAMICAO #### [place] [address] #### PREGU #### [address] [address] Chloride [Moles/Vol] 101 mmol/L Normal 98-107 [facility] ([place]) Comment on above: Performed By: #### U A, UAMICAO #### [place] [address] #### PREGU #### [address] [address] CO2 [Moles/Vol] 26 mmol/L Normal 22-29 [facility] ([place]) Comment on above: Performed By: #### U A, UAMICAO #### [place] [address] #### PREGU #### [address] [address] Creatinine [Mass/Vol] 0.82 mg/dL Normal 0.55-1.02 [facility] ([place] Comment on above: Performed By: #### U A, UAMICAO #### [place] [address] #### PREGU #### [address] [address] Electrolyte Balance 13.0 mEq/L Normal [facility] ([place]) Comment on above: Performed By: #### Bridgett Bustamante UAMICAO #### [place] [address] #### PREGU #### [address] [address] Globulin (S) [Mass/Vol] 3.7 G/dL Normal A [facility] ([place]) Comment on above: Performed By: #### U A, UAMICAO #### [place] [address] #### PREGU #### [address] [address] Glucose [Mass/Vol] 91 mg/dL Normal 70-105 [facility] ([place]) Comment on above: Performed By: #### U A, UAMICAO #### [place] [address] #### PREGU #### [address] [address] Potassium [Moles/Vol] 3.7 mmol/L Normal 3.5-5.1 [facility] ([place] Comment on above: Performed By: #### U A, UAMICAO #### [place] [address] #### PREGU #### [address] [address] Protein [Mass/Vol] 7.7 G/dL Normal 6.4-8.2 [facility] ([place]) Comment on above: Performed By: #### U A, UAMICAO #### [place] [address] #### PREGU #### [address] [address] Sodium [Moles/Vol] 140 mmol/L Normal 136-145 [facility] ([place]) Comment on above: Performed By: #### U A, UAMICAO #### [place] [address] #### PREGU #### [address] [address] Urea nitrogen [Mass/Vol] 16 mg/dL Normal 7-18 [facility] [facility] ([place]) Comment on above: Performed By: #### U A, UAMICAO #### [place] [address] #### PREGU #### [address] [address] Urea nitrogen/Creatinine [Mass ratio] 20 ratio Normal 7-27 [facility] ([place]) Comment on above: Performed By: #### U A, UAMICAO #### [place] [address] #### PREGU #### [address] [address] LIPon 05-29-2020 Lipase Level 89 U/L Normal 73-393 [facility] ([place] Comment on above: Performed By: #### U A, UAMICAO #### [place] [address] #### PREGU #### [address] [address] PREGUon 05-29-2020 HCG ( test) Ql (U) Negative Normal [facility] ([place]) Comment on above: Performed By: #### U A, UAMICAO #### [place] [address] #### PREGU #### [address] [address] test (u) int HCG not detected. [facility] ([place]) Comment on above: Performed By: #### U A, UAMICAO #### [place] [address] #### PREGU #### [address] [address] UAon 05-29-2020 Color (U) Yellow Normal [facility] ([place]) Comment on above: Performed By: #### U A, UAMICAO #### [place] [address] #### PREGU #### [address] [address] Glucose (U) [Mass/Vol] Negative Normal Negative [facility] ([place]) Comment on above: Performed By: #### U A, UAMICAO #### [place] [address] #### PREGU #### [address] [address] Ketones Ql (U) Negative Normal Negative [facility] ([place]) Comment on above: Performed By: #### U A, UAMICAO #### [place] [address] #### PREGU #### [address] [address] UA Appear Clear Normal Clear [facility] ([place] Comment on above: Performed By: #### U A, UAMICAO #### [place] [address] #### PREGU #### [address] [address] UA Blood Negative Normal Negative [facility] ([place] Comment on above: Performed By: #### U A, UAMICAO #### [place] [address] #### PREGU #### [place] [address] UA Leuk Est Trace Abnormal Negative [facility] ([place] Comment on above: Performed By: #### U A, UAMICAO #### [place] [address] #### PREGU #### [place] [address] UA Nitrite Negative Normal Negative [facility] ([place] Comment on above: Performed By: #### U A, UAMICAO #### [place] [address] #### PREGU #### [place] [address] UA pH 7.0 Normal 5.0 - 8.0 [facility] ([place] Comment on above: Performed By: #### U A, UAMICAO #### [place] [address] #### PREGU #### [place] [address] UA Protein Negative Normal Negative [facility] ([place] Comment on above: Performed By: #### U A, UAMICAO #### [place] [address] #### PREGU #### [place] [address] UA Spec Grav >=1.030 Abnormal 1.015-1.025 [facility] ([place] Comment on above: Performed By: #### U A, UAMICAO #### [place] [address] #### PREGU #### [place] [address] UA Specimen Type Void Normal [facility] ([place] Comment on above: Performed By: #### U A, UAMICAO #### [place] [address] #### PREGU #### [place] [address] UA Urobilinogen 0.2 E.U./dL Normal 0.2-1.0 [facility] ([place] Comment on above: Performed By: #### U A, UAMICAO #### [place] [address] #### PREGU #### [place] [address] Urobilinogen Qn (U) Negative Normal Negative [facility] ([place] Comment on above: Performed By: #### U A, UAMICAO #### [place] [address] #### PREGU #### [place] [address] .Auto Diffon 11-27-2019 Ammonia (P) [Mass/Vol] 0.60 10 3/mcL Normal 0.15-1.00 [facility] ([place] Comment on above: Performed By: #### C ADRIANA WATSON, ANEU #### [place] [address] #### LIP, CMP, GFR #### [place] [address] Basophils (Bld) [#/Vol] 0.10 10 3/mcL Normal 0.00-0.19 [facility] ([place] Comment on above: Performed By: #### C BC ADIFF, ANEU #### [place] [address] #### LIP, CMP, GFR #### [place] [address] Basophils/100 WBC (Bld) 0.5 % Normal 0.0-2.5 A [facility] ([place]) Comment on above: Performed By: #### C BC, ADIFF, ANEU #### [address] [address] #### LIP, CMP, GFR #### [address] [address] Eosinophils (Bld) [#/Vol] 0.10 10 3/mcL Normal 0.00-0.40 [facility] ([place]) Comment on above: Performed By: #### C BC, ADIFF, ANEU #### [address] [address] #### LIP, CMP, GFR #### [address] [address] Eosinophils/100 WBC (Bld) 0.7 % Normal 0.0-7.0 [facility] ([place] Comment on above: Performed By: #### C BC, ADIFF, ANEU #### [address] [address] #### LIP, CMP, GFR #### [address] [address] Lymphocytes (Bld) [#/Vol] 2.40 10 3/mcL Normal 0.77-3.85 [facility] ([place] Comment on above: Performed By: #### C BC, ADIFF, ANEU #### [address] [address] #### LIP, CMP, GFR #### [address] [address] Lymphocytes/100 WBC (Bld) 17.2 % Normal 10.0-50.0 [facility] ([place] Comment on above: Performed By: #### C BC, ADIFF, ANEU #### [address] [address] #### LIP, CMP, GFR #### [address] [address] Monocytes/100 WBC (Bld) 4.1 % Normal 1.7-13.0 A [facility] ([place]) Comment on above: Performed By: #### C BC, ADIFF, ANEU #### [address] [address] #### LIP, CMP, GFR #### [address] [address] Neutrophils/100 WBC (Bld) 77.5 % Normal 37.0-80.0 [facility] ([place] Comment on above: Performed By: #### C BC, ADIFF, ANEU #### [address] [address] #### LIP, CMP, GFR #### [address] [address] .GFRon 11-27-2019 GFR 101 ml/min/1.73sqm Normal [facility] ([place]) Comment on above: Result Comment: GFR Population mean for , Non- Americans Ages 20-29 = 116 mL/min/1.73 sq.m. Ages 30-39 = 107 mL/min/1.73 sq.m. Ages 40-49 = 99 mL/min/1.73 sq.m. Ages 50-59 = 93 mL/min/1.73 sq.m. Ages 60-69 = 85 mL/min/1.73 sq.m. Ages 70+ = 75 mL/min/1.73 sq.m. Chronic Kidney Disease: Less than 60 mL/min/1.73 square meters End Stage Renal Disease: Less than 15 mL/min/1.73 square meters Performed By: #### C BC, ADIFF, ANEU #### [address] [address] #### LIP, CMP, GFR #### [address] [address] GFR Non- 84 ml/min/1.73sqm Normal [facility] ([place]) Comment on above: Result Comment: GFR Population mean for , Non- Americans Ages 20-29 = 116 mL/min/1.73 sq.m. Ages 30-39 = 107 mL/min/1.73 sq.m. Ages 40-49 = 99 mL/min/1.73 sq.m. Ages 50-59 = 93 mL/min/1.73 sq.m. Ages 60-69 = 85 mL/min/1.73 sq.m. Ages 70+ = 75 mL/min/1.73 sq.m. Chronic Kidney Disease: Less than 60 mL/min/1.73 square meters End Stage Renal Disease: Less than 15 mL/min/1.73 square meters Performed By: #### C BC, ADIFF, ANEU #### [place] [address] #### LIP, CMP, GFR #### [place] [address] .NEUABSon 11-27-2019 Neutrophils (Bld) [#/Vol] 10.60 10 3/mcL High 2.85-6.16 [facility] ([place] Comment on above: Performed By: #### C SHIRLEY, ADRIANA, ANEU #### [place] [address] #### LIP, CMP, GFR #### [place] [address] .Urinalysis Microscopic (AO) on 11-27-2019 RBC (U) [#/Vol] LOADED Abnormal None Seen [facility] ([place] Comment on above: Performed By: #### U A, UAMICAO #### [place] [address] #### PREGU #### [address] [address] UA Bacteria Trace Abnormal [facility] ([place] Comment on above: Performed By: #### U A, UAMICAO #### [place] [address] #### PREGU #### [address] [address] UA Squam Epithelial 5-10 Abnormal None Seen [facility] ([place] Comment on above: Performed By: #### U A, UAMICAO #### [place] [address] #### PREGU #### [address] [address] UA WBC None Seen Normal None Seen [facility] ([place] Comment on above: Performed By: #### U A, UAMICAO #### [address] [address] #### PREGU #### [address] [address] CBCon 11-27-2019 Erythrocyte distribution width (RBC) [Ratio] 14.3 % Normal 11.5-14.5 [facility] ([place] Comment on above: Performed By: #### C ADRIANA WATSON, ANEU #### [place] [address] #### LIP, CMP, GFR #### [place] [address] Hematocrit (Bld) [Volume fraction] 43.4 % Normal 37.0-47.0 [facility] ([place] Comment on above: Performed By: #### C ADRIANA WATSON, ANEU #### [place] [address] #### LIP, CMP, GFR #### [place] [address] Hemoglobin (Bld) [Mass/Vol] 14.0 G/dL Normal 12.0-16.0 [facility] ([place] Comment on above: Performed By: #### C SHIRLEY ADIFF, ANEU #### [place] [address] #### LIP, CMP, GFR #### [place] [address] MCH (RBC) [Entitic mass] 26.6 pg Low 27.0-31.2 [facility] ([place] Comment on above: Performed By: #### C BC, ADIFF, ANEU #### [place] [address] #### LIP, CMP, GFR #### [place] [address] MCHC (RBC) [Mass/Vol] 32.2 G/dL Low 33.0-37.0 [facility] ([place] Comment on above: Performed By: #### C BC, ADIFF, ANEU #### [address] [address] #### LIP, CMP, GFR #### [address] [address] MCV (RBC) [Entitic vol] 82.5 fL Normal 80.0-94.0 A [facility] ([place] Comment on above: Performed By: #### C BC, ADIFF, ANEU #### [place] [address] #### LIP, CMP, GFR #### [address] [address] Platelet mean volume (Bld) [Entitic vol] 8.9 fL Normal 7.4-10.4 [facility] ([place] Comment on above: Performed By: #### C BC, ADIFF, ANEU #### [place] [address] #### LIP, CMP, GFR #### [address] [address] Platelets (Bld) [#/Vol] 334 10 3/mcL Normal 130-400 [facility] ([place] Comment on above: Performed By: #### C BC, ADIFF, ANEU #### [place] [address] #### LIP, CMP, GFR #### [address] [address] RBC (Bld) [#/Vol] 5.25 10 6/mcL Normal 4.20-5.40 [facility] ([place]) Comment on above: Performed By: #### C BC, ADIFF, ANEU #### [address] [address] #### LIP, CMP, GFR #### [address] [address] WBC (Bld) [#/Vol] 13.70 10 3/mcL High 4.60-10.80 [facility] ([place] Comment on above: Performed By: #### C BC, ADIFF, ANEU #### [address] [address] #### LIP, CMP, GFR #### [address] [address] CMPon 11-27-2019 Albumin [Mass/Vol] 4.1 G/dL Normal 3.5-5.0 [facility] ([place]) Comment on above: Performed By: #### C BC, ADIFF, ANEU #### [place] [address] #### LIP, CMP, GFR #### [address] [address] Albumin/Globulin [Mass ratio] 1.1 {ratio} Normal 1.1-2.5 [facility] ([place] Comment on above: Performed By: #### C BC, ADIFF, ANEU #### [place] [address] #### LIP, CMP, GFR #### [address] [address] ALP [Catalytic activity/Vol] 119 U/L Normal 40-135 [facility] ([place]) Comment on above: Performed By: #### C BC, ADIFF, ANEU #### [place] [address] #### LIP, CMP, GFR #### [address] [address] ALT [Catalytic activity/Vol] 64 U/L High 10-35 [facility] ([place]) Comment on above: Performed By: #### C BC, ADIFF, ANEU #### [address] [address] #### LIP, CMP, GFR #### [address] [address] AST [Catalytic activity/Vol] 81 U/L High 10-40 [facility] ([place]) Comment on above: Performed By: #### C BC, ADIFF, ANEU #### [place] [id number] #### LIP, CMP, GFR #### [address] [address] Bili Total 0.4 mg/dL Normal 0.2-1.0 [facility] ([place] Comment on above: Performed By: #### C BC, ADIFF, ANEU #### [address] [address] #### LIP, CMP, GFR #### [address] [address] Calcium [Mass/Vol] 9.1 mg/dL Normal 8.4-10.2 [facility] ([place]) Comment on above: Performed By: #### C BC, ADIFF, ANEU #### [address] [address] #### LIP, CMP, GFR #### [address] [address] Chloride [Moles/Vol] 102 mmol/L Normal 98-107 [facility] ([place] Comment on above: Performed By: #### C BC, ADIFF, ANEU #### [address] [address] #### LIP, CMP, GFR #### [address] [address] CO2 [Moles/Vol] 26 mmol/L Normal 22-29 [facility] ([place] Comment on above: Performed By: #### C BC, ADIFF, ANEU #### [address] [address] #### LIP, CMP, GFR #### [address] [address] Creatinine [Mass/Vol] 0.85 mg/dL Normal 0.55-1.02 [facility] ([place] Comment on above: Performed By: #### C BC, ADIFF, ANEU #### [address] [address] #### LIP, CMP, GFR #### [address] [address] Electrolyte Balance 10.0 mEq/L Normal [facility] ([place] Comment on above: Performed By: #### C BC, ADIFF, ANEU #### [address] [address] #### LIP, CMP, GFR #### [address] [address] Globulin (S) [Mass/Vol] 3.9 G/dL Normal A [facility] ([place] Comment on above: Performed By: #### C BC, ADIFF, ANEU #### [address] [address] #### LIP, CMP, GFR #### [address] [address] Glucose [Mass/Vol] 100 mg/dL Normal 70-105 [facility] ([place] Comment on above: Performed By: #### C BC, ADIFF, ANEU #### [address] [address] #### LIP, CMP, GFR #### [address] [address] Potassium [Moles/Vol] 4.4 mmol/L Normal 3.5-5.1 [facility] ([place] Comment on above: Performed By: #### C BC, ADIFF, ANEU #### [address] [address] #### LIP, CMP, GFR #### [address] [address] Protein [Mass/Vol] 8.0 G/dL Normal 6.4-8.2 [facility] ([place] Comment on above: Performed By: #### C BC, ADIFF, ANEU #### [address] [address] #### LIP, CMP, GFR #### [address] [address] Sodium [Moles/Vol] 138 mmol/L Normal 136-145 [facility] ([place] Comment on above: Performed By: #### C BC, ADIFF, ANEU #### [address] [address] #### LIP, CMP, GFR #### [address] [address] Urea nitrogen [Mass/Vol] 19 mg/dL High 04-03 [facility] ([place] Comment on above: Performed By: #### C BC, ADIFF, ANEU #### [address] [address] #### LIP, CMP, GFR #### [address] [address] Urea nitrogen/Creatinine [Mass ratio] 22 ratio Normal 04-12 [facility] ([place] Comment on above: Performed By: #### C BC, ADIFF, ANEU #### [address] [address] #### LIP, CMP, GFR #### [address] [address] LIPon 11-27-2019 Lipase Level 83 U/L Normal 73-393 [facility] ([place] Comment on above: Performed By: #### C BC, ADIFF, ANEU #### [address] [address] #### LIP, CMP, GFR #### [address] [address] PREGUon 11-27-2019 HCG ( test) Ql (U) Negative Normal [facility] ([place] Comment on above: Performed By: #### U A, UAMICAO #### [place] [address] #### PREGU #### [address] [address] test (u) int HCG not detected. [facility] ([place] Comment on above: Performed By: #### U A, UAMICAO #### [place] [address] #### PREGU #### [address] [address] UAon 11-27-2019 Color (U) Yellow Normal [facility] ([place] Comment on above: Performed By: #### U A, UAMICAO #### [place] [address] #### PREGU #### [address] [address] Glucose (U) [Mass/Vol] Negative Normal Negative [facility] ([place] Comment on above: Performed By: #### U A, UAMICAO #### [place] [address] #### PREGU #### [address] [address] Ketones Ql (U) Negative Normal Negative [facility] ([place] Comment on above: Performed By: #### U A, UAMICAO #### [place] [address] #### PREGU #### [address] [address] UA Appear Clear Normal Clear [facility] ([place] Comment on above: Performed By: #### U A, UAMICAO #### [place] [address] #### PREGU #### [address] [address] UA Blood Large Abnormal Negative [facility] ([place] Comment on above: Performed By: #### U A, UAMICAO #### [place] [address] #### PREGU #### [address] [address] UA Leuk Est Negative Normal Negative [facility] ([place] Comment on above: Performed By: #### U A, UAMICAO #### [place] [address] #### PREGU #### [address] [address] UA Nitrite Negative Normal Negative [facility] ([place] Comment on above: Performed By: #### U A, UAMICAO #### [place] [address] #### PREGU #### [address] [address] UA pH 6.0 Normal 5.0 - 8.0 [facility] ([place] Comment on above: Performed By: #### U A, UAMICAO #### [place] [address] #### PREGU #### [place] [address] UA Protein Negative Normal Negative [facility] ([place] Comment on above: Performed By: #### U A, UAMICAO #### [place] [address] #### PREGU #### [place] [address] UA Spec Grav >=1.030 Abnormal 1.015-1.025 [facility] ([place] Comment on above: Performed By: #### U A, UAMICAO #### [place] [address] #### PREGU #### [place] [address] UA Specimen Type Clean Catch Normal [facility] ([place] Comment on above: Performed By: #### U A, UAMICAO #### [place] [address] #### PREGU #### [place] [address] UA Urobilinogen 0.2 E.U./dL Normal 0.2-1.0 [facility] ([place] Comment on above: Performed By: #### U A, UAMICAO #### [place] [address] #### PREGU #### [place] [address] Urobilinogen Qn (U) Negative Normal Negative [facility] ([place] Comment on above: Performed By: #### U A, UAMICAO #### [place] [address] #### PREGU #### [place] [id number] [place], [place] [address] US ABDOMEN LIMITEDon 020 US ABDOMEN LIMITED ORIGINAL US ABDOMEN LIMITED: Ultrasound of the RIGHT upper quadrant CLINICAL STATEMENT: abdominal pain. COMPARISON: None FINDINGS: The liver is normal in size and has mildly increased and heterogenous echotexture. No focal lesions are seen. There is no intra or extrahepatic bile duct dilatation. The common duct is 5 mm at the jammie hepatis. There is a small collection of gallstones up to 14 mm. The gallbladder is normally distended without wall thickening or tenderness. The visualized pancreas is normal in size and echogenicity. No ascites is seen in the Wells's pouch. The right kidney shows no pelvocaliectasis. RIGHT kidney measures 12.3 x 4.2 x 4.7 cm. No RIGHT renal cyst or solid lesion. IMPRESSION: 1. Mild fatty liver. No focal liver lesions. 2. Cholelithiasis but no indication of cholecystitis. No biliary dilatation. 3. Rest of study negative. Interpreted By: Cruz Kilgore Preliminary Report By: Cruz Kilgore Electronically Signed By: Cruz Kilgore Dictated Date: 11/27/2019 11:54:17 AM Prelim Date: 11/27/2019 11:54:17 AM Sign Date: 11/27/2019 11:57:48 AM Ordering Provider:Carlos Patterson [facility] ([place]) Vital Signs Date Time Vital Sign Value Performing Clinician Aurelia guillaume 04-29-2025 16:41-0400 Body mass index (BMI) [Ratio] 56.72 kg/m2 Landy Swank SALES REPRESENTATIVE [employer] ANALY[employer] Work Phone: [facility] 04-29-2025 16:41-0400 Body temperature 98.6 [degF] Landy Swank SALES REPRESENTATIVE [employer] FUNCTIONAL ANALYST Work Phone: [facility] 04-29-2025 16:41-0400 Body weight 141.6 kg Landy Swank SALES REPRESENTATIVE [employer] FUNCTIONAL ANALYST Work Phone: [facility] 04-29-2025 16:41-0400 Diastolic blood pressure 82 mm[Hg] Landy Swank SALES REPRESENTATIVE [employer] FUNCTIONAL ANALYST Work Phone: [facility] 04-29-2025 16:41-0400 Heart rate 96 /min Landy Swank SALES REPRESENTATIVE [employer] FUNCTIONAL ANALYST Work Phone: [facility] 04-29-2025 16:41-0400 Respiratory rate 18 /min Landy Swank SALES REPRESENTATIVE [employer] FUNCTIONAL ANALYST Work Phone: [facility] 04-29-2025 16:41-0400 SaO2% (BldA) [Mass fraction] 100 % Landy Swank SALES REPRESENTATIVE [employer] FUNCTIONAL ANALYST Work Phone: [facility] 04-29-2025 16:41-0400 Systolic blood pressure 130 mm[Hg] Landy Swank SALES REPRESENTATIVE [employer] FUNCTIONAL ANALYST Work Phone: [facility] 03-25-2024 15:32-0400 Body height 158 cm Hector Bauer MD Work Phone: [facility] 03-25-2024 15:32-0400 Body mass index (BMI) [Ratio] 52.58 kg/m2 Hector Bauer MD Work Phone: [facility] 03-25-2024 15:32-0400 Body weight 131.27 kg Hector Bauer MD Work Phone: [facility] 03-25-2024 15:32-0400 Diastolic blood pressure 82 mm[Hg] Hector Bauer MD Work Phone: [facility] 03-25-2024 15:32-0400 Systolic blood pressure 138 mm[Hg] Hector Bauer MD Work Phone: [facility] 01-03-2024 15:00-0400 Diastolic blood pressure 86 mm[Hg] Michael Golias PT Work Phone: [facility] 01-03-2024 15:00-0400 Heart rate 80 /min Michael Golias PT Work Phone: [facility] 01-03-2024 15:00-0400 Systolic blood pressure 133 mm[Hg] Michael Golias PT Work Phone: [facility] 12-20-2023 17:04-0400 Body weight 131.54 kg Leieser Ulicesoble SALES REPRESENTATIVE [employer] FUNCTIONAL ANALYST Work Phone: [facility] 12-20-2023 17:04-0400 Diastolic blood pressure 76 mm[Hg] Elieser Knoble SALES REPRESENTATIVE [employer] FUNCTIONAL ANALYST Work Phone: [facility] 12-20-2023 17:04-0400 Heart rate 84 /min Elieser Knoble SALES REPRESENTATIVE [employer] FUNCTIONAL ANALYST Work Phone: [facility] 12-20-2023 17:04-0400 Respiratory rate 16 /min Elieser Ulicesoble SALES REPRESENTATIVE [employer] FUNCTIONAL ANALYST Work Phone: [facility] 12-20-2023 17:04-0400 Systolic blood pressure 128 mm[Hg] Elieser Ulicesoble SALES REPRESENTATIVE [employer] FUNCTIONAL ANALYST Work Phone: [facility] 08-08-2023 15:50-0500 Body weight 130.64 kg Elieser Ulicesoble SALES REPRESENTATIVE [employer] FUNCTIONAL ANALYST Work Phone: [facility] 08-08-2023 15:50-0500 Diastolic blood pressure 78 mm[Hg] Elieser Ulicesoble SALES REPRESENTATIVE [employer] FUNCTIONAL ANALYST Work Phone: [facility] 08-08-2023 15:50-0500 Heart rate 110 /min Elieser Ulicesoble SALES REPRESENTATIVE [employer] FUNCTIONAL ANALYST Work Phone: [facility] 08-08-2023 15:50-0500 Respiratory rate 16 /min Elieser Ulicesoble SALES REPRESENTATIVE [employer] FUNCTIONAL ANALYST Work Phone: [facility] 08-08-2023 15:50-0500 Systolic blood pressure 134 mm[Hg] Elieser Knoble SALES REPRESENTATIVE [employer] FUNCTIONAL ANALYST Work Phone: [facility] 11-05-2022 18:10-0500 Diastolic blood pressure 85 mm[Hg] No Primary Care Physician [place] 11-05-2022 18:10-0500 Respiratory rate 18 /min No Primary Care Physician [place] 11-05-2022 18:10-0500 Systolic blood pressure 139 mm[Hg] No Primary Care Physician [place] 11-05-2022 15:58-0500 Body height 157.48 cm No Primary Care Physician [place] 11-05-2022 15:58-0500 Body mass index (BMI) [Ratio] 50.2 kg/m2 No Primary Care Physician [place] 11-05-2022 15:58-0500 Body weight 124.6 kg No Primary Care Physician [place] 11-05-2022 15:21-0500 Body temperature 96 [degF] No Primary Care Physician [place] 11-05-2022 15:21-0500 Heart rate 93 /min No Primary Care Physician [place] 11-05-2022 15:21-0500 SaO2% (BldA) [Mass fraction] 97 % No Primary Care Physician [place] 10-25-2022 14:57-0500 Body mass index (BMI) [Ratio] 49.9 kg/m2 No Primary Care Physician [place] 10-25-2022 14:57-0500 Body weight 123.83 kg No Primary Care Physician [place] 10-25-2022 14:57-0500 Diastolic blood pressure 88 mm[Hg] No Primary Care Physician [place] 10-25-2022 14:57-0500 Heart rate 85 /min No Primary Care Physician [place] 10-25-2022 14:57-0500 Respiratory rate 16 /min No Primary Care Physician [place] 10-25-2022 14:57-0500 Systolic blood pressure 146 mm[Hg] No Primary Care Physician [place] 07-20-2022 14:51-0400 Diastolic blood pressure 83 mm[Hg] Alma Delia DC-C Work Phone: [facility] 07-20-2022 14:51-0400 Systolic blood pressure 131 mm[Hg] Alma Delia DC-C Work Phone: [facility] 07-20-2022 14:21-0400 Body temperature 98.4 [degF] Alma Delia DC-C Work Phone: [facility] 07-20-2022 14:21-0400 Body weight 122.02 kg Alma Delia DC-C Work Phone: [facility] 07-20-2022 14:21-0400 Heart rate 72 /min Alma Delia DC-C Work Phone: [facility] 07-20-2022 14:21-0400 Respiratory rate 18 /min Alma Delia Chaidez PA-C Work Phone: [facility] 05-16-2022 16:12-0400 Body weight 124.29 kg Nurse Wstr Work Phone: [facility] 05-16-2022 16:12-0400 Diastolic blood pressure 72 mm[Hg] Nurse Wstr Work Phone: [facility] 05-16-2022 16:12-0400 Systolic blood pressure 132 mm[Hg] Nurse Wstr Work Phone: [facility] 02-28-2022 16:06-0400 Body height 158.1 cm Hector Bauer MD Work Phone: [facility] 02-28-2022 16:06-0400 Body weight 124.74 kg Hector Bauer MD Work Phone: [facility] 02-28-2022 16:06-0400 Diastolic blood pressure 84 mm[Hg] Hector Bauer MD Work Phone: [facility] 02-28-2022 16:06-0400 Systolic blood pressure 140 mm[Hg] Hector Bauer MD Work Phone: [facility] Encounters Encounter Date Encounter Type Care Provider Facility Start: 04-29-2025 End: 04-29-2025 Patient encounter procedure Landy Godfrey SALES REPRESENTATIVE GRAPHIC ART.PEOPLESOFT FUNCTIONAL ANALYST Work Phone: [facility] Comment on above: Oral herpes (Primary Dx) Start: 04-29-2025 End: 04-29-2025 ambulatory LANDY SWANK Facility:[facility] Start: 04-28-2025 End: 04-29-2025 ambulatory Alma Delia Chaidez PA-C Work Phone: [facility] Comment on above: Cold sore break out Start: 05-08-2024 End: 05-08-2024 Telephone encounter Hector Bauer MD Work Phone: OB/Gynecology Comment on above: Results Start: 05-06-2024 End: 05-06-2024 ambulatory HECTOR BAUER OB/Gynecology Start: 05-06-2024 End: 05-06-2024 Patient encounter procedure Whi Tech 1 Instrumentation Tech Wstr [facility] OB/Gynecology Start: 03-25-2024 End: 03-25-2024 Patient encounter procedure Hector Bauer MD Work Phone: OB/Gynecology Comment on above: PCB (post coital ble eding) (Primary Dx) Start: 03-19-2024 End: 03-19-2024 ambulatory Michael Golias PT Work Phone: [facility] Comment on above: Chronic 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 (Primary Dx) Start: 03-05-2024 End: 03-05-2024 ambulatory Jeannie Jessicaba NETWORK SECURITY ENGINEER Work Phone: [facility] Comment on above: Chronic 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 (Primary Dx) Start: 02-26-2024 End: 02-26-2024 ambulatory Jeannie HughesCloud Nine Productionsba NETWORK SECURITY ENGINEER Work Phone: [facility] Comment on above: Chronic 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 (Primary Dx) Start: 02-19-2024 End: 02-19-2024 ambulatory Michael Golias PT Work Phone: [facility] Comment on above: Chronic 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 (Primary Dx) Start: 01-03-2024 End: 01-03-2024 ambulatory Michael Golias PT Work Phone: [facility] Comment on above: Chronic midline low back pain without sciatica; Chronic bilateral low back pain with bilateral sciatica Start: 12-31-2023 End: 12-31-2023 ambulatory Joseline Mosley PA-C Work Phone: Integrative [facility] Comment on above: Chronic 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 (Primary Dx); Anxiety with depression; Morbid obesity with BMI of 50.0-59.9, adult (HCC); Migraine without aura, intractable, without status migrainosus Start: 12-31-2023 End: 12-31-2023 Telemedicine consultation with patient Joseline Mosley PA-C Work Phone: [facility] Start: 12-20-2023 End: 12-20-2023 Patient encounter procedure Elieser Lux APRN.PEOPLESOFT FUNCTIONAL ANALYST Work Phone: [facility] Comment on above: Morbid obesity with BMI of 50.0-59.9, adult (HCC) (Primary Dx); Chronic midline low back pain without sciatica Start: 11-16-2023 Refill Elieser dewitt APRN.PEOPLESOFT FUNCTIONAL ANALYST Work Phone: [facility] Comment on above: Refill Request Start: 09-04-2023 End: 09-04-2023 Subsequent hospital visit by physician Xr [facility] Work Phone: Radiology Comment on above: URI, acute [J06.9] Start: 08-13-2023 Telephone encounter Elieser rodriguez APRN.PEOPLESOFT FUNCTIONAL ANALYST Work Phone: [facility] Comment on above: Results Start: 08-08-2023 End: 08-08-2023 Subsequent hospital visit by physician Xr [facility] Work Phone: Radiology Comment on above: Chronic bilateral lo w back pain without sciatica [M54.50, G89.29] Start: 08-08-2023 End: 08-08-2023 Patient encounter procedure Elieser Lux APRN.PEOPLESOFT FUNCTIONAL ANALYST Work Phone: [facility] Comment on above: Gastroesophageal ref lux disease with esophagitis without hemorrhage (Primary Dx); Chronic bilateral low back pain without sciatica Start: 2023 Patient encounter status Dominic Lux APRN.PEOPLESOFT FUNCTIONAL ANALYST Work Phone: [facility] Work Phone: Start: 04-25-2023 ambulatory Alma Delia DC-Billy Work Phone: [facility] Comment on above: Painful cold sore Start: 12-05-2022 ambulatory Marco Rasmussen Facility:[facility] Start: 12-05-2022 Non-patient / Non-visit [facility] Start: 12-05-2022 End: 12-05-2022 ambulatory No Primary Care Physician [place] Work Phone: Start: 12-05-2022 End: 12-05-2022 Patient encounter procedure No Primary Care Physician [place] Start: 11-05-2022 End: 11-05-2022 Emergency department patient visit Panfilo Chin Facility:[place] Start: 11-05-2022 End: 11-05-2022 Emergency department patient visit No Primary Care Physician [place] Start: 11-02-2022 Non-patient / Non-visit No Alyssa stephie Care Physician [place] Start: 11-02-2022 End: 11-02-2022 [facility] Start: 11-02-2022 End: 11-02-2022 Patient encounter procedure No Primary Care Physician [place] Start: 10-25-2022 End: 10-25-2022 [facility] Start: 10-25-2022 End: 10-25-2022 Patient encounter procedure No Primary Care Physician [place] Start: 07-24-2022 Telephone encounter Alma Delia lopez PA-C Work Phone: [facility] Comment on above: Results Start: 07-20-2022 End: 07-20-2022 Patient encounter procedure Alma Delia Chaidez PA-C Work Phone: [facility] Comment on above: Lightheadedness (Alyssa stephie Dx); Palpitations; Numbness and tingling; Flushing; Positional lightheadedness; Screening for diabetes mellitus; Screening for lipid disorders; Need for hepatitis C screening test; Encounter for immunization Start: 05-16-2022 End: 05-16-2022 Nursing evaluation of patient and report Nurse Baker Test [facility] Work Phone: OB/Gynecology Comment on above: Need for prophylacti c vaccination/inoculation against viral disease (Primary Dx) Start: 02-28-2022 End: 02-28-2022 Patient encounter procedure Hector Bauer MD Work Phone: OB/Gynecology Comment on above: Encounter for gyneco logical examination without abnormal finding (Primary Dx); Encounter for screening for malignant neoplasm of cervix; Family history of breast cancer in mother; Screen for STD (sexually transmitted disease); Need for prophylactic vaccination/inoculation against viral disease Start: 02-28-2022 End: 02-28-2022 Patient encounter status Hector Bauer MD Work Phone: OB/Gynecology Start: 02-22-2022 ambulatory LALITHA LIRIANO Facili ty:[facility] Start: 10-14-2019 End: 05-08-2024 Patient encounter status Hector Bauer MD Work Phone: [facility] Work Phone: Start: 10-10-2018 End: 06-19-2019 Patient requested procedure Michael Calix PT Work Phone: [facility] Procedures Date Procedure Procedure Detail Performing Clinician Start: 05-06-2024 Us pelvic nonobstetr ic real-time image complete Hector Bauer MD Work Phone: Start: 09-04-2023 Radiologic exam ches t 2 views Tabitha White PA Work Phone: Start: 08-08-2023 Radex spine lumbosac ral 2/3 views Elieser Lux APRN.PEOPLESOFT FUNCTIONAL ANALYST Work Phone: Start: 11-05-2022 CT of abdomen and pe lvis without contrast No Primary Care Physician Start: 07-20-2022 PFIZER-BIONTECH COVI D-19 PRIMARY SERIES VACCINE, AGE 12+ YR Alma Delia Chaidez PA-C Work Phone: Start: 07-20-2022 INFLUENZA VACCINE QUADRIVALENT 6 MO - 64 YRS IM Alma Delia Chaidez PA-C Work Phone: Start: 11-23-2019 Adult depression screening assessment Hector Bauer MD Work Phone: Start: 10-10-2018 End: 06-19-2019 H/O: section History of delivery, antepartum Michael Fifi PT Work Phone: Plan of Treatment Date Care Activity Detail Author Start: 06-12-2029 Urine microalbumin profile [facility] Start: 06-19-2025 End: 06-19-2025 Patient encounter procedure 06/19/2025 1:20 PM EDT Office Visit OB/Gynecology [address] [place] [address] Hector Bauer MD [address] [place] [address] 1st 2nd attempt LM to call back to reschedule /Annual OB/Gynecology Comment on above: 1st 2nd attempt LM t o call back to reschedule /Annual Start: 05-22-2025 End: 05-22-2025 Patient encounter procedure 05/22/2025 2:40 PM EDT Office Visit Family [facility] [address] [facility], [place] [id number] Elieser Lux APRN.PEOPLESOFT FUNCTIONAL ANALYST [address] [place], [place] [id number] physical Family [facility] Comment on above: physical Start: 05-18-2025 Influenza vaccination Influenza Vacc ine (#1) [facility] Start: 03-26-2025 End: 03-26-2025 Patient encounter procedure 03/26/2025 3:40 PM EDT Office Visit OB/Gynecology [address] [place] [address] Hector Bauer MD [address] [place], [place] [id number] Annual OB/Gynecology Comment on above: Annual Start: 02-28-2025 PAP TESTING PAP TESTING [facility] Start: 02-28-2025 Screening for malign ant neoplasm of cervix [facility] Start: 2024 Covid-19 Vaccine () Covid-19 Vaccine () [facility] Comment on above: Postponed from 05/18 (Declined at this time) Start: 05-18-2024 Covid-19 Vaccine () Covid-19 Vaccine () [facility] Start: 05-18-2024 Influenza vaccination Influenza Vacc ine (#1) [facility] Start: 04-08-2024 End: 04-08-2024 ambulatory 04/08/2024 3:30 PM EDT Procedure OB/Gynecology [address] [place] [address] PCB (post coital bleeding) [N93.0] OB/Gynecology Comment on above: PCB (post coital ble eding) [N93.0] Start: 03-25-2024 End: 03-25-2024 Patient encounter procedure 03/25/2024 3:40 PM EDT Office Visit OB/Gynecology [address] [place] [address] Hector Bauer MD [address] [place] [address] Annual OB/Gynecology Comment on above: Annual Start: 03-25-2024 End: 03-25-2025 US Pelvis PELVIC [facility] Anc Imaging Routine PCB (post coital bleeding) Expected: 03/25/2024, Expires: 03/25/2025 [facility] Work Phone: Comment on above: Expected: 03/25/2024 , Expires: 03/25/2025 Start: 03-19-2024 End: 03-19-2024 ambulatory 03/19/2024 4:45 PM EDT OT/PT/Speech Visit [facility] [address] [place] [address] Michael Calix, PT [address] [place] [address] M54.50,G89.29 (ICD-10-CM) - Chronic midline low back pain without sciatica [facility] Comment on above: M54.50,G89.29 (ICD-1 0-CM) - Chronic midline low back pain without sciatica Start: 03-11-2024 End: 03-11-2024 Patient encounter procedure 03/11/2024 4:00 PM EDT Office Visit OB/Gynecology [address] [place] [address] Hector Bauer MD [address] [place] [address] Annual OB/Gynecology Comment on above: Annual Start: 03-11-2024 End: 03-11-2024 ambulatory 03/11/2024 2:45 PM EDT OT/PT/Speech Visit [facility] [address] [place] [address] Jeannie Santos, NETWORK SECURITY ENGINEER [address] [place] [address] M54.50,G89.29 (ICD-10-CM) - Chronic midline low back pain without sciatica [facility] Comment on above: M54.50,G89.29 (ICD-1 0-CM) - Chronic midline low back pain without sciatica Start: 03-05-2024 End: 03-05-2024 ambulatory 03/05/2024 3:30 PM EDT OT/PT/Speech Visit [facility] [address] [place] [address] Jeannie Santos, NETWORK SECURITY ENGINEER [address] [place] [address] M54.50,G89.29 (ICD-10-CM) - Chronic midline low back pain without sciatica [facility] Comment on above: M54.50,G89.29 (ICD-1 0-CM) - Chronic midline low back pain without sciatica Start: 02-26-2024 End: 02-26-2024 ambulatory 02/26/2024 3:30 PM EDT OT/PT/Speech Visit [facility] [address] [place] [address] Jeannie Santos, NETWORK SECURITY ENGINEER [address] [place] [address] M54.50,G89.29 (ICD-10-CM) - Chronic midline low back pain without sciatica [place] [facility] Comment on above: M54.50,G89.29 (ICD-1 0-CM) - Chronic midline low back pain without sciatica Start: 05-18-2023 Influenza vaccination INFLUENZA (#1) [facility] Start: 11-12-2022 9vhpv vacc 2/3 dose sched im use HUMAN PAPILLOMAVIRUS 9-VALENT HPV IM Immunization/Injection Routine Need for prophylactic vaccination/inoculation against viral disease Expected: 11/12/2022 (Approximate) [facility] Work Phone: Comment on above: Expected: 11/12/2022 (Approximate) Start: 10-24-2022 End: 12-24-2022 25-hydroxyvitamin D3 [Mass/volume] in Serum or Plasma VITAMIN D 25 HYDROXY Lab Routine Vitamin D deficiency Expected: 10/24/2022, Expires: 12/24/2022 [facility] Work Phone: Comment on above: Expected: 10/24/2022 , Expires: 12/24/2022 Start: 09-15-2022 HPV VACCINE (3 - 3-d ose series) HPV VACCINE (3 - 3-dose series) [facility] Start: 09-14-2022 COVID-19 VACCINE (2 - Pfizer series) COVID-19 VACCINE (2 - Pfizer series) [facility] Start: 08-10-2022 COVID-19 VACCINE (2 - Pfizer series) COVID-19 VACCINE (2 - Pfizer series) [facility] Start: 08-10-2022 PFIZER SARS-COV-2 VACCINE 2D DOSE APPT PFIZER SARS-COV-2 VACCINE 2D DOSE APPT Procedures Routine Expected: 08/10/2022 [facility] Work Phone: Comment on above: Expected: 08/10/2022 Start: 07-20-2022 End: 09-19-2022 25-hydroxyvitamin D3 [Mass/volume] in Serum or Plasma [facility] Work Phone: Comment on above: Expected: 07/20/2022 , Expires: 09/19/2022 Start: 07-20-2022 End: 09-19-2022 Catecholamines 3 panel [Mass/volume] - Plasma [facility] Work Phone: Comment on above: Expected: 07/20/2022 , Expires: 09/19/2022 Start: 07-20-2022 End: 09-19-2022 CBC W Auto Differential panel - Blood [facility] Work Phone: Comment on above: Expected: 07/20/2022 , Expires: 09/19/2022 Start: 07-20-2022 End: 09-19-2022 Cobalamin (Vitamin B12) [Mass/volume] in Serum or Plasma [facility] Work Phone: Comment on above: Expected: 07/20/2022 , Expires: 09/19/2022 Start: 07-20-2022 End: 09-19-2022 Comprehensive metabolic 2000 panel - Serum or Plasma [facility] Work Phone: Comment on above: Expected: 07/20/2022 , Expires: 09/19/2022 Start: 07-20-2022 End: 09-19-2022 Folate [Mass/volume] in Serum or Plasma [facility] Work Phone: Comment on above: Expected: 07/20/2022 , Expires: 09/19/2022 Start: 07-20-2022 End: 09-19-2022 Hemoglobin A1c in Blood [facility] Work Phone: Comment on above: Expected: 07/20/2022 , Expires: 09/19/2022 Start: 07-20-2022 End: 09-19-2022 Hepatitis C virus Ab [Presence] in Serum [facility] Work Phone: Comment on above: Expected: 07/20/2022 , Expires: 09/19/2022 Start: 07-20-2022 End: 09-19-2022 LIPID PANEL, NONFASTING [facility] Work Phone: Comment on above: Expected: 07/20/2022 , Expires: 09/19/2022 Start: 07-20-2022 End: 09-19-2022 METANEPHRINES, FREE PLASMA [facility] Work Phone: Comment on above: Expected: 07/20/2022 , Expires: 09/19/2022 Start: 07-20-2022 End: 09-19-2022 Thyrotropin [Units/volume] in Serum or Plasma [facility] Work Phone: Comment on above: Expected: 07/20/2022 , Expires: 09/19/2022 Start: 07-20-2022 End: 09-19-2022 Thyroxine (T4) free [Mass/volume] in Serum or Plasma [facility] Work Phone: Comment on above: Expected: 07/20/2022 , Expires: 09/19/2022 Start: 05-18-2022 Influenza vaccination [facility] Start: 03-28-2022 HPV VACCINE (2 - 3-d ose series) HPV VACCINE (2 - 3-dose series) [facility] Start: 02-28-2022 End: 04-30-2022 Trichomonas vaginalis Ag [Presence] in Genital specimen by Immunoassay [facility] Work Phone: Comment on above: Expected: 02/28/2022 , Expires: 04/30/2022 Start: 10-10-2021 PAP TESTING PAP TESTING [facility] Start: 11-22-2020 Adult depression screening assessment DEPRESSION SCREENING [facility] Start: 2015 HEPATITIS C SCREENING HEPATITIS C SC REENING [facility] Start: 2011 PEDS TO ADULT TRANSI TION ANNUAL ASSESSMENT PEDS TO ADULT TRANSITION ANNUAL ASSESSMENT [facility] Start: 2009 PEDS TO ADULT TRANSI TION INITIAL DISCUSSION PEDS TO ADULT TRANSITION INITIAL DISCUSSION [facility] Start: 2007 MENINGOCOCCAL B: Consider based on risk (1 of 2 - Risk Bexsero 2-dose series) MENINGOCOCCAL B: Consider based on risk (1 of 2 - Risk Bexsero 2-dose series) [facility] Start: 2002 COVID-19 VACCINE (#1) COVID-19 VACCI NE (#1) [facility] Start: 1997 COVID-19 VACCINE (#1) COVID-19 VACCI NE (#1) [facility] Chlamydia trachomatis+Neisseria gonorrhoeae DNA [Presence] in Unspecified specimen by JUAN LUIS with probe detection GC/CHLAMYDIA DNA DET Lab Routine Screen for STD (sexually transmitted disease) 02/28/2022 4:39 PM EDT [facility] Work Phone: Chlamydia trachomatis+Neisseria gonorrhoeae DNA [Presence] in Unspecified specimen by JUAN LUIS with probe detection GONORRHEA/CHLAMYDIA NAAT Lab Routine PCB (post coital bleeding) 03/25/2024 3:58 PM EDT [facility] Microscopic observat ion [Identifier] in Vaginal fluid by Gram stain BACT/TONY VAG GRAM STAIN Microbiology Routine PCB (post coital bleeding) 03/25/2024 3:58 PM EDT [facility] PAP FLUID CERVICAL SCREENING PAP FLUID CERVICAL SCREENING Lab Routine Encounter for screening for malignant neoplasm of cervix 02/28/2022 4:40 PM EDT [facility] Work Phone: Patient Education ED Kidney Stone w/ Coli c [place] Work Phone: Patient referral [facility] Work Phone: End: 09-06-2024 Radex sacrum & coccyx minimum 2 views XR SACRUM/COCCYX 3V AP/LAT Radiology Routine Chronic bilateral low back pain without sciatica 1 Occurrences starting 08/08/2023 until 09/06/2024 [facility] Work Phone: Comment on above: 1 Occurrences starti ng 08/08/2023 until 09/06/2024 Radex sacrum & coccy x minimum 2 views XR SACRUM/COCCYX 3V AP/LAT Radiology Routine Chronic bilateral low back pain without sciatica 08/08/2023 4:27 PM EST [facility] Work Phone: Therapeutic prophylactic/dx injection subq/im THER/PROPH/DIAG INJ, SC/IM Procedures Routine Need for prophylactic vaccination/inoculation against viral disease Ordered: 02/28/2022 [facility] Work Phone: Comment on above: Ordered: 02/28/2022 TRICHOMONAS VAGINALI S NAAT TRICHOMONAS VAGINALIS NAAT Lab Routine PCB (post coital bleeding) 03/25/2024 3:58 PM EDT [facility] Immunizations Immunization Date Immunization Notes Care Provider Justin eldridge 09-12-2024 influenza virus vacc ine, unspecified formulation Landy Godfrey SALES REPRESENTATIVE GRAPHIC ART.PEOPLESOFT FUNCTIONAL ANALYST Work Phone: [facility] 2023 influenza, injectabl e, quadrivalent, contains preservative Elieser Lux SALES REPRESENTATIVE GRAPHIC ART.PEOPLESOFT FUNCTIONAL ANALYST Work Phone: [facility] 2023 influenza virus vacc ine, unspecified formulation Michael Calix PT Work Phone: [facility] 07-20-2022 COVID-19 original vaccine, age 12+ yr, monovalent ([employer]) Alma Delia Chaidez PA-C Work Phone: [facility] 07-20-2022 influenza, injectabl e, quadrivalent, contains preservative Alma Delia Chaidez PA-C Work Phone: [facility] 05-16-2022 Human Papillomavirus 9-valent vaccine Nurse Wstr Work Phone: [facility] 02-28-2022 Human Papillomavirus 9-valent vaccine Hector Bauer MD Work Phone: [facility] 07-28-2020 influenza, injectabl e, quadrivalent, contains preservative Hector Bauer MD Work Phone: [facility] Work Phone: 10-14-2019 influenza, injectabl e, quadrivalent, contains preservative Hector Bauer MD Work Phone: [facility] 02-26-2019 tetanus toxoid, redu khoi diphtheria toxoid, and acellular pertussis vaccine, adsorbed Hector Bauer MD Work Phone: [facility] 10-18-2017 influenza, injectabl e, quadrivalent, contains preservative Hector aBuer MD Work Phone: [facility] Work Phone: 10-11-2017 tetanus toxoid, redu khoi diphtheria toxoid, and acellular pertussis vaccine, adsorbed Hector Bauer MD Work Phone: [facility] 03-10-2016 tetanus toxoid, redu khoi diphtheria toxoid, and acellular pertussis vaccine, adsorbed Alma Delia Chaidez PA-C Work Phone: [facility] 12-10-2013 human papilloma viru s vaccine, quadrivalent Alma Delia Chaidez PA-C Work Phone: [facility] 06-12-2013 human papilloma viru s vaccine, quadrivalent Alma Delia Chaidez PA-C Work Phone: [facility] 04-03-2013 human papilloma viru s vaccine, quadrivalent Alma Delia Chaidez PA-C Work Phone: [facility] 01-31-2010 tetanus toxoid, redu khoi diphtheria toxoid, and acellular pertussis vaccine, adsorbed Alma Delia Chaidez PA-C Work Phone: [facility] 01-31-2010 varicella virus vaccine Ladonna ethane Chaidez PA-C Work Phone: [facility] 03-24-2002 diphtheria, tetanus toxoids and acellular pertussis vaccine Hector Bauer MD Work Phone: [facility] Work Phone: 03-24-2002 measles, mumps and rubella virus vaccine Hector Bauer MD Work Phone: [facility] Work Phone: 03-24-2002 poliovirus vaccine, inactivated Hector Bauer MD Work Phone: [facility] Work Phone: 09-15-1998 diphtheria, tetanus toxoids and acellular pertussis vaccine Hector Bauer MD Work Phone: [facility] Work Phone: 09-15-1998 haemophilus influenz ae type b vaccine, HbOC conjugate Hector Bauer MD Work Phone: [facility] Work Phone: 06-15-1998 measles, mumps and rubella virus vaccine Hector Bauer MD Work Phone: [facility] Work Phone: 06-15-1998 poliovirus vaccine, inactivated Hector Bauer MD Work Phone: [facility] Work Phone: 06-15-1998 varicella virus vaccine Mary Bauer MD Work Phone: [facility] Work Phone: 1997 diphtheria, tetanus toxoids and acellular pertussis vaccine Hector Bauer MD Work Phone: [facility] Work Phone: 1997 haemophilus influenz ae type b vaccine, HbOC conjugate Hector Bauer MD Work Phone: [facility] Work Phone: 1997 hepatitis B vaccine, pediatric or pediatric/adolescent dosage Hector Bauer MD Work Phone: [facility] Work Phone: 1997 diphtheria, tetanus toxoids and acellular pertussis vaccine Hector Bauer MD Work Phone: [facility] Work Phone: 1997 haemophilus influenz ae type b vaccine, HbOC conjugate Hector Bauer MD Work Phone: [facility] Work Phone: 1997 poliovirus vaccine, inactivated Hector Bauer MD Work Phone: [facility] Work Phone: 1997 diphtheria, tetanus toxoids and acellular pertussis vaccine Hector Bauer MD Work Phone: [facility] Work Phone: 1997 haemophilus influenz ae type b vaccine, HbOC conjugate Hector Bauer MD Work Phone: [facility] Work Phone: 1997 hepatitis B vaccine, pediatric or pediatric/adolescent dosage Hector Bauer MD Work Phone: [facility] Work Phone: 1997 poliovirus vaccine, inactivated Hector Bauer MD Work Phone: [facility] Work Phone: 1997 hepatitis B vaccine, pediatric or pediatric/adolescent dosage Hector Bauer MD Work Phone: [facility] Work Phone: Payers Date Payer Category Payer Self-pay [id number] 2022 Medicaid [id number] 2021 Unknown [id number] 2020 Medicaid [facility] MEDICAID [id number] 2020-Present [phone] [address] [place] [address] Medicaid [id number] 2020 Medicaid [id number] 1997 Unknown [id number] Unknown PARAMOUNT ADV MC D *DO NOT USE* [id number] Unknown [id number] Unknown [id number] Unknown [id number] Unknown [id number] Unknown [id number] Unknown [id number] Social History Date Type Detail Facility Start: 09-27-2017 End: 05-16-2022 Tobacco smoking status NHIS Never smoked tobacco [facility] Work Phone: Start: 09-27-2017 End: 05-16-2022 Tobacco use and exposure Smokeless tobacco non-user [facility] Work Phone: Start: 02-28-2022 End: 03-08-2023 Alcohol intake Ex-drinker (finding) [facility] Start: 09-11-2019 End: 11-23-2019 History SDOH Alcohol Frequency 1 [facility] Start: 11-23-2019 History SDOH Alcohol Std Drinks 98 [facility] Start: 02-28-2022 End: 2023 History SDOH Alcohol Comment rare [facility] Start: 09-11-2019 End: 11-23-2019 History SDOH Social Connections Phone 2 [facility] Start: 09-11-2019 History SDOH Social Connections Living 8 [facility] Start: 11-23-2019 History SDOH Physica l Activity MPS 12 [facility] Start: 11-23-2019 History SDOH Stress 4 [facility] Start: 11-23-2019 History SDOH Financial 5 [facility] Start: 09-11-2019 Education 11 [facility] Start: 1997 Sex Assigned At Not on file [facility] Start: 02-18-2022 End: 07-20-2022 Exposure to SARS-CoV-2 (event) Not sure [facility] Start: 11-05-2022 Tobacco smoking stat us NHIS Unknown if ever smoked [place] Start: 11-23-[address] [facility] Start: 1997 Sex Assigned At Female W [facility] Start: 09-11-2019 End: 03-08-2023 History of Social function [facility] Start: 09-11-2019 End: 03-08-2023 Social connection and isolation panel [facility] Do you belong to any clubs or organizations such as zoroastrian groups, unions, fraternal or athletic groups, or school groups? No [facility] Are you now , , , , never or living with a partner? Living with partner [facility] How often to you hav e a drink containing alcohol? Never [facility] Start: 08-18-[address] inks containing alcohol do you have on a typical day? Patient refused [facility] Do you feel stress - tense, restless, nervous, or anxious, or unable to sleep at night because your mind is troubled all the time - these days [OSQ] Rather much [facility] (I/We) worried wheth er (my/our) food would run out before (I/we) got money to buy more. Never true [facility] Start: 2023 End: 04-29-2025 Alcohol intake Current drinker of alcohol (finding) [facility] Do you feel stress - tense, restless, nervous, or anxious, or unable to sleep at night because your mind is troubled all the time - these days [OSQ] Very much [facility] NEGATED: Highlighted row [place] Functional Status Date Assessment Result Facility 09-19-2017 Are you deaf, or do you have serious difficulty hearing No 09/19/2017 9:19 PM Maris Joyce RN No [facility] 09-19-2017 Are you blind, or do you have serious difficulty seeing, even when wearing glasses No 09/19/2017 9:19 PM Maris Joyce, OG No [facility] 09-19-2017 Do you have serious difficulty walking or climbing stairs No 09/19/2017 9:19 PM Maris Joyce, OG No [facility] 09-19-2017 Do you have difficul ty dressing or bathing No 09/19/2017 9:19 PM Maris Joyce, OG No [facility] 09-19-2017 Because of a physica l, mental, or emotional condition, do you have difficulty doing errands alone such as visiting a physician's office or shopping No 09/19/2017 9:19 PM Maris Joyce, OG No [facility] Mental Status Date Assessment Result Facility 09-19-2017 Because of a physica l, mental, or emotional condition, do you have serious difficulty concentrating, remembering, or making decisions No 09/19/2017 9:19 PM Maris Joyce, OG No [facility] Clinical Notes 10-10-2018 to 04-29-2025 Landy Godfrey, BRANT.NOA - 04/29/2025 4:57 PM EDTTelephone Encounter - July Varela RN - 05/08/2024 12:51 PM EDTTelephone Encounter - July Varela RN - 05/08/2024 12:51 PM EDT Note Date & Type Note Facility 04-29-2025 Note HNO ID: [id number] Author: LANDY GODFREY APRN.NOA Service: ? Author Type: Nurse Practitioner Type: Progress Notes Filed: 04/29/2025 18:03 Note Text: URGENT CARE TOYFRANCIS Medina is a 29 year old female. Patient presents with: Mouth/Lip Problem: Lip sores x 1 week Mouth/Lip Problem Herpes Labialis: - Severe labial herpetic lesions, with new blisters appearing yesterday. - Initial lesion began healing before new blisters appeared. 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 - Previous episodes managed with Abreva, which provided some relief. - Using cold compresses and ibuprofen 600 mg every 4 hours with minimal relief for pain and swelling. - Reports increased frequency of cold sore occurrences with age. Review of Systems Ears/Nose/Mouth/Throat: (+) lip blisters, (+) lip pain, (+) lip swelling PAST MEDICAL HISTORY Diagnosis Date Asthma (HCC) childhood, no asthma attacks since age 15 Chronic back pain since delivery of first child Chronic hypertension affecting (HCC) 10/10/2018 Chronic hypertension affecting (HCC) 10/10/2018 10/10/18 - patient with elevated BP at 8 weeks which is c/w undiagnosed chtn, start 81mg aspirin at 12 weeks - Hector Bauer MD Chronic migraine without aura PMH - PAST MEDICAL HISTORY OF 04/30/2003 COLOR VISION NORMAL depression Renal stones PAST SURGICAL HISTORY Procedure Laterality Date DELIVERY ONLY 11/24/2017 DELIVERY ONLY 05/09/2019 RC/S low transverse REMOVAL GALLBLADDER 07/06/2020 [facility] SALPINGECTOMY COMPLETE/PARTIAL UNI/BI SPX Bilateral 05/09/2019 tubal ligation with filshie clips ALLERGIES Insect Venom MEDICATIONS valACYclovir (VALTREX) 1 gram tablet Take 1 tablet by mouth two times a day for 10 days. naproxen (NAPROSYN) 500 mg tablet Take 1 tablet by mouth two times a day with meals for 7 days. albuterol HFA (PROVENTIL HFA, VENTOLIN HFA) 90 mcg/actuation inhaler Inhale 2 Puffs as instructed every 4 hours as needed for wheezing/shortness of breath. (Patient not taking: Reported on 04/29/2025) omeprazole (PRILOSEC) 20 mg capsule Take 1 capsule by mouth daily before breakfast. 1/2 hr before meal. (Patient not taking: Reported on 04/29/2025) hydrOXYzine pamoate (VISTARIL) 25 mg capsule Take 25 mg by mouth three times daily as needed. (Patient not taking: Reported on 04/29/2025) MULTIVITAMIN ORAL Take by mouth once daily. (Patient not taking: Reported on 04/29/2025) FAMILY HISTORY Problem Relation Age of Onset Breast Cancer Mother now has brain cancer also Ovarian cancer Mother Hypertension Mother Brain Cancer Mother other (heart murmur) Father other (ADD) Father other (PSYCOTIC MOODS) Father Lung Cancer Father Depression Sister other (Other) Brother Half-brother Diabetes Maternal Grandmother Heart Maternal Grandfather Cancer Paternal Grandmother ovarian Heart Paternal Grandfather Diabetes Paternal Grandfather No Known Problems Daughter SOCIAL HISTORY[1] Objective BP 130/82 Pulse 96 Temp 37 ?C (98.6 ?F) (Tympanic) Resp 18 Wt (!) 141.6 kg (312 lb 2.7 oz) LMP 02/25/2024 (Approximate) SpO2 100% BMI 56.72 kg/m? Physical Exam Constitutional: General: She is not in acute distress. Appearance: Normal appearance. She is normal weight. She is not ill-appearing or toxic-appearing. HENT: Head: Normocephalic and atraumatic. Jaw: No trismus, tenderness or swelling. Comments: Vesicular lesion on lower lip No lymphadenopathy Mouth/Throat: Mouth: Oral lesions present. No injury, lacerations or angioedema. Cardiovascular: Pulses: Normal pulses. Pulmonary: Effort: Pulmonary effort is normal. Neurological: Mental Status: She is alert. { 1. Oral herpes (B00.2) - Severe outbreak with new lesions appearing yesterday; prior episodes managed with topical Abreva, but current episode is the worst to date. - No signs of secondary infection on exam; yellowing appearance attributed to inflammatory response of herpetic lesions. - Start valacyclovir 1g PO BID for 7 days refill provided for future episodes. - Advised to take valacyclovir with food. - Educated on the importance of initiating antiviral therapy at the first sign of recurrence (e.g., tingling sensation) for optimal efficacy. - Discussed that antivirals will halt viral replication and prevent new lesions, but healing will still take time. - Advised to continue supportive care with cold compresses and ibuprofen 600 mg every 6 hours as needed for pain and swelling. - Discussed option of naproxen for pain management. - Advised to follow up with primary care provider to discuss long-term management and PRN antiviral prescription. and Recording using [employer] software for draft documentation of the visit was discussed with the patient/authorized public relations representative; all questions wel (more content not included)... [facility] 04-29-2025 History of Presen t illness Narrative Images from the original note were not included. URGENT CARE TOY Menendez Robin Medina is a 29 year old female. Patient presents with: Mouth/Lip Problem: Lip sores x 1 week Mouth/Lip Problem Herpes Labialis: - Severe labial herpetic lesions, with new blisters appearing yesterday. - Initial lesion began healing before new blisters appeared. 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 - Previous episodes managed with Abreva, which provided some relief. - Using cold compresses and ibuprofen 600 mg every 4 hours with minimal relief for pain and swelling. - Reports increased frequency of cold sore occurrences with age. Review of Systems Ears/Nose/Mouth/Throat: (+) lip blisters, (+) lip pain, (+) lip swelling PAST MEDICAL HISTORY Diagnosis Date Asthma (HCC) childhood, no asthma attacks since age 15 Chronic back pain since delivery of first child Chronic hypertension affecting (HCC) 10/10/2018 Chronic hypertension affecting (HCC) 10/10/2018 10/10/18 - patient with elevated BP at 8 weeks which is c/w undiagnosed chtn, start 81mg aspirin at 12 weeks - Hector Bauer MD Chronic migraine without aura PMH - PAST MEDICAL HISTORY OF 04/30/2003 COLOR VISION NORMAL depression Renal stones PAST SURGICAL HISTORY Procedure Laterality Date DELIVERY ONLY 11/24/2017 DELIVERY ONLY 05/09/2019 RC/S low transverse REMOVAL GALLBLADDER 07/06/2020 [facility] SALPINGECTOMY COMPLETE/PARTIAL UNI/BI SPX Bilateral 05/09/2019 tubal ligation with filshie clips ALLERGIES Insect Venom MEDICATIONS valACYclovir (VALTREX) 1 gram tablet Take 1 tablet by mouth two times a day for 10 days. naproxen (NAPROSYN) 500 mg tablet Take 1 tablet by mouth two times a day with meals for 7 days. albuterol HFA (PROVENTIL HFA, VENTOLIN HFA) 90 mcg/actuation inhaler Inhale 2 Puffs as instructed every 4 hours as needed for wheezing/shortness of breath. (Patient not taking: Reported on 04/29/2025) omeprazole (PRILOSEC) 20 mg capsule Take 1 capsule by mouth daily before breakfast. 1/2 hr before meal. (Patient not taking: Reported on 04/29/2025) hydrOXYzine pamoate (VISTARIL) 25 mg capsule Take 25 mg by mouth three times daily as needed. (Patient not taking: Reported on 04/29/2025) MULTIVITAMIN ORAL Take by mouth once daily. (Patient not taking: Reported on 04/29/2025) FAMILY HISTORY Problem Relation Age of Onset Breast Cancer Mother now has brain cancer also Ovarian cancer Mother Hypertension Mother Brain Cancer Mother other (heart murmur) Father other (ADD) Father other (PSYCOTIC MOODS) Father Lung Cancer Father Depression Sister other (Other) Brother Half-brother Diabetes Maternal Grandmother Heart Maternal Grandfather Cancer Paternal Grandmother ovarian Heart Paternal Grandfather Diabetes Paternal Grandfather No Known Problems Daughter SOCIAL HISTORY[1] Objective BP 130/82 Pulse 96 Temp 37 C (98.6 F) (Tympanic) Resp 18 Wt (!) 141.6 kg (312 lb 2.7 oz) LMP 02/25/2024 (Approximate) SpO2 100% BMI 56.72 kg/m Physical Exam Constitutional: General: She is not in acute distress. Appearance: Normal appearance. She is normal weight. She is not ill-appearing or toxic-appearing. HENT: Head: Normocephalic and atraumatic. Jaw: No trismus, tenderness or swelling. Comments: Vesicular lesion on lower lip No lymphadenopathy Mouth/Throat: Mouth: Oral lesions present. No injury, lacerations or angioedema. Cardiovascular: Pulses: Normal pulses. Pulmonary: Effort: Pulmonary effort is normal. Neurological: Mental Status: She is alert. { 1. Oral herpes (B00.2) - Severe outbreak with new lesions appearing yesterday; prior episodes managed with topical Abreva, but current episode is the worst to date. - No signs of secondary infection on exam; yellowing appearance attributed to inflammatory response of herpetic lesions. - Start valacyclovir 1g PO BID for 7 days refill provided for future episodes. - Advised to take valacyclovir with food. - Educated on the importance of initiating antiviral therapy at the first sign of recurrence (e.g., tingling sensation) for optimal efficacy. - Discussed that antivirals will halt viral replication and prevent new lesions, but healing will still take time. - Advised to continue supportive care with cold compresses and ibuprofen 600 mg every 6 hours as needed for pain and swelling. - Discussed option of naproxen for pain management. - Advised to follow up with primary care provider to discuss long-term management and PRN antiviral prescription. and Recording using [employer] software for draft documentation of the visit was discussed with the patient/authorized public relations representative; all questions welcomed and answered. Patient/authorized public relations representative agreed to proceed Differential Diagnoses - ORal herpes is more likely for the following reason(s): suggested by H&P - Angioedema is less likely for the following reason(s): H&P not suggestive - cellulitis/asbcess is less likely for the following reason(s): H&P not suggestive Disposition The patient was discharged. OTC Medications were advised: NSAIDs [1] Social History Tobacco Use Smoking status: Never Smokeless tobacco: Never Vaping Use Vaping status: Never Used Substance Use Topics Alcohol use: Yes Comment: rare Drug use: No documented in this encounter [facility] 05-08-2024 Telephone encounter Note ----- Message from Hector Bauer MD sent at 05/08/2024 12:47 PM EDT ----- US overall normal. Shows possible adenomyosis. Patient can schedule follow up visit to discuss if she would like. Hector Bauer MD [facility] 05-08-2024 Miscellaneous Notes ----- Message from Hector Bauer MD sent at 05/08/2024 12:47 PM EDT ----- US overall normal. Shows possible adenomyosis. Patient can schedule follow up visit to discuss if she would like. Hector Bauer MD documented in this encounter [facility] 05-08-2024 Note HNO ID: [id number] Author: BRANDAN SUAREZ MD Service: ? Author Type: Physician Type: Progress Notes Filed: 05/08/2024 00:32 Note Text: The patient presents for requested ultrasound. Full report available in the Imaging tab in [employer] Brandan Suarez MD [facility] 05-08-2024 History of Presen t illness Narrative The patient presents for requested ultrasound. Full report available in the Imaging tab in [employer] Brandan Suarez MD documented in this encounter [facility] 03-25-2024 History of Presen t illness Narrative Cold Meat Cook offered: Patient declines. Robin is a 28 year old who presents for an annual gynecologic exam but has some concerns. Menses: cycles every 35 days and 5-7 days of flow. She reports flow can be heavy. Also she reports post-coital bleeding that is mostly the week after menses. Contraception: tubal sterilization HPV vaccine: Yes Last Pap: 03/09/2022 normal HPV: N/A History of abnormal pap: No Last mammogram: never OB History T2 L2 SAB0 IAB0 Ectopic0 Multiple0 Live Births2 [place] History LMP: 02/25/2024 (Approximate), Having periods Age at Menarche: Age at First : Age at Menopause: Line [place] History Comments: Sexual Activity: Yes; Male Contraception: Tubal Ligation PAST MEDICAL HISTORY Diagnosis Date Asthma childhood, no asthma attacks since age 15 Chronic back pain since delivery of first child Chronic hypertension affecting 10/10/2018 Chronic hypertension affecting 10/10/2018 10/10/18 - patient with elevated BP at 8 weeks which is c/w undiagnosed chtn, start 81mg aspirin at 12 weeks - Hector Bauer MD Chronic migraine without aura PMH - PAST MEDICAL HISTORY OF 04/30/2003 COLOR VISION NORMAL depression Renal stones PAST SURGICAL HISTORY Procedure Laterality Date DELIVERY ONLY 11/24/2017 DELIVERY ONLY 05/09/2019 RC/S low transverse REMOVAL GALLBLADDER 07/06/2020 [facility] SALPINGECTOMY COMPLETE/PARTIAL UNI/BI SPX Bilateral 05/09/2019 tubal ligation with filshie clips FAMILY HISTORY Problem Relation Age of Onset Breast Cancer Mother now has brain cancer also Ovarian cancer Mother Hypertension Mother Brain Cancer Mother other (heart murmur) Father other (ADD) Father other (PSYCOTIC MOODS) Father Lung Cancer Father Depression Sister other (Other) Brother Half-brother Diabetes Maternal Grandmother Heart Maternal Grandfather Cancer Paternal Grandmother ovarian Heart Paternal Grandfather Diabetes Paternal Grandfather No Known Problems Daughter SOCIAL HISTORY Social History Tobacco Use Smoking status: Never Smokeless tobacco: Never Vaping Use Vaping Use: Never used Substance Use Topics Alcohol use: Yes Comment: rare Drug use: No REVIEW OF SYSTEMS Abdomen: No abdominal pain, nausea, vomiting, diarrhea, or constipation. No bloating, early satiety, indigestion, or increased flatulence. Bladder: No dysuria, gross hematuria, urinary frequency, urinary urgency, or incontinence. Breast: No breast lumps, nipple d/c, overlying skin changes, redness or skin retraction. Allergies and current medication updated:Yes EXAM: BP 138/82 Ht 5' 2.205 (1.58m) Wt 289 lb 6.4 oz (131.3kg) LMP 02/25/2024 BMI 52.58 kg/(m^2). GENERAL: pleasant, female in no apparent distress BREAST: soft, non-tender, symmetric, no dominant mass, normal nipple-areolar complex, no lymphadenopathy, and no nipple discharge CHEST: Normal inspiratory effort ABDOMEN: soft, non-tender, and no masses PELVIC: external genitalia normal, normal Bartholin's glands, urethra, Ewa Gentry's glands, no vulvar lesions, no cervical lesions, good vaginal support, physiologic discharge present, normal appearing perineal body and perianal region BIMANUAL: uterus normal size, shape and consistency, no adnexal masses, and non-tender; exam limited by obesity RECTOVAGINAL: deferred. NEURO: alert and oriented x3,exam grossly non-focal EXTREMITIES: normal ASSESSMENT/PLAN: 1) Health maintenance: Pap up to date. Nutrition, exercise and routine health maintenance exams reviewed. HPV vaccine: completed series 2) Contraception: tubal sterilization. Contraceptive options reviewed and information provided. 3) Post coital bleeding - check pelvic US and vaginal infection panel 4) Follow up one year or sooner as needed Medical Decision Making: Problems: Moderate: New problem with uncertain prognosis Data: Unique test(s) ordered: 3+ Risk: Low: Low risk from testing/treatment Medical Decision Making Level: 4 - Moderate Hector Bauer MD documented in this encounter [facility] 03-19-2024 History of Presen t illness Narrative Images from the original note were not included. Episode Visit Count: 5 Therapist That Will Accept/Oversee The Plan Of Care: Michael Calix PT Start of Care Date: 01/03/24 Onset Date: 11/04/23 (chronic low back pain since July 2023 that worsened in October 2023 to include LEs) Plan of Care Certification Date: 03/19/24 Next Certification Due Date: 03/19/24 Patient Identified by Name and Date of : Yes [facility]ER[facility]Y PHYSICAL THERAPY DISCONTINUANCE OF CARE PLAN OF CARE UPDATE: Assessment: Robin Medina is discontinued from Physical Therapy services due to maximal benefit.. Patient was seen for 5 visits from Start of Care Date: 01/03/24 to 03/19/2024 and treatment included: Therapeutic exercise, Manual therapy, Self-jail management, Patient/Family/Caregiver Education, and Body mechanics training. Updated: 02/19/24 and 03/19/24 Goals for Episode of Care: created on 01/03/24 through 02/14/24 Independent in home exercises. - MET Patient will decrease pain to 0/10 at rest and with functional activities to allow patient to improve bending, lifting, standing tolerance for ADLs, and stairs. - Partially MET Restore pain-free lumbar ROM to WFL to allow for improved bending and lifting at work. - MET Stand / Walk without limitations, without pain/symptoms. - Partially MET Sleep through night without pain/symptoms. - Not MET Patient will increase strength of core/postural muscles to WFL to allow for improve ability to complete ADLs and improve ability to negotiate stairs. - Not MET Patient Goals: eliminate pain and learn how to self manage - Partially MET SUBJECTIVE: Pt reports that overall her low back pain is better with decreased pain. She reports that the intensity of pain is less. She reports that the switch to flexion directional preference has been successful. She reports that her current HEP helps to decrease symptoms but does not eliminate the pain. She reports compliance with HEP 1-2x day. She reports that the extension exercises helped but only for a very short period of time. She reports that ext did not make it worse but flexion provides lasting relief. She reports decreased frequency of pain in legs but that she still gets some pain in L LB and iliac crest area. She reports that bending, lifting and standing are all improved but still painful at times. She denies any improvements on stairs or with sleeping. Pain: Pain Pain Level: 3 Pain Location: Low Back/Lumbar Spine - Left Description: Sore, Tightness Frequency: Intermittent Post Treatment Pain Post Treatment Pain Level: No Change PROMIS Scales 03/19/2024 02/19/2024 01/03/2024 Higher is Better Phys Func - Score 39 (moderate dysfunction) 45 (within normal limits) Phys Func - Percentile 14 31 Self-Eff Symptom - Score 39 (Low) 37 (Low) 40 (Average) Self-Eff Symptom - Percentile 14 10 16 T-scores: mean of general population = 50. 5 points is clinically meaningfully difference Percentiles provide an indication of how the patient's score ranks in relation to the general population. Higher percentile rankings indicate better function/quality of life. 50th percentile is the average of the general population and indicates half of respondents had a worse score. OBJECTIVE MEASURES WITH LEVEL OF FUNCTION: Lumbar Spine AROM Lumbar Flexion: Normal Lumbar Extension: Normal Lumbar R Side-Bend: Normal Lumbar L Side-Bend: Normal Lumbar R Rotation: Normal Lumbar L Rotation: Normal LE Strength Trunk Strength: Improved functionally TREATMENT: Therapeutic Exercise: 1: Seated, repeated lumbar flexion reviewed for HEP and continuation encouraged. 2: SKTC 3x30 seconds B reviewed for HEP and continuation encouraged to tolerance. 3: DKTC 3x30 seconds reviewed for HEP and continuation encouraged. 4: LTR 2x10 reviewed for HEP and continuation encouraged to tolerance 5: Child's Pose reviewed for HEP and continuation encouraged to tolerance. 6: *supine crunches in small range 2x10 7: *supine posterior pelvic tilt held with B alt marching 2x10 with emphasis on maintaining posterior pelvic tilt. (Stabilizer Pressure Biofeedback used to assist) Skilled Intervention: Patient was educated in proper exercise technique and purpose for exercises. Reviewed and educated patient on additions/changes for home exercise program as above (*). Skilled judgment was used in selection of appropriate interventions. Provided written instruction for home exercise program to facilitate proper performance and compliance. Correct performance of therapeutic exercises was facilitated with verbal, visual, and tactile cuing. Patient education as noted. Billing Therapeutic Exercise Treatment Minutes: 28 Skilled Treatment Time Minutes (timed and untimed codes): 28 Total Session Time (minutes): 28 Session Start Time : 1650 Session Stop Time : 1718 Michael Calix PT Program_ID:[id number] Access Code: [email or web address] URL: [email or web address] Date: 03-19-2024 Prepared By: Michael Calix Program Notes Exercises - Supine Single Knee to Chest Stretch - 2 x daily - 7 x weekly - 1 sets - 3 reps - Supine Double Knee to Chest - 2 x daily - 7 x weekly - 1 sets - 3 reps - Seated Flexion Stretch - 2 x daily - 7 x weekly - 2 sets - 10 reps - Child's Pose with Sidebending - 1 x daily - 7 x weekly - 2 sets - 10 reps - Supine Lower Trunk Rotation - 2 x daily - 7 x weekly - 2 sets - 10 reps - Curl Up with Arms Crossed - 2 x daily - 7 x weekly - 2 sets - 10 reps - Supine March with Posterior Pelvic Tilt - 2 x daily - 7 x weekly - 2 sets - 10 reps documented in this encounter [facility] 03-05-2024 History of Presen t illness Narrative Program_ID:[id number] Access Code: [email or web address] URL: [email or web address] Date: 03-05-2024 Prepared By: Michael Calix Program Notes Exercises - Supine Single Knee to Chest Stretch - 2 x daily - 7 x weekly - 1 sets - 3 reps - Supine Double Knee to Chest - 2 x daily - 7 x weekly - 1 sets - 3 reps - Seated Flexion Stretch - 2 x daily - 7 x weekly - 2 sets - 10 reps - Child's Pose with Sidebending - 1 x daily - 7 x weekly - 2 sets - 10 reps - Supine Lower Trunk Rotation - 2 x daily - 7 x weekly - 2 sets - 10 reps Episode Visit Count: 4 Therapist That Will Accept/Oversee The Plan Of Care: Michael Calix PT Start of Care Date: 01/03/24 Onset Date: 11/04/23 (chronic low back pain since July 2023 that worsened in October 2023 to include LEs) Plan of Care Certification Date: 02/19/24 Next Certification Due Date: 03/18/24 Patient Identified by Name and Date of : Yes REHABILITATION AND SPORTS THERAPY PHYSICAL THERAPY TREATMENT NOTE ASSESSMENT: Robin Medina tolerated the session with fatigue and expected muscle soreness. She demonstrated improvements in tolerance to exercise without increase in pain with switch to flexion directional preference. The patient will continue to benefit from ongoing skilled physical therapy to progress toward set goals. PLAN FOR NEXT VISIT: Asses response to flexion directional preference. Trial glute stretching in supine SUBJECTIVE: Pt reports that she is doing good today. Her L hip is sore today. Pt reports that if she lays on her stomach for 20 mintues, then her back hurts really bad and she has a hard time moving. Pt states that after traction she felt good, then it hurt for over 30 minutes and could not find a comfortable position. Pain: Pain Pain Level: 2 Pain Location: Low Back/Lumbar Spine - Right, Low Back/Lumbar Spine - Left Description: Pressure, Sharp Post Treatment Pain Post Treatment Pain Level: 2 Post Treatment Pain Location: Low Back/Lumbar Spine - Left, Low Back/Lumbar Spine - Right Post Treatment Symptoms: At end of session pt stated, my hip feels looser , denied any increase in LBP OBJECTIVE MEASURES WITH LEVEL OF FUNCTION: Good stretch felt with LTR TREATMENT: Therapeutic Exercise: 1: *Seated, repeated lumbar flexion x10 (no pain, good stretch felt) 2: Seated lumbar flexion roll out on 85 cm physioball 2x10 3: Seated lumbar flexion roll out to the L on physioball 2x10 (good stretch on R side , no pain) 4: Seated lumbar flexion roll out on 85 cm physioball x 5, discontinued due to increased pinching on the R side. 5: *SKTC 3x30 seconds B 6: *DKTC 3x30 seconds 7: *LTR 2x10 8: *Child's Pose x2 (given for HEP, more reps not completed due to pt's hands sticking to mat table and motion not able to be fluid) Skilled Intervention: Patient was educated in proper exercise technique and purpose for exercises. Reviewed and educated patient on additions/changes for home exercise program as above (*). Skilled judgment was used in selection of appropriate interventions. Provided written instruction for home exercise program to facilitate proper performance and compliance. Correct performance of therapeutic exercises was facilitated with verbal and visual cuing. Self-Fpc Management: 1: Education and rationale for switching to trial flexion directional preference with anatomaical structures discussed Skilled Intervention: Skilled judgment in the selection of proper modification for activity of daily living/home management based on clinical presentation, deficits, and needs. Activity progression based on professional judgement. Billing Therapeutic Exercise Treatment Minutes: 35 Self-Care/Home Management Treatment Minutes: 8 Skilled Treatment Time Minutes (timed and untimed codes): 43 Total Session Time (minutes): 43 Session Start Time : 1530 Session Stop Time : 1613 LEIGHANN Roblero PT documented in this encounter [facility] 02-26-2024 History of Presen t illness Narrative Episode Visit Count: 3 Therapist That Will Accept/Oversee The Plan Of Care: Michael Calix PT Start of Care Date: 01/03/24 Onset Date: 11/04/23 (chronic low back pain since July 2023 that worsened in October 2023 to include LEs) Plan of Care Certification Date: 02/19/24 Next Certification Due Date: 03/18/24 Patient Identified by Name and Date of : Yes REHABILITATION AND SPORTS THERAPY PHYSICAL THERAPY TREATMENT NOTE ASSESSMENT: Robin Medina tolerated the session with decreased symptoms. She demonstrated improvements in L side low back pain with QL stretching. The patient will continue to benefit from ongoing skilled physical therapy to progress toward set goals. PLAN FOR NEXT VISIT: Asses response to manual traction and continue prn. Continue with core stretching and strengthening with extension directional preference. SUBJECTIVE: Pt states that she tried to do a round of her exercises at 1:00 p.m. today, but then got a sharp pain just below her L buttock while laying prone, had just completed prone hip extensions. Pt states that towards the end of doing her prone press ups that it starts to irritate her low back. She reports that her R side feels tighter than the L side of her low back. Pain: Pain Pain Level: 4 Pain Location: Low Back/Lumbar Spine - Right, Low Back/Lumbar Spine - Left Description: Pressure, Sharp Post Treatment Pain Post Treatment Pain Level: 3 Post Treatment Pain Location: Low Back/Lumbar Spine - Left, Low Back/Lumbar Spine - Right OBJECTIVE MEASURES WITH LEVEL OF FUNCTION: Notable soft tissue restriction on L paraspinals at approximately L3-L4 level. TREATMENT: Therapeutic Exercise: 1: *Seated scapular retractions x10, then 2x10 with BTB (BTB issued for HEP) 2: prone lying x3 minutes 3: prone on elbows x3 minutes 4: prone press ups 2x10 (tole to complete in small range for HEP and move hands forward to decrease irritation on low back.) 5: *L QL stretch in sitting 3x30 seconds Skilled Intervention: Patient was educated in proper exercise technique and purpose for exercises. Reviewed and educated patient on additions/changes for home exercise program as above (*). Skilled judgment was used in selection of appropriate interventions. Correct performance of therapeutic exercises was facilitated with verbal and visual cuing. Manual Therapy: 1: Manual lumbar traction with BLE elevated on stool with caudal pull to tolerance x 10 minutes. (felt good while in traction, had a slight twinge on L side low back when releasing traction, but momentary and subsided upon sitting up.) Skilled Intervention: Manual skills to improve joint mobility, ROM, and decrease pain. Utilized anatomy knowledge of the therapist, and assessment of patient's response to intervention. Billing Therapeutic Exercise Treatment Minutes: 40 Manual TherapyTreatment Minutes: 10 Skilled Treatment Time Minutes (timed and untimed codes): 50 Total Session Time (minutes): 50 Session Start Time : 1529 Session Stop Time : 1619 Jeannie Santos, LEIGHANN Calix PT documented in this encounter [facility] 02-19-2024 History of Presen t illness Narrative Episode Visit Count: 2 Therapist That Will Accept/Oversee The Plan Of Care: Michael Calix PT Start of Care Date: 01/03/24 Onset Date: 11/04/23 (chronic low back pain since July 2023 that worsened in October 2023 to include LEs) Plan of Care Certification Date: 02/19/24 Next Certification Due Date: 03/18/24 Patient Identified by Name and Date of : Yes REHABILITATION AND SPORTS THERAPY PHYSICAL THERAPY PROGRESS REPORT PLAN OF CARE UPDATE: Assessment: Robin Medina demonstrates minimal improvement in standing, bending, lifting, and working. She has progressed toward goals. Patient continues to present with impairments in ADL's, independence in exercise, overall function, posture, range of motion, strength, and symptom management that interfere with stair negotiation, sleeping, working, bending, lifting Current prognosis is Excellent due to: current objective clinical presentation, good overall health status, within-session changes, good support system/ coping skills. She will benefit from continued skilled therapy services to meet the updated goals for this plan of care as noted below. Updated: 02/19/24 Goals for Episode of Care: created on 01/03/24 through 02/14/24 Independent in home exercises. - Partially MET, will continue Patient will decrease pain to 0/10 at rest and with functional activities to allow patient to improve bending, lifting, standing tolerance for ADLs, and stairs. - Partially MET, will continue Restore pain-free lumbar ROM to WFL to allow for improved bending and lifting at work. - Partially MET, will continue Stand / Walk without limitations, without pain/symptoms. - Not MET, will continue Sleep through night without pain/symptoms. - Not MET, will continue Patient will increase strength of core/postural muscles to WFL to allow for improve ability to complete ADLs and improve ability to negotiate stairs. - Not MET, will continue, just initiated Patient Goals: eliminate pain and learn how to self manage - Partially MET, will continue Patient Goals: eliminate pain and learn how to self manage Planned Interventions, Frequency, and Duration: 1x/week, 4 weeks Total Number of Visits Planned: 4 Patient to be seen for Therapeutic exercise (55531), Neuromuscular re-education (96687), Manual therapy (34494), Therapeutic activities (69082), Self-jail management (29423), Gait Training (21770), Patient/Family/Caregiver Education, Body Mechanics Training, Functional training PLAN FOR NEXT VISIT: Review, correct and progress HEP to tolerance. Continue with postural stretching and strengthening with extension directional preference. Continue with postural correction, body mechanics education and proper lifting technique, especially when at work. Consider manual lumbar belt traction prn. Classification Pain Mechanism Classification: Neuropathic Low Back Pain Classification: Symptom Modulation SUBJECTIVE: Pt reports that overall she is better with her LE symptoms occurring less frequent. Because of the decrease in frequency of LE symptoms, she rates her overall condition as better. She reports that she has been compliant with HEP 2x day most days. She reports that bending, lifting and standing tolerance are unchanged since evaluation 01/03/24. She denies any improvements with sleeping or with stairs. Patient Goals: eliminate pain and learn how to self manage Functional Limitations: stair negotiation, sleeping, working, bending, lifting Prior Level of Function: Independent without limitations Intake Information: Prescription present Previous Treatment: None Pain: Pain Pain Level: 4 Pain Location: Low Back/Lumbar Spine - Right, Low Back/Lumbar Spine - Left Description: Pressure, Sharp Frequency: Intermittent Post Treatment Pain Post Treatment Pain Level: 3 (Better and an easy 3/10) Post Treatment Pain Location: Upper Arm - Left, Low Back/Lumbar Spine - Right, Low Back/Lumbar Spine - Left Post Treatment Pain Description: (better) Post Treatment Symptoms: After session, pt reported feeling better than at the start of session. PROMIS Scales 02/19/2024 01/03/2024 12/31/2023 Higher is Better Phys Func - Score 45 (within normal limits) 45 (within normal limits) Phys Func - Percentile 31 31 Self-Eff Symptom - Score 37 (Low) 40 (Average) Self-Eff Symptom - Percentile 10 16 T-scores: mean of general population = 50. 5 points is clinically meaningfully difference Percentiles provide an indication of how the patient's score ranks in relation to the general population. Higher percentile rankings indicate better function/quality of life. 50th percentile is the average of the general population and indicates half of respondents had a worse score. OBJECTIVE MEASURES WITH LEVEL OF FUNCTION: Lumbar Spine AROM Lumbar Flexion: Normal Lumbar Extension: Normal, Increased pain Lumbar R Side-Bend: Normal Lumbar L Side-Bend: Normal Lumbar R Rotation: Normal Lumbar L Rotation: Normal LE Strength Trunk Strength: Not addressed until today. Special Tests - Hip and Spine Hip and Spine Special Tests: Slump Test Slump Test: Right Positive, Left Positive TREATMENT: Therapeutic Exercise: 1: *standing lumbar extension 2x10 2: prone lying x3 minutes 3: prone on elbows x3 minutes 4: prone press ups 2x10 5: *prone B hip ext SLR 2x10 6: *kneeling planks 3x20 seconds 7: bridging 2x10 8: crunches 2x10 9: supine isometric abdominals via shoulder extension 2x10 with 2 second holds 10: supine posterior pelvic tilts 2x10 with lots of cues and correction on form and minimizing HS compensation. Skilled Intervention: Patient was educated in proper exercise technique and purpose for exercises. Reviewed and educated patient on additions/changes for home exercise program as above (*). Skilled judgment was used in selection of appropriate interventions. Provided written instruction for home exercise program to facilitate proper performance and compliance. Correct performance of therapeutic exercises was facilitated with verbal and visual cuing. Patient education as noted. Billing Therapeutic Exercise Treatment Minutes: 30 Skilled Treatment Time Minutes (timed and untimed codes): 30 Total Session Time (minutes): 30 Session Start Time : 1455 Session Stop Time : 1525 Michael Calix PT Program_ID:[id number] Access Code: [email or web address] URL: [email or web address] Date: 02-19-2024 Prepared By: Michael Cailx Program Notes Exercises - Lying Prone - 3 x daily - 7 x weekly - sets - reps - Static Prone on Elbows - 3 x daily - 7 x weekly - sets - reps - Prone Press Up - 3 x daily - 7 x weekly - 2 sets - 10 reps - Standing Lumbar Extension - 2 x daily - 7 x weekly - 2 sets - 10 reps - Prone Hip Extension - 2 x daily - 7 x weekly - 2 sets - 10 reps - Kneeling Plank on Forearms with Scapular Protraction Retraction AROM - 2 x daily - 7 x weekly - 2 sets - 10 reps documented in this encounter [facility] 01-03-2024 History of Presen t illness Narrative Episode Visit Count: 1 Therapist That Will Accept/Oversee The Plan Of Care: Michael Calix PT Start of Care Date: 01/03/24 Onset Date: 11/04/23 (chronic low back pain since July 2023 that worsened in October 2023 to include LEs) Plan of Care Certification Date: 01/03/24 Next Certification Due Date: 02/14/24 Patient Identified by Name and Date of : Yes REHABILITATION AND SPORTS THERAPY PHYSICAL THERAPY EVALUATION PLAN OF CARE: Assessment: Robin Medina presents with chief complaint of low back and intermittent B LE pains that interfere with stair negotiation, sleeping, working, bending, lifting. She presents with impairments in ADL's, independence in exercise, overall function, posture, range of motion, strength, symptom management, and tissue tenderness. PROMIS (Patient-Reported Outcomes Measurement Information System) scores were reviewed and identified as within normal limits. Prognosis for therapy is Excellent due to: current objective clinical presentation, good overall health status, within-session changes, good support system/ coping skills. She will benefit from skilled therapy services to meet the goals established for this plan of care as noted below. Classification Low Back Pain Classification: Symptom Modulation Goals for Episode of Care: created on 01/03/24 through 02/14/24 Independent in home exercises. Patient will decrease pain to 0/10 at rest and with functional activities to allow patient to improve bending, lifting, standing tolerance for ADLs, and stairs. Restore pain-free lumbar ROM to WFL to allow for improved bending and lifting at work. Stand / Walk without limitations, without pain/symptoms. Sleep through night without pain/symptoms. Patient will increase strength of core/postural muscles to WFL to allow for improve ability to complete ADLs and improve ability to negotiate stairs. Patient Goals: eliminate pain and learn how to self manage Planned Interventions, Frequency, and Duration: Current Frequency: 2x/week Duration: 6 weeks Total Number of Visits Planned: 12 Planned Treatment Interventions: Therapeutic exercise (04388), Neuromuscular re-education (67218), Manual therapy (65175), Therapeutic activities (39017), Self-jail management (42685), Gait Training (12017), Patient/Family/Caregiver Education, Body Mechanics Training, Functional training PLAN FOR NEXT VISIT: Review, correct and progress HEP to tolerance. Continue with postural stretching and strengthening with extension directional preference. Continue with postural correction, body mechanics education and proper lifting technique, especially when at work. Consider manual lumbar belt traction prn. Patient demonstrates good understanding of plan of care and treatment. The above goals and plan of care were discussed and agreed upon by patient/family. SUBJECTIVE: Pt reports that she has constant and chronic low back pain that is all the way across her back. She reports that this pain is constant and varies in intensity. She also reports intermittent radiating B LE pains that occur 2-3x week. She reports that LE symptoms are not in both legs simultaneously. She reports that low back pain is chronic and has been present for several years. She reports that LE pains began in October. 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 Cancer Clinical Reasoning: No identified risk factors. Infection Clinical Reasoning: No identified risk factors. Cauda Equina Syndrome Clinical Reasoning: No identified risk factors. Red Flags - Cervical Cancer Clinical Reasoning: No identified risk factors. Infection Clinical Reasoning: No identified risk factors. Spine History Symptoms Location at Onset: Back Symptoms Since Onset: Worsening Pain is Worse Always: Prolonged positions, Bending, Standing (stairs, lifting) Pain is Better Sometimes: No position Previous Episodes: Yes Previous Spine Episodes: chronic low back pain with recent onset of LE symptoms Sleeping Position: Prone - head either right or left, Side lying right, Side lying left (pt prefers prone) Sleep Affected by Pain: Pain keeps from falling asleep, Pain awakens Pain: Pain Pain Level: 3 (10 currently) Pain Location: Low Back/Lumbar Spine - Right, Low Back/Lumbar Spine- Midline, Low Back/Lumbar Spine - Left, Leg - Right, Leg - Left Description: Pressure, Stabbing, Sore, Aching Frequency: Continuous (constant but varies in intensity) Detailed Pain Score: Yes Worst Pain Level: 6 Average Pain Level: 4 Best Pain Level: 3 Post Treatment Pain Post Treatment Pain Level: No Change Post Treatment Symptoms: After session pt reported a slight increase in soreness but denied any significant increase in pain. Pain Mechanism Classification: Neuropathic PROMIS Scales 01/03/2024 12/31/2023 Higher is Better Phys Func - Score 45 (within normal limits) Phys Func - Percentile 31 Self-Eff Symptom - Score 40 (Average) Self-Eff Symptom - Percentile 16 T-scores: mean of general population = 50. 5 points is clinically meaningfully difference Percentiles provide an indication of how the patient's score ranks in relation to the general population. Higher percentile rankings indicate better function/quality of life. 50th percentile is the average of the general population and indicates half of respondents had a worse score. OBJECTIVE MEASURES WITH LEVEL OF FUNCTION: Posture / Alignment Posture: Forward head, Increased thoracic kyphosis, Rounded shoulders Reflexes - Lower Extremity R Patellar: Normal L Patellar: Normal Spine Observations R Lumbar Spine Palpation Tenderness: Greater trochanter, Piriformis (midline) L Lumbar Spine Palpation Tenderness: Piriformis, Greater trochanter (midline) Sensation - Lumbar Sensation: Grossly Intact Lumbar Spine AROM Lumbar Flexion: Normal, Increased pain Lumbar Extension: Normal Lumbar R Side-Bend: Normal, Increased pain Lumbar L Side-Bend: Normal, Increased pain Lumbar R Rotation: Normal, Increased pain Lumbar L Rotation: Normal, Increased pain LE Strength Trunk Strength: Pt's postural deficits, job demands, reported chronicity of symptoms and her reported functional difficulties indicate that she will benefit from increased core and postural strength. R LE Strength: No asymmetrical myotomal weakness detected in B LEs at the time. L LE Strength: No asymmetrical myotomal weakness detected in B LEs at the time. Special Tests - Hip and Spine Hip and Spine Special Tests: SLR Test SLR Test: Right Positive, Left Positive Gait Gait Observation: normal Vitals BP: 133/86 Pulse: 80 Education: Education Learning Preferences: Demonstration, Explanation, Performance, Printed Materials Barriers: None Learning/educational needs: Lifestyle changes, Health promotion, Home exercise program, Plan of Care, Posture, Body Mechanics Education Provided: Yes, see treatment interventions for education provided Education Provided To: Patient Education Mode/Type: Demonstration, Literature/Printed Materials, Explanation/Discussion, Performance Response to Education/Teach Back: States/Identifies, Return Demonstration, Requires Review/Additional Education TREATMENT: PT Treatment Interventions: Therapeutic Exercise, Self-Fpc Management Evaluation Therapeutic Exercise: 1: Pt was educated on the concept of centralization versus peripheralization of symptoms and all precautions regarding HEP completion. She was advised to stop if pain increases. 2: *prone lying x3 minutes 3: *prone on elbows x3 minutes 4: *prone press ups 2x10 Skilled Intervention: Patient was educated in proper exercise technique and purpose for exercises. Reviewed and educated patient on additions/changes for home exercise program as above (*). Skilled judgment was used in selection of appropriate interventions. Provided written instruction for home exercise program to facilitate proper performance and compliance. Correct performance of therapeutic exercises was facilitated with verbal, visual, and tactile cuing. Patient education as noted. Self-Fpc Management: 1: Pt was edcuated extensively on the anatomy of her lumbar spine, likely etiology of symptoms and rationale for proposed PT plan of care. Pictures were used to clarify all education. She was educated on disc mechanics and her directional preference. She was educated on the critical importance of postural correction, proper body mechanics and proper lifting technique. She was educated on the 10x force multiplication factor that exists with poor lifting technique. She was educated on how to apply these concepts to her work situation. Handout provided on postural correction, body mechanics and lifting technique. Skilled Intervention: Skilled judgment in the selection of proper modification for activity of daily living/home management based on clinical presentation, deficits, and needs. Educated the patient regarding recommendations and provided written instruction to facilitate compliance. Provided written instruction for activities of daily living techniques to facilitate proper performance and compliance. Reviewed patient specific diagnosis in relation to activities of daily living/home management. Billing * Evaluation Low Complexity: 1 Unit Therapeutic Exercise Treatment Minutes: 10 Self-Care/Home Management Treatment Minutes: 17 Skilled Treatment Time Minutes (timed and untimed codes): 47 Total Session Time (minutes): 47 Session Start Time : 1503 Session Stop Time : 1550 Michael Calix PT Program_ID:[id number] Access Code: [email or web address] URL: [email or web address] Date: 01-03-2024 Prepared By: Michael Calix Program Notes Exercises - Lying Prone - 3 x daily - 7 x weekly - sets - reps - Static Prone on Elbows - 3 x daily - 7 x weekly - sets - reps - Prone Press Up - 3 x daily - 7 x weekly - 2 sets - 10 reps documented in this encounter [facility] 12-31-2023 Note HNO ID: [id number] Author: JOSELINE MOSLEY PA-C Service: ? Author Type: Physician Web Press Operator Helper Offset Type: Progress Notes Filed: 12/31/2023 14:45 Note Text: Wellness Consultation Ms.Star Cody Medina is a 28 year old female is here for a wellness and preventive medicine initial consultation. Consultation requested by Elieser Lux CNP for an opinion regarding weight management. My final recommendations will be communicated back to the requesting physician by way of shared Medical record. I have communicated my name and active licensure. The patient's identity and physical location were verified at the time of this visit. Either the patient or their legal public relations representative has been informed of the risks and benefits of -- and alternatives to -- treatment through a remote evaluation and consents to proceed with the evaluation remotely via zoom platform. The patient and provider were both located in [place] at the time of this visit. Chief complaint: weight and back pain HPI: 28 year old female with a history of asthma, migraines, back pain/leg/knee pain and obesity presents for help with the pain and weight loss. For the back pain she has not seen a provider, but it is getting worse in the past few years and limiting her activity. She also reports fatigue and drinks caffeine most of the day. Psychosocial: Nutrition: some days very little, just snack (apple sauce pouch, moldovan yogurt, cupcake). Other days, hungry and will eat cereal, fruit, milk, coffee, lunch, snacks and eating all day. V: 1 or less F: 3 HF: very little P: meat (chicken, beef, pork, turkey) LES: Eating window: 8 am - 8:30, but now later because of 2nd shift job Water: not enough, ~ 20 oz/day Alcohol: no Caffeine: lots, coffee, tea, energy drinks (fatigue) BM: daily, multiple with diarrhea Food intolerances: coffee, milk Menses: regular, monthly, but recently starting to get a little weird, but still heavy and painful Sleep: - Hours 11 pm - 5-6 am (7 hours max) - Awakening - yes - Quality - poor, tossing, turning, temp intolerance, bathroom Movement/exercise - limited due to back pain, difficult with schedule Stress - moderate (working nights, home school, in school herself) Coping Mechanisms: Background Relationships and Social Network - lives with tj, 2 kids (6 and 4 years old), sister 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 Pertinent family history (AI, CVD): Current Supplements: vitamin D burst, but stopped due to kidney stones Current wellness challenges: PAST MEDICAL HISTORY Diagnosis Date Asthma childhood, no asthma attacks since age 15 Chronic back pain since delivery of first child Chronic hypertension affecting 10/10/2018 Chronic hypertension affecting 10/10/2018 10/10/18 - patient with elevated BP at 8 weeks which is c/w undiagnosed chtn, start 81mg aspirin at 12 weeks - Hector Bauer MD Chronic migraine without aura PMH - PAST MEDICAL HISTORY OF 04/30/2003 COLOR VISION NORMAL depression Renal stones PAST SURGICAL HISTORY Procedure Laterality Date DELIVERY ONLY 11/24/2017 DELIVERY ONLY 05/09/2019 RC/S low transverse REMOVAL GALLBLADDER 07/06/2020 [facility] SALPINGECTOMY COMPLETE/PARTIAL UNI/BI SPX Bilateral 05/09/2019 tubal ligation with filshie clips ALLERGIES Allergen Reactions Insect Venom Hives Was treated here for caterpillar exposure resulting in redness, swelling to entire right side Current Outpatient Medications on File Prior to Visit Medication Sig albuterol HFA (PROVENTIL HFA, VENTOLIN HFA) 90 mcg/actuation inhaler Inhale 2 Puffs as instructed every 4 hours as needed for wheezing/shortness of breath. omeprazole (PRILOSEC) 20 mg capsule Take 1 capsule by mouth daily before breakfast. 1/2 hr before meal. hydrOXYzine pamoate (VISTARIL) 25 mg capsule Take 25 mg by mouth three times daily as needed. MULTIVITAMIN ORAL Take by mouth once daily. No current facility-administered medications on file prior to visit. Social History Tobacco Use Smoking status: Never Smokeless tobacco: Never Vaping Use Vaping Use: Never used Substance Use Topics Alcohol use: Yes Comment: rare Drug use: No FAMILY HISTORY Problem Relation Age of Onset Breast Cancer Mother now has brain cancer also Ovarian cancer Mother Hypertension Mother Brain Cancer Mother other (heart murmur) Father other (ADD) Father other (PSYCOTIC MOODS) Father Lung Cancer Father Depression Sister other (Other) Brother Half-brother Diabetes Maternal Grandmother Heart Maternal Grandfather Cancer Paternal Grandmother ovarian Heart Paternal Grandfather Diabetes Paternal Grandfather No Known Problems Daughter Patient-Entered Questionnaires 12/31/2023 [facility] Physical Function PROMIS Physical Function T-Score 45 (within normal limits) 12/31/2023 (more content not included)... [facility] 12-31-2023 Instructions Joseline Mosley PA-C - 12/31/2023 2:29 PM EDT Star, I would like to thank you for spending time with me today and taking time to invest in your health. Below I have outlined some recommendations, I highly encourage you to work on. My recommendations only go so far, you have to do the work. Please reach our for support and questions via [email or web address]. Your plan: Referrals: - Chiropractor [phone] - Eating Well Shared Medical Visit [phone] General Diet recommendations: Aim for 4-5 servings (1 cup) vegetables. The more colorful the better. Aim for 2-3 servings (1 cup) of whole fruit Try to get 130+ grams of protein/day. Fiber - aim for > 25 grams/day for women and >38 grams/day men. Work your way up to this if you are not already at this amount. Going up to fast can result in excess bloating. Add healthy fats - avocado, nuts, seed, EVOO, avocado oil (avoid fried foods, vegetable oil, canola oil) Limit added sugar to <25 grams a day for women and <38 grams a day for men Aim to drink half of your body weigh in water daily Aim for 30 minutes of yoga/day until you get control of the back pain, then 7000 steps/day Protein per serving [place] (3 oz) = 17.4 grams Beef (3 oz) = 22 grams Chicken (3 oz) = 19.6 grams Soy beans (1 cup)= 28.5 grams Lentil (1 cup) = 17.9 grams Meza beans/chickpeas = 19 grams per 1 cup [facility] wellness videos Go to [email or web address] Yoga - Come As You Are (gentle chair yoga) [facility] Relaxation for chronic pain - guided meditations Relieve, Relax, Recharge - different meditations available Free wellness classes online (meditation, yoga, fitness) See the schedule and sign up for classes at: [email or web address] To set up a private one-hour yoga session with Josiane Schultz please call [phone] option 4 or email [email or web address]. Digestive Enzyme with probiotic: [email or web address] [email or web address] Recipes: [email or web address] documented in this encounter [facility] 12-31-2023 History of Presen t illness Narrative Images from the original note were not included. Wellness Consultation Ms.Star Cody Medina is a 28 year old female is here for a wellness and preventive medicine initial consultation. Consultation requested by Elieser Lux CNP for an opinion regarding weight management. My final recommendations will be communicated back to the requesting physician by way of shared Medical record. I have communicated my name and active licensure. The patient's identity and physical location were verified at the time of this visit. Either the patient or their legal public relations representative has been informed of the risks and benefits of -- and alternatives to -- treatment through a remote evaluation and consents to proceed with the evaluation remotely via zoom platform. The patient and provider were both located in [place] at the time of this visit. Chief complaint: weight and back pain HPI: 28 year old female with a history of asthma, migraines, back pain/leg/knee pain and obesity presents for help with the pain and weight loss. For the back pain she has not seen a provider, but it is getting worse in the past few years and limiting her activity. She also reports fatigue and drinks caffeine most of the day. Psychosocial: Nutrition: some days very little, just snack (apple sauce pouch, moldovan yogurt, cupcake). Other days, hungry and will eat cereal, fruit, milk, coffee, lunch, snacks and eating all day. V: 1 or less F: 3 HF: very little P: meat (chicken, beef, pork, turkey) LES: Eating window: 8 am - 8:30, but now later because of 2nd shift job Water: not enough, ~ 20 oz/day Alcohol: no Caffeine: lots, coffee, tea, energy drinks (fatigue) BM: daily, multiple with diarrhea Food intolerances: coffee, milk Menses: regular, monthly, but recently starting to get a little weird, but still heavy and painful Sleep: - Hours 11 pm - 5-6 am (7 hours max) - Awakening - yes - Quality - poor, tossing, turning, temp intolerance, bathroom Movement/exercise - limited due to back pain, difficult with schedule Stress - moderate (working nights, home school, in school herself) Coping Mechanisms: Background Relationships and Social Network - lives with tj, 2 kids (6 and 4 years old), sister 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[employer] Pertinent family history (AI, CVD): Current Supplements: vitamin D burst, but stopped due to kidney stones Current wellness challenges: PAST MEDICAL HISTORY Diagnosis Date Asthma childhood, no asthma attacks since age 15 Chronic back pain since delivery of first child Chronic hypertension affecting 10/10/2018 Chronic hypertension affecting 10/10/2018 10/10/18 - patient with elevated BP at 8 weeks which is c/w undiagnosed chtn, start 81mg aspirin at 12 weeks - Hector Bauer MD Chronic migraine without aura PMH - PAST MEDICAL HISTORY OF 04/30/2003 COLOR VISION NORMAL depression Renal stones PAST SURGICAL HISTORY Procedure Laterality Date DELIVERY ONLY 11/24/2017 DELIVERY ONLY 05/09/2019 RC/S low transverse REMOVAL GALLBLADDER 07/06/2020 [facility] SALPINGECTOMY COMPLETE/PARTIAL UNI/BI SPX Bilateral 05/09/2019 tubal ligation with filshie clips ALLERGIES Allergen Reactions Insect Venom Hives Was treated here for caterpillar exposure resulting in redness, swelling to entire right side Current Outpatient Medications on File Prior to Visit Medication Sig albuterol HFA (PROVENTIL HFA, VENTOLIN HFA) 90 mcg/actuation inhaler Inhale 2 Puffs as instructed every 4 hours as needed for wheezing/shortness of breath. omeprazole (PRILOSEC) 20 mg capsule Take 1 capsule by mouth daily before breakfast. 1/2 hr before meal. hydrOXYzine pamoate (VISTARIL) 25 mg capsule Take 25 mg by mouth three times daily as needed. MULTIVITAMIN ORAL Take by mouth once daily. No current facility-administered medications on file prior to visit. Social History Tobacco Use Smoking status: Never Smokeless tobacco: Never Vaping Use Vaping Use: Never used Substance Use Topics Alcohol use: Yes Comment: rare Drug use: No FAMILY HISTORY Problem Relation Age of Onset Breast Cancer Mother now has brain cancer also Ovarian cancer Mother Hypertension Mother Brain Cancer Mother other (heart murmur) Father other (ADD) Father other (PSYCOTIC MOODS) Father Lung Cancer Father Depression Sister other (Other) Brother Half-brother Diabetes Maternal Grandmother Heart Maternal Grandfather Cancer Paternal Grandmother ovarian Heart Paternal Grandfather Diabetes Paternal Grandfather No Known Problems Daughter Patient-Entered Questionnaires 12/31/2023 [facility] Physical Function PROMIS Physical Function T-Score 45 (within normal limits) 12/31/2023 [facility] Pain Interference PROMIS Pain Interference T-Score (range: 10 - 90) 63 (moderate) 12/31/2023 [facility] Fatigue PROMIS Fatigue T-Score 69 (moderate) 12/31/2023 [facility] Satisfaction with Social Roles PROMIS - Satisfaction with Participation in Social Roles T-Score 34 (Low) 12/31/2023 [facility] Anxiety PROMIS Anxiety T-Score 76 (severe) 12/31/2023 [facility] Sleep Disturbance PROMIS Sleep Disturbance T-Score 69 (moderate) 12/31/2023 [facility] NEUROQOL COGNITIVE T-SCORE PROMIS Neuroqol Cognitive T-Score 43 (mild dysfunction) REVIEW OF SYSTEMS: +back pain, + headaches, denies chest pain, denies SOB Physical Exam Video Exam (Examination performed via Video enabled technology) General: alert, oriented x 3, pleasant and cooperative Ill appearing: No Posture and motor behavior: normal posture and motor behavior Dress, grooming, personal hygiene: normal dress and grooming Facial expression: smiling Speech: normal speech PREVIOUS STUDIES: Pertinent labs/imaging: XR lumbar 07/2023: Lumbar spine mild degenerative changes as described above. XR sacrum 07/2023: Unremarkable sacrum/coccyx x-ray. Latest Ref Rng 2023 WBC 3.70 - 11.00 k/uL 9.60 RBC 3.90 - 5.20 m/uL 4.87 Hemoglobin 11.5 - 15.5 g/dL 13.6 Hematocrit 36.0 - 46.0 % 41.4 MCV 80.0 - 100.0 fL 85.0 MCH 26.0 - 34.0 pg 27.9 MCHC 30.5 - 36.0 g/dL 32.9 RDW-CV 11.5 - 15.0 % 13.1 Platelet Count 150 - 400 k/uL 340 Latest Ref Rng 2023 Total Cholesterol, Nonfasting <200 mg/dL 183 Triglycerides, Nonfasting <150 mg/dL 166 (H) HDL Cholesterol, Nonfasting >39 mg/dL 37 (L) LDL Cholesterol, Nonfasting <100 mg/dL 113 (H) Non HDL Cholesterol, Nonfasting <130 mg/dL 146 (H) VLDL Cholesterol, Nonfasting <30 mg/dL 33 (H) Total Chol/HDL Ratio, Nonfasting <5.10 mg/dL 4.95 LDL/HDL Ratio, Nonfasting <2.54 mg/dL 3.05 (H) Latest Ref Rng 2023 Iron 41 - 186 ug/dL 67 TIBC 232 - 386 ug/dL 375 Transferrin Saturation 15.0 - 57.0 % 17.9 Hemoglobin A1C 4.3 - 5.6 % 5.0 Estimated Average Glucose mg/dL 97 Vitamin D 25 Hydroxy 31.0 - 80.0 ng/mL 21.8 (L) IMPRESSION: Ms. Robin Medina is a 28 year old year old female ith a history of asthma, migraines, back pain/leg/knee pain and obesity presents for help with the pain and weight loss. She was referred by Elieser Lux for a wellness and preventive medicine consultation. A wellness and preventive medicine approach was discussed with the patient including risks, benefits, and alternatives. She agrees to proceed. It was emphasized that she should continue with all of her current treating caregivers's recommendations. Treatment plan/recommendations: (M54.42, M54.41, G89.29) Chronic bilateral low back pain with bilateral sciatica (primary encounter diagnosis) Comment: Plan: - CONSULT TO CHIROPRACTOR - Yoga resources (F41.8) Anxiety with depression and a/w food Comment: Plan: - EATING WELL FOR OPTIMAL HEALTH [facility] - Yoga, breathing, (E66.01, Z68.43) Morbid obesity with BMI of 50.0-59.9, adult ([facility]) Comment: Plan: - EATING WELL FOR OPTIMAL HEALTH [facility] - General diet recommendations - Recommend removing food intolerances (dairy (G43.019) Migraine without aura, intractable, without status migrainosus Comment: ? Caffeine related (drinks caffeine all day) Plan: - EATING WELL FOR OPTIMAL HEALTH [facility] - remove triggers - meds prn Diarrhea since cholecystectomy - Digestive enzyme Hx of vitamin D deficiency - developed kidney stones when supplemented high dosing - consider checking again and adding magnesium, it was likely the release of calcium (also influenced by cholecystectomy) It has been a pleasure to see Ms. Robin Medina for a wellness and preventive medicine consultation. I have asked Robin Medina to return to see me 3-6 mo. Thank you for the referral or interest in caring for your whole body and mind. I spent a total of 45 minutes on the date of the service which included preparing to see the patient, [id number] patient care, completing clinical documentation, obtaining and/or reviewing separately obtained history, performing a medically appropriate examination, counseling and educating the patient/family/caregiver, communicating with other HCPs (not separately reported), independently interpreting results (not separately reported), and communicating results to the patient/family/caregiver. documented in this encounter [facility] 12-31-2023 Nurse Note Patient didn't answer called three times documented in this encounter [facility] 12-20-2023 History of Presen t illness Narrative Chief Complaint Patient presents with: Back Pain Edema: X 1 month HPI Robin Medina is a 28 year old female who presents here today for Above Complaints.. Patient presents for Back pain and lower extremity edema x1 month. Patient reports Back pain has been continuous since July but edema is new. Patient reports her legs swell and do not go down over night or with elevation. Patient is currently working at a job where she is on her feet most of the day. Past medical history, appointments, medications, allergies reviewed. Previous Medical History PAST MEDICAL HISTORY Diagnosis Date Asthma childhood, no asthma attacks since age 15 Chronic back pain since delivery of first child Chronic hypertension affecting 10/10/2018 Chronic hypertension affecting 10/10/2018 10/10/18 - patient with elevated BP at 8 weeks which is c/w undiagnosed chtn, start 81mg aspirin at 12 weeks - Hector Bauer MD Chronic migraine without aura PMH - PAST MEDICAL HISTORY OF 04/30/2003 COLOR VISION NORMAL depression Renal stones Previous Surgical History PAST SURGICAL HISTORY Procedure Laterality Date DELIVERY ONLY 11/24/2017 DELIVERY ONLY 05/09/2019 RC/S low transverse REMOVAL GALLBLADDER 07/06/2020 [facility] [place] SALPINGECTOMY COMPLETE/PARTIAL UNI/BI SPX Bilateral 05/09/2019 tubal ligation with chio morales Family History FAMILY HISTORY Problem Relation Age of Onset Breast Cancer Mother now has brain cancer also Ovarian cancer Mother Hypertension Mother Brain Cancer Mother other (heart murmur) Father other (ADD) Father other (PSYCOTIC MOODS) Father Lung Cancer Father Depression Sister other (Other) Brother Half-brother Diabetes Maternal Grandmother Heart Maternal Grandfather Cancer Paternal Grandmother ovarian Heart Paternal Grandfather Diabetes Paternal Grandfather No Known Problems Daughter Patient Allergies ALLERGIES Allergen Reactions Insect Venom Hives Was treated here for caterpillar exposure resulting in redness, swelling to entire right side Current Medications Current Outpatient Medications on File Prior to Visit Medication Sig albuterol HFA (PROVENTIL HFA, VENTOLIN HFA) 90 mcg/actuation inhaler Inhale 2 Puffs as instructed every 4 hours as needed for wheezing/shortness of breath. omeprazole (PRILOSEC) 20 mg capsule Take 1 capsule by mouth daily before breakfast. 1/2 hr before meal. escitalopram oxalate (LEXAPRO) 20 mg tablet Take 20 mg by mouth once daily. hydrOXYzine pamoate (VISTARIL) 25 mg capsule Take 25 mg by mouth three times daily as needed. MULTIVITAMIN ORAL Take by mouth once daily. rizatriptan (MAXALT) 10 mg tablet 1 at onset of headache. May repeat in 2 hours if needed. Do not exceed more than 2 in 24 hours. No current facility-administered medications on file prior to visit. Social History Social History Tobacco Use Smoking status: Never Smokeless tobacco: Never Vaping Use Vaping Use: Never used Substance Use Topics Alcohol use: Yes Comment: rare Drug use: No Review of Symptoms REVIEW OF SYSTEMS SEE HPI EXAM: BP 128/76 Pulse 84 Resp 16 Wt 131.5 kg (290 lb) LMP 02/18/2023 (Approximate) BMI 52.69 kg/m General Appearance: Well appearing, alert, in no acute distress, well-hydrated, well nourished.. Back:no pain to palpation of vertebrae, reflexes are 2+ and symmetric, motor and sensory appear to be normal. Muscle tenderness to lumbar area as well as into bilateral buttocks in the sciatic region. Extremities: Edema: nonpitting edema to b/l lower extremities. Peripheral Pulses: Normal. Health Maintenance List Covid-19 Vaccine( season) due on 2024 Pap Testing due on 02/28/2025 DTaP,Tdap,Td Vaccine(10 - Td or Tdap) due on 02/26/2029 Hepatitis B Vaccine Completed HPV Vaccine Completed Influenza Vaccine Completed Hepatitis C Screening Completed HIV Screening Completed ASSESSMENT/PLAN: 1. Morbid obesity with BMI of 50.0-59.9, adult (HCC) - ICD9: 278.01, V85.43, ICD10: E66.01, Z68.43 (primary diagnosis) Weight increasing - Eat well program - CONSULT TO WELLNESS PHYSICIAN 2. Chronic midline low back pain without sciatica - ICD9: 724.2, 338.29, ICD10: M54.50, G89.29 - CONSULT TO PHYSICAL THERAPY Elieser Lux APRN.NOA documented in this encounter [facility] 09-04-2023 History of Presen t illness Narrative Radiology Service Progress Note PATIENT NAME: Robin Medina DATE OF SERVICE: September 04, 2023 TIME: 6:46 PM PATIENT IDENTITY VERIFICATION COMPLETED USING TWO (2) IDENTIFIERS: Name and Date of confirmed by patient verbally. FALL SCREENING: Has the patient had 2 falls in the last year or 1 fall with injury or currently using an Ambulatory Assistive Device (Walker, Cane, Wheelchair, Crutches, etc.)? No PATIENT GENDER DATA: Female. status: : No status: NO. PATIENT RELEVANT IMPLANT DATA REVIEWED: Yes RADIOLOGY DEPARTMENT: General X-ray: Exam(s) Completed: Chest X-Ray PERIPHERAL IV DATA: Not applicable SIGNED BY: RT Dewey(R) September 04, 2023 6:46 PM documented in this encounter [facility] 08-13-2023 Miscellaneous Notes Pt notified of results via [employer]ide[employer]. Shanae Cheney Ma Please let patient know her lumbar xray shows mild degenerative changes. documented in this encounter [facility] 08-13-2023 Miscellaneous Notes Patient returned call and went over results from Elieser Lux BLOWER INSTALLER with understanding. Left message for patient to contact office. Cheryl Bauer MA Please let patient know their xray is normal. documented in this encounter [facility] 08-08-2023 History of Presen t illness Narrative Chief Complaint Patient presents with: Follow Up HPI Robin Medina is a 28 year old female who presents here today for Above Complaints.. Patient presents for follow up for GERD. Patient reports large improvement in GERD symptoms. Patient also asking for recommendations for low back pain. Past medical history, appointments, medications, allergies reviewed. Previous Medical History PAST MEDICAL HISTORY Diagnosis Date Asthma childhood, no asthma attacks since age 15 Chronic back pain since delivery of first child Chronic hypertension affecting 10/10/2018 Chronic hypertension affecting 10/10/2018 10/10/18 - patient with elevated BP at 8 weeks which is c/w undiagnosed chtn, start 81mg aspirin at 12 weeks - Hector Bauer MD Chronic migraine without aura PMH - PAST MEDICAL HISTORY OF 04/30/2003 COLOR VISION NORMAL depression Renal stones Previous Surgical History PAST SURGICAL HISTORY Procedure Laterality Date DELIVERY ONLY 11/24/2017 DELIVERY ONLY 05/09/2019 RC/S low transverse REMOVAL GALLBLADDER 07/06/2020 [facility] SALPINGECTOMY COMPLETE/PARTIAL UNI/BI SPX Bilateral 05/09/2019 tubal ligation with filshie clips Family History FAMILY HISTORY Problem Relation Age of Onset Breast Cancer Mother now has brain cancer also Ovarian cancer Mother Hypertension Mother Brain Cancer Mother other (heart murmur) Father other (ADD) Father other (PSYCOTIC MOODS) Father Lung Cancer Father Depression Sister other (Other) Brother Half-brother Diabetes Maternal Grandmother Heart Maternal Grandfather Cancer Paternal Grandmother ovarian Heart Paternal Grandfather Diabetes Paternal Grandfather No Known Problems Daughter Patient Allergies ALLERGIES Allergen Reactions Insect Venom Hives Was treated here for caterpillar exposure resulting in redness, swelling to entire right side Current Medications Current Outpatient Medications on File Prior to Visit Medication Sig omeprazole (PRILOSEC) 20 mg capsule Take 1 capsule by mouth once daily. escitalopram oxalate (LEXAPRO) 20 mg tablet Take 20 mg by mouth once daily. hydrOXYzine pamoate (VISTARIL) 25 mg capsule Take 25 mg by mouth three times daily as needed. MULTIVITAMIN ORAL Take by mouth once daily. rizatriptan (MAXALT) 10 mg tablet 1 at onset of headache. May repeat in 2 hours if needed. Do not exceed more than 2 in 24 hours. No current facility-administered medications on file prior to visit. Social History Social History Tobacco Use Smoking status: Never Smokeless tobacco: Never Vaping Use Vaping Use: Never used Substance Use Topics Alcohol use: Yes Comment: rare Drug use: No Review of Symptoms REVIEW OF SYSTEMS SEE HPI EXAM: BP 134/78 Pulse 110 Resp 16 Wt 130.6 kg (288 lb) LMP 02/18/2023 (Approximate) BMI 52.33 kg/m General Appearance: Well appearing, alert, in no acute distress, well-hydrated, well nourished.. Abdomen: Normal abdominal exam, Abdomen soft, non-tender. Bowel sounds normal. No masses, organomegaly. Back: slight dec extension, slight dec. flexion, mild pain to palpation in the LS spine midline Health Maintenance List Covid-19 Vaccine( season) due on 2024 Pap Testing due on 02/28/2025 DTaP,Tdap,Td Vaccine(10 - Td or Tdap) due on 02/26/2029 Hepatitis B Vaccine Completed HPV Vaccine Completed Influenza Vaccine Completed Hepatitis C Screening Completed HIV Screening Completed ASSESSMENT/PLAN: 1. Gastroesophageal reflux disease with esophagitis without hemorrhage - ICD9: 530.81, 530.10, ICD10: K21.00 (primary diagnosis) - Discussed lifestyle modifications including losing weight, limiting caffeine, no meals three hours before sleep, and head of bed elevation - Continue treatment with Prilosec 20 mg QD - OMEPRAZOLE 20 MG CAPSULE,DELAYED RELEASE 2. Chronic bilateral low back pain without sciatica - ICD9: 724.2, 338.29, ICD10: M54.50, G89.29 - XR LUMBAR GENERAL 3V AP/LAT/L5-S1 - XR SACRUM/COCCYX 3V AP/LAT Elieser Lux, SALES REPRESENTATIVE GRAPHIC ART.NOA documented in this encounter [facility] 12-05-2022 Procedure note [facility] 07-24-2022 Miscellaneous Notes Patient notified of results and provider's instructions. Patient verbalizes understanding. Gisella Tyler LPN Let patient know that her vit D is quite low. I'm going to start her on a vit D supplement. Recheck vit d in 3 months. The rest of her labs look okay. I'm still waiting on a few of the results yet. Alma Delia Chaidez PA-C documented in this encounter [facility] 07-20-2022 History of Presen t illness Narrative Chief Complaint Patient presents with: Follow Up: Wants to discuss possible POTS HPI Robin Medina is a 27 year old female who presents here today for Above Complaints.. Patient states that she notices lightheaded and dizziness whenever she stands up or lifts her head. Has been going on for years but never thought too much of it. She thought it was normal. Has palpitations. She also notices hot flashes at times. Feels like she gets fatigued easily with even just a 15min walk. No chest pain. She has chronic diarrhea. States she has to go to the bathroom shortly after any meals. Past medical history, appointments, medications, allergies reviewed. Previous Medical History PAST MEDICAL HISTORY Diagnosis Date Asthma childhood, no asthma attacks since age 15 Chronic back pain since delivery of first child Chronic hypertension affecting 10/10/2018 Chronic migraine without aura PMH - PAST MEDICAL HISTORY OF 04/30/2003 COLOR VISION NORMAL depression Previous Surgical History PAST SURGICAL HISTORY Procedure Laterality Date DELIVERY ONLY 11/24/2017 DELIVERY ONLY 05/09/2019 RC/S low transverse REMOV[facility] SALPINGECTOMY COMPLETE/PARTIAL UNI/BI SPX Bilateral 05/09/2019 tubal ligation with chio morales Family History FAMILY HISTORY Problem Relation Age of Onset Breast Cancer Mother now has brain cancer also Ovarian cancer Mother Hypertension Mother Brain Cancer Mother other (heart murmur) Father other (ADD) Father other (PSYCOTIC MOODS) Father Lung Cancer Father Depression Sister other (Other) Brother Half-brother Diabetes Maternal Grandmother Heart Maternal Grandfather Cancer Paternal Grandmother ovarian Heart Paternal Grandfather Diabetes Paternal Grandfather No Known Problems Daughter Patient Allergies ALLERGIES Allergen Reactions Insect Venom Hives Was treated here for caterpillar exposure resulting in redness, swelling to entire right side Current Medications Current Outpatient Medications on File Prior to Visit Medication Sig melatonin 3 mg tablet Take 3 mg by mouth once daily. MULTIVITAMIN ORAL Take by mouth once daily. fluoxetine HCl (PROZAC ORAL) Take by mouth. rizatriptan (MAXALT) 10 mg tablet 1 at onset of headache. May repeat in 2 hours if needed. Do not exceed more than 2 in 24 hours. amitriptyline HCl (AMITRIPTYLINE ORAL) Take by mouth. (Patient not taking: Reported on 07/20/2022) topiramate (TOPAMAX) 50 mg tablet Take 1 tablet by mouth twice daily. (Patient not taking: Reported on 02/28/2022 ) buPROPion SR (ZYBAN SR; WELLBUTRIN SR) 150 mg 12 hr tablet Take 1 tablet by mouth twice daily. (Patient not taking: Reported on 02/28/2022 ) rizatriptan (MAXALT MSW) 5 mg disintegrating tablet Take 1 tablet by mouth as needed. May repeat in 2 hours if needed (Patient not taking: Reported on 02/28/2022 ) No current facility-administered medications on file prior to visit. Social History Social History Tobacco Use Smoking status: Never Smokeless tobacco: Never Vaping Use Vaping Use: Never used Substance Use Topics Alcohol use: Not Currently Comment: rare Drug use: No Review of Symptoms REVIEW OF SYSTEMS See hpi EXAM: BP 122/96 (BP Site: Right Arm, BP Position: Sitting, BP Cuff Size: Large Adult) Pulse 72 Temp 36.9 C (98.4 F) Resp 18 Wt 122 kg (269 lb) LMP 07/14/2022 (Approximate) BMI 48.81 kg/m General Appearance: Well appearing, alert, in no acute distress, well-hydrated, well nourished.. Neck: Supple, no adenopathy; thyroid symmetric, normal size, no bruits. Lungs: Lungs clear to auscultation. No wheezing, rhonchi, rales.. Heart: RRR without murmur, gallop, or rubs. No ectopy. Extremities: No deformities, edema, skin discoloration, clubbing or cyanosis. Good capillary refill. . Peripheral Pulses: Normal. Health Maintenance List COVID-19 VACCINE(1) Never done HEPATITIS C SCREENING Never done INFLUENZA(1) due on 05/18/2022 PAP TESTING due on 02/28/2025 DTAP,TDAP,TD(10 - Td or Tdap) due on 02/26/2029 HEPATITIS B Completed HPV VACCINE Completed HIV SCREENING Completed Data reviewed ASSESSMENT/PLAN: 1. Lightheadedness - ICD9: 780.4, ICD10: R42 (primary diagnosis) See below - CONSULT TO CARDIOLOGY - COMP METABOLIC PANEL - CBC + DIFF - TSH BLD - METANEPHRINES, FREE PLASMA - CATECHOLAMINES FRA - FOLATE SERUM - VITAMIN B12 BLOOD - VITAMIN D 25 HYDROXY - T4 FREE/FREE THYROX 2. Palpitations - ICD9: 785.1, ICD10: R00.2 See below - CONSULT TO CARDIOLOGY - COMP METABOLIC PANEL - CBC + DIFF - TSH BLD - METANEPHRINES, FREE PLASMA - CATECHOLAMINES FRA - FOLATE SERUM - VITAMIN B12 BLOOD - VITAMIN D 25 HYDROXY - T4 FREE/FREE THYROX 3. Numbness and tingling - ICD9: 782.0, ICD10: R20.0, R20.2 See below - COMP METABOLIC PANEL - CBC + DIFF - TSH BLD - METANEPHRINES, FREE PLASMA - CATECHOLAMINES FRA - FOLATE SERUM - VITAMIN B12 BLOOD - VITAMIN D 25 HYDROXY - T4 FREE/FREE THYROX 4. Flushing - ICD9: 782.62, ICD10: R23.2 See below - COMP METABOLIC PANEL - CBC + DIFF - TSH BLD - METANEPHRINES, FREE PLASMA - CATECHOLAMINES FRA - FOLATE SERUM - VITAMIN B12 BLOOD - VITAMIN D 25 HYDROXY - T4 FREE/FREE THYROX 5. Positional lightheadedness - ICD9: 780.4, ICD10: R42 See below - CONSULT TO CARDIOLOGY 6. Screening for diabetes mellitus - ICD9: V77.1, ICD10: Z13.1 - HGB A1C 7. Screening for lipid disorders - ICD9: V77.91, ICD10: Z13.220 - LIPID PANEL, NONFASTING 8. Need for hepatitis C screening test - ICD9: V73.89, ICD10: Z11.59 - HEP C AB IA W/CONF SCRN 9. Encounter for immunization - ICD9: V03.89, ICD10: Z23 - INFLUENZA VACCINE QUADRIVALENT 6 MO - 64 YRS IM - [employer] COVID-19 PRIMARY SERIES VACCINE, AGE 12+ YR Patient with multiple concerns today that could all be related to each other or separate individual issues. Will start with labs and I will put a consult in to Cardiology for further evaluation in heart symptoms. Depending on labs and cardio eval, may consider further testing or tx options. Alma Delia Chaidez PA-C documented in this encounter [facility] 05-16-2022 Instructions Cally Rain RN - 05/16/2022 4:07 PM EDT Gardasil Gardasil is a vaccine to protect against Human Papillomavirus (HPV) types 6, 11, 16, 18, 31,33,45, 52, 58. These viruses cause cancer and precancerous lesions on the cervix (opening between vagina and uterus), in the vagina and on the vulva (skin around the outside of the vagina) as well as genital warts. The vaccine cannot cause these diseases and cannot treat them if already present. Gardasil works best if given before contact with HPV. Most people are exposed to HPV soon after starting sexual activity. The vaccine is recommended between the ages of 9 and 45. Gardasil does not protect against all strains of HPV. Women who receive the vaccine still need to have regular pelvic exams and cervical cancer screening with the pap smear. You should ask your doctor if Gardasil is right for you if you have a weakened immune system, a bleeding disorder, plan to become soon or have a current illness causing fever. Gardasil is not recommended for women. You should be sure your doctor is aware of any allergies you have and all medications and herbal supplements you take. Gardasil is given to those ages 9-14 in 2 doses at 0 and 8 months. In ages 15-45, three injections are given at 0,2,6 months. Common side effects include pain, redness, itching and swelling at the injection site, nausea, fever, dizziness and fainting. Rare but potentially serious reactions have been reported. These include allergic reaction, swollen glands, joint and muscle pain, weakness and Guillain-[place] syndrome. documented in this encounter [facility] 05-16-2022 History of Presen t illness Narrative Patient identified by name and date of . Robin Medina is here for her HPV 9 vaccination, injection # two of the series. Patient ?No Gardasil injection was given without incident. See immunizations for details of immunizations administered today. VIS sheet provided: Yes Patient advised to follow up in 4 months from the 2nd injection Provider Hector Bauer MD was present in office at time of injection. Cally Rain RN documented in this encounter [facility] 02-28-2022 Miscellaneous Notes Addended by: LAUREL FRANCIS MA on: 02/28/2022 04:39 PM Modules accepted: Orders documented in this encounter [facility] 02-28-2022 History of Presen t illness Narrative Patient identified by name and date of . Robin Medina is here for her HPV 9 vaccination, injection # one of the series. Patient ?No Gardasil injection was given without incident. See immunizations for details of immunizations administered today. VIS sheet provided: Yes Patient advised to follow up in 2 months from the 1st injection Provider Hector Bauer MD was present in office at time of injection. Laurel Francis MA Robin is a 26 year old who presents for an annual gynecologic exam. Menses: Patient started prozac earlier this year & since then menses have been monthly. Flow lasts about 6-7 days with some spotting at times. Contraception: tubal sterilization HPV vaccine: No Last Pap: 10/15/2018 normal HPV: N/A History of abnormal pap: No OB History T2 L2 SAB0 IAB0 Ectopic0 Multiple0 Live Births2 Line Fisher History LMP: 02/15/2022, Having periods Age at Menarche: Age at First : Age at Menopause: Line Fisher History Comments: Sexual Activity: Yes; Male Contraception: None PAST MEDICAL HISTORY Diagnosis Date Asthma childhood, no asthma attacks since age 15 Chronic back pain since delivery of first child Chronic hypertension affecting 10/10/2018 Chronic migraine without aura PMH - PAST MEDICAL HISTORY OF 04/30/2003 COLOR VISION NORMAL depression PAST SURGICAL HISTORY Procedure Laterality Date DELIVERY ONLY 11/24/2017 DELIVERY ONLY 05/09/2019 RC/S low transverse REMOVAL GALLBLADDER 07/06/2020 [facility] SALPINGECTOMY COMPLETE/PARTIAL UNI/BI SPX Bilateral 05/09/2019 tubal ligation with filshie clips FAMILY HISTORY Problem Relation Age of Onset Breast Cancer Mother now has brain cancer also Ovarian cancer Mother Hypertension Mother Brain Cancer Mother other (heart murmur) Father other (ADD) Father other (PSYCOTIC MOODS) Father Lung Cancer Father Depression Sister other (Other) Brother Half-brother Diabetes Maternal Grandmother Heart Maternal Grandfather Cancer Paternal Grandmother ovarian Heart Paternal Grandfather Diabetes Paternal Grandfather No Known Problems Daughter SOCIAL HISTORY Social History Tobacco Use Smoking status: Never Smoker Smokeless tobacco: Never Used Vaping Use Vaping Use: Never used Substance Use Topics Alcohol use: Not Currently Comment: rare Drug use: No REVIEW OF SYSTEMS Abdomen: No abdominal pain, nausea, vomiting, diarrhea, or constipation. No bloating, early satiety, indigestion, or increased flatulence. Bladder: No dysuria, gross hematuria, urinary frequency, urinary urgency, or incontinence. Breast: No breast lumps, nipple d/c, overlying skin changes, redness or skin retraction. Allergies and current medication updated:Yes EXAM: BP 140/84 Ht 5' 2.25 (1.58m) Wt 275 lb (124.7kg) LMP 02/15/2022 BMI 49.90 kg/(m^2). GENERAL: pleasant, female in no apparent distress BREAST: soft, non-tender, symmetric, no dominant mass, normal nipple-areolar complex, no lymphadenopathy and no nipple discharge CHEST: Normal inspiratory effort ABDOMEN: soft, non-tender and no masses PELVIC: external genitalia normal, normal Bartholin's glands, urethra, Ewa Gentry's glands, no vulvar lesions, no cervical lesions, good vaginal support, physiologic discharge present, normal appearing perineal body and perianal region BIMANUAL: uterus normal size, shape and consistency, no adnexal masses and non-tender; exam limited by obesity RECTOVAGINAL: deferred. NEURO: alert and oriented x3,exam grossly non-focal EXTREMITIES: normal ASSESSMENT/PLAN: 1) Health maintenance: Pap done with reflex HPV. Nutrition, exercise and routine health maintenance exams reviewed. 2) Contraception: tubal sterilization. 3) STD screening: Accepted STD check for Gonorrhea and Chlamydia & trich. 4) Follow up one year or sooner as needed 5) HPV vaccine series ordered 6) cancer - consult to medical genetics Hector Bauer MD documented in this encounter [facility] 02-28-2022 Meri Francis Tn - 02/28/2022 4:29 PM EDT Gardasil Gardasil is a vaccine to protect against Human Papillomavirus (HPV) types 6, 11, 16, 18, 31,33,45, 52, 58. These viruses cause cancer and precancerous lesions on the cervix (opening between vagina and uterus), in the vagina and on the vulva (skin around the outside of the vagina) as well as genital warts. The vaccine cannot cause these diseases and cannot treat them if already present. Gardasil works best if given before contact with HPV. Most people are exposed to HPV soon after starting sexual activity. The vaccine is recommended between the ages of 9 and 45. Gardasil does not protect against all strains of HPV. Women who receive the vaccine still need to have regular pelvic exams and cervical cancer screening with the pap smear. You should ask your doctor if Gardasil is right for you if you have a weakened immune system, a bleeding disorder, plan to become soon or have a current illness causing fever. Gardasil is not recommended for women. You should be sure your doctor is aware of any allergies you have and all medications and herbal supplements you take. Gardasil is given to those ages 9-14 in 2 doses at 0 and 8 months. In ages 15-45, three injections are given at 0,2,6 months. Common side effects include pain, redness, itching and swelling at the injection site, nausea, fever, dizziness and fainting. Rare but potentially serious reactions have been reported. These include allergic reaction, swollen glands, joint and muscle pain, weakness and Guillain-[place] syndrome. documented in this encounter [facility] 10-10-2018 History of Past i llness Narrative Problem Noted Date Resolved Date Short interval between pregn ancies affecting , antepartum 10/10/2018 06/19/2019 Overview: 10/10/2018Patient delivered her last child 11/2017.TKRN History of delivery, antepartum 019 06/19/2019 Overview: 12/05/18 - plan for tubal ligation with section - Hector Bauer MD 11/04/18 - plans for repeat - Hector Bauer MD 10/10/18 - Risks/benefits/alternatives discussed with patient regarding trial of labor and potential for uterine rupture. Risks include but are not limited to maternal hemorrhage, risk of injury to adjacent organs including potential hysterectomy. risks discussed as well, including potential for permanent neurologic injury or . Overall uterine rupture risk is less than 1% after one section. Is a trial of labor contraindicated for this patient? No If no, calculate rate of success using pre-labor factors: http://www.[facility].edu/mfmu/vagbirth.html Predicted chance of vaginal after : 52.9% Patient's plan for delivery mode: patient undecided. She will do MATT's & then plan to discuss further. Hector Bauer MD 10/10/2018 Pt had a previous C section. She is considering a repeat C section by Dr Bauer versawilda a .Emmis on and C Section ordered. TKRN Obesity in 10/10/2018 06/19/2019 Overview: 10/10/2018Patient is obese. Will plan on GCT@ NOB. 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 No corrective surgery. Patient's 2nd cousin with Down Syndrome. TKRN Patient request for diagnostic testing 9 06/19/2019 Overview: 10/10/2018Patient desires nuchal ultrasound and CF carrier screening testing. TTKRN control counseling 10/10/2018 019 Overview: 01/02/19 - title 19 papers signed today - Hector Bauer MD 10/10/18 - patient considering tubal ligation vs mirena IUD, counseled on R/B/A including risks of regret with sterilization - Hector Bauer MD Unstable lie of fetus 10/25/2017 10/10/2018 Overview: 10/25/17 - vtx today, was breech last week, needs weekly US for presentation - [facility] Obesity complicating , third trimester 09/27/2017 10/10/2018 UTI (urinary tract infection) in , ante 09/27/2017 10/10/2018 Overview: 09/27/17: UTI dx'ed in early and treated by [facility] provider - repeat CCMS done today. Lee Ann Rivera CNM documented as of this encounter (statuses as of 02/28/2022) [facility] History of Past illness Narrative* Problem Noted Date Resolved Date Short interval between pregn ancies affecting , antepartum 10/10/2018 06/19/2019 Overview: 10/10/2018Patient delivered her last child 11/2017.TKRN History of delivery, antepartum 019 06/19/2019 Overview: 12/05/18 - plan for tubal ligation with section - Hector Bauer MD 11/04/18 - plans for repeat - Hector Bauer MD 10/10/18 - Risks/benefits/alternatives discussed with patient regarding trial of labor and potential for uterine rupture. Risks include but are not limited to maternal hemorrhage, risk of injury to adjacent organs including potential hysterectomy. risks discussed as well, including potential for permanent neurologic injury or . Overall uterine rupture risk is less than 1% after one section. Is a trial of labor contraindicated for this patient? No If no, calculate rate of success using pre-labor factors: http://www.bsc[facility]/mfmu/vagbirth.html Predicted chance of vaginal after : 52.9% Patient's plan for delivery mode: patient undecided. She will do MATT's & then plan to discuss further. Hector Bauer MD 10/10/2018 Pt had a previous C section. She is considering a repeat C section by Dr Bauer versawilda a .Emmis on and C Section ordered. TKRN Obesity in 10/10/2018 06/19/2019 Overview: 10/10/2018Patient is obese. Will plan on GCT@ NOB. 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 No corrective surgery. Patient's 2nd cousin with Down Syndrome. TKRN Patient request for diagnostic testing 9 06/19/2019 Overview: 10/10/2018Patient desires nuchal ultrasound and CF carrier screening testing. TTKRN control counseling 10/10/2018 019 Overview: 01/02/19 - title 19 papers signed today - Hector Bauer MD 10/10/18 - patient considering tubal ligation vs mirena IUD, counseled on R/B/A including risks of regret with sterilization - Hector Bauer MD Unstable lie of fetus 10/25/2017 10/10/2018 Overview: 10/25/17 - vtx today, was breech last week, needs weekly US for presentation - KJ Obesity complicating , third trimester 09/27/2017 10/10/2018 UTI (urinary tract infection) in , ante 09/27/2017 10/10/2018 Overview: 09/27/17: UTI dx'ed in early and treated by [facility] provider - repeat CCMS done today. Lee Ann Rivera CNM documented as of this encounter (statuses as of 05/16/2022) [facility]01-24-2019 History of Past illness Narrative* Problem Noted Date Resolved Date Short interval between pregn ancies affecting , antepartum 10/10/2018 06/19/2019 Overview: 10/10/2018Patient delivered her last child 11/2017.TKRN History of delivery, antepartum 019 06/19/2019 Overview: 12/05/18 - plan for tubal ligation with section - Hector Bauer MD 11/04/18 - plans for repeat - Hector Bauer MD 10/10/18 - Risks/benefits/alternatives discussed with patient regarding trial of labor and potential for uterine rupture. Risks include but are not limited to maternal hemorrhage, risk of injury to adjacent organs including potential hysterectomy. risks discussed as well, including potential for permanent neurologic injury or . Overall uterine rupture risk is less than 1% after one section. Is a trial of labor contraindicated for this patient? No If no, calculate rate of success using pre-labor factors: http://www.bsc[facility].edu/mfmu/vagbirth.html Predicted chance of vaginal after : 52.9% Patient's plan for delivery mode: patient undecided. She will do MATT's & then plan to discuss further. Hector Bauer MD 10/10/2018 Pt had a previous C section. She is considering a repeat C section by Dr Richie howe a .Emmis on and C Section ordered. TKRN Obesity in 10/10/2018 06/19/2019 Overview: 10/10/2018Patient is obese. Will plan on GCT@ NOB. 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 No corrective surgery. Patient's 2nd cousin with Down Syndrome. TKRN Patient request for diagnostic testing 9 06/19/2019 Overview: 10/10/2018Patient desires nuchal ultrasound and CF carrier screening testing. TTKRN control counseling 10/10/2018 019 Overview: 01/02/19 - title 19 papers signed today - Hector Bauer MD 10/10/18 - patient considering tubal ligation vs mirena IUD, counseled on R/B/A including risks of regret with sterilization - Hector Bauer MD Unstable lie of fetus 10/25/2017 10/10/2018 Overview: 10/25/17 - vtx today, was breech last week, needs weekly US for presentation - KJ Obesity complicating , third trimester 09/27/2017 10/10/2018 UTI (urinary tract infection) in , ante 09/27/2017 10/10/2018 Overview: 09/27/17: UTI dx'ed in early and treated by [facility] provider - repeat CCMS done today. Lee Ann Rivera CNM documented as of this encounter (statuses as of 07/20/2022) [facility]01-24-2019 History of Past illness Narrative* Problem Noted Date Resolved Date Short interval between pregn ancies affecting , antepartum 10/10/2018 06/19/2019 Overview: 10/10/2018Patient delivered her last child 11/2017.TKRN History of delivery, antepartum 019 06/19/2019 Overview: 12/05/18 - plan for tubal ligation with section - Hector Bauer MD 11/04/18 - plans for repeat - Hector Bauer MD 10/10/18 - Risks/benefits/alternatives discussed with patient regarding trial of labor and potential for uterine rupture. Risks include but are not limited to maternal hemorrhage, risk of injury to adjacent organs including potential hysterectomy. risks discussed as well, including potential for permanent neurologic injury or . Overall uterine rupture risk is less than 1% after one section. Is a trial of labor contraindicated for this patient? No If no, calculate rate of success using pre-labor factors: http://www.bs.[facility]/mfmu/vagbirth.html Predicted chance of vaginal after : 52.9% Patient's plan for delivery mode: patient undecided. She will do MATT's & then plan to discuss further. Hector Bauer MD 10/10/2018 Pt had a previous C section. She is considering a repeat C section by Dr Bauer versawilda a .Emmis on and C Section ordered. TKRN Obesity in 10/10/2018 06/19/2019 Overview: 10/10/2018Patient is obese. Will plan on GCT@ NOB. 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 No corrective surgery. Patient's 2nd cousin with Down Syndrome. TKRN Patient request for diagnostic testing 9 06/19/2019 Overview: 10/10/2018Patient desires nuchal ultrasound and CF carrier screening testing. TTKRN control counseling 10/10/2018 019 Overview: 01/02/19 - title 19 papers signed today - Hector Bauer MD 10/10/18 - patient considering tubal ligation vs mirena IUD, counseled on R/B/A including risks of regret with sterilization - Hector Bauer MD Unstable lie of fetus 10/25/2017 10/10/2018 Overview: 10/25/17 - vtx today, was breech last week, needs weekly US for presentation - KJ Obesity complicating , third trimester 09/27/2017 10/10/2018 UTI (urinary tract infection) in , ante 09/27/2017 10/10/2018 Overview: 09/27/17: UTI dx'ed in early and treated by [facility] provider - repeat CCMS done today. Lee Ann Rivera CNM documented as of this encounter (statuses as of 07/24/2022) [facility]01-[facility] History of Past illness Narrative* Problem Noted Date Diagnosed Date Resolved Date Short interval between pregn ancies affecting , antepartum 10/10/2018 06/19/2019 Overview: 10/10/2018Patient delivered her last child 11/2017.TKRN History of delivery, antepartum 10/10/2018 06/19/2019 Overview: 12/05/18 - plan for tubal ligation with section - Hector Bauer MD 11/04/18 - plans for repeat - Hector Bauer MD 10/10/18 - Risks/benefits/alternatives discussed with patient regarding trial of labor and potential for uterine rupture. Risks include but are not limited to maternal hemorrhage, risk of injury to adjacent organs including potential hysterectomy. risks discussed as well, including potential for permanent neurologic injury or . Overall uterine rupture risk is less than 1% after one section. Is a trial of labor contraindicated for this patient? No If no, calculate rate of success using pre-labor factors: http://www.bsc[facility].edu/mfmu/vagbirth.html Predicted chance of vaginal after : 52.9% Patient's plan for delivery mode: patient undecided. She will do MATT's & then plan to discuss further. Hector Bauer MD 10/10/2018 Pt had a previous C section. She is considering a repeat C section by Dr Richie howe a .Emmis on and C Section ordered. TKRN Obesity in 10/10/2018 019 Overview: 10/10/2018Patient is obese. Will plan on GCT@ NOB. 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 No corrective surgery. Patient's 2nd cousin with Down Syndrome. TKRN Patient request for diagnostic testing 10/10/2018 06/19/2019 Overview: 10/10/2018Patient desires nuchal ultrasound and CF carrier screening testing. TTKRN control counseling 10/10/201811/2018 Overview: 01/02/19 - title 19 papers signed today - Hector Bauer MD 10/10/18 - patient considering tubal ligation vs mirena IUD, counseled on R/B/A including risks of regret with sterilization - Hector Bauer MD Unstable lie of fetus 10/25/20172018 Overview: 10/25/17 - vtx today, was breech last week, needs weekly US for presentation - KJ Obesity complicating pregnan cy, third trimester 09/27/2017 10/10/2018 UTI (urinary tract infection ) in , antepartum 09/27/2017 10/10/2018 Overview: 09/27/17: UTI dx'ed in early and treated by [facility] provider - repeat CCMS done today. Lee Ann Rivera CNM documented as of this encounter (statuses as of 04/25/2023) [facility]01-[facility] History of Past illness Narrative* Problem Noted Date Diagnosed Date Resolved Date Short interval between pregn ancies affecting , antepartum 10/10/2018 06/19/2019 Overview: 10/10/2018Patient delivered her last child 11/2017.TKRN History of delivery, antepartum 10/10/2018 06/19/2019 Overview: 12/05/18 - plan for tubal ligation with section - Hector Bauer MD 11/04/18 - plans for repeat - Hector Bauer MD 10/10/18 - Risks/benefits/alternatives discussed with patient regarding trial of labor and potential for uterine rupture. Risks include but are not limited to maternal hemorrhage, risk of injury to adjacent organs including potential hysterectomy. risks discussed as well, including potential for permanent neurologic injury or . Overall uterine rupture risk is less than 1% after one section. Is a trial of labor contraindicated for this patient? No If no, calculate rate of success using pre-labor factors: http://www.bs.[facility]/mfmu/vagbirth.html Predicted chance of vaginal after : 52.9% Patient's plan for delivery mode: patient undecided. She will do MATT's & then plan to discuss further. Hector Bauer MD 10/10/2018 Pt had a previous C section. She is considering a repeat C section by Dr Bauer versawilda a .Emmis on and C Section ordered. TKRN Obesity in 10/10/2018 019 Overview: 10/10/2018Patient is obese. Will plan on GCT@ NOB. 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 No corrective surgery. Patient's 2nd cousin with Down Syndrome. TKRN Patient request for diagnostic testing 10/10/2018 06/19/2019 Overview: 10/10/2018Patient desires nuchal ultrasound and CF carrier screening testing. TTKRN control counseling 10/10/201811/2018 Overview: 01/02/19 - title 19 papers signed today - Hector Bauer MD 10/10/18 - patient considering tubal ligation vs mirena IUD, counseled on R/B/A including risks of regret with sterilization - Hector Bauer MD Chronic hypertension affecting 10/10/2018 2023 Overview: 10/10/18 - patient with elevated BP at 8 weeks which is c/w undiagnosed chtn, start 81mg aspirin at 12 weeks - Hector Bauer MD Unstable lie of fetus 10/25/20172018 Overview: 10/25/17 - vtx today, was breech last week, needs weekly US for presentation - KJ Obesity complicating pregnan cy, third trimester 09/27/2017 10/10/2018 UTI (urinary tract infection ) in , antepartum 09/27/2017 10/10/2018 Overview: 09/27/17: UTI dx'ed in early and treated by [facility] provider - repeat CCMS done today. Lee Ann Rivera CNM documented as of this encounter (statuses as of 08/08/2023) [facility]01-[facility] History of Past illness Narrative* Problem Noted Date Diagnosed Date Resolved Date Short interval between pregn ancies affecting , antepartum 10/10/2018 06/19/2019 Overview: 10/10/2018Patient delivered her last child 11/2017.TKRN History of delivery, antepartum 10/10/2018 06/19/2019 Overview: 12/05/18 - plan for tubal ligation with section - Hector Bauer MD 11/04/18 - plans for repeat - Hector Bauer MD 10/10/18 - Risks/benefits/alternatives discussed with patient regarding trial of labor and potential for uterine rupture. Risks include but are not limited to maternal hemorrhage, risk of injury to adjacent organs including potential hysterectomy. risks discussed as well, including potential for permanent neurologic injury or . Overall uterine rupture risk is less than 1% after one section. Is a trial of labor contraindicated for this patient? No If no, calculate rate of success using pre-labor factors: http://www.bsc[facility].edu/mfmu/vagbirth.html Predicted chance of vaginal after : 52.9% Patient's plan for delivery mode: patient undecided. She will do MATT's & then plan to discuss further. Hector Bauer MD 10/10/2018 Pt had a previous C section. She is considering a repeat C section by Dr Richie howe a .Emmis on and C Section ordered. TKRN Obesity in 10/10/2018 019 Overview: 10/10/2018Patient is obese. Will plan on GCT@ NOB. 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 No corrective surgery. Patient's 2nd cousin with Down Syndrome. TKRN Patient request for diagnostic testing 10/10/2018 06/19/2019 Overview: 10/10/2018Patient desires nuchal ultrasound and CF carrier screening testing. TTKRN control counseling 10/10/201811/2018 Overview: 01/02/19 - title 19 papers signed today - Hector Bauer MD 10/10/18 - patient considering tubal ligation vs mirena IUD, counseled on R/B/A including risks of regret with sterilization - Hector Bauer MD Chronic hypertension affecting 10/10/2018 2023 Overview: 10/10/18 - patient with elevated BP at 8 weeks which is c/w undiagnosed chtn, start 81mg aspirin at 12 weeks - Hector Bauer MD Unstable lie of fetus 10/25/20172018 Overview: 10/25/17 - vtx today, was breech last week, needs weekly US for presentation - KJ Obesity complicating pregnan cy, third trimester 09/27/2017 10/10/2018 UTI (urinary tract infection ) in , antepartum 09/27/2017 10/10/2018 Overview: 09/27/17: UTI dx'ed in early and treated by [facility] provider - repeat CCMS done today. Lee Ann Rivera CNM documented as of this encounter (statuses as of 08/13/2023) [facility]01[facility] History of Past illness Narrative* Problem Noted Date Diagnosed Date Resolved Date Short interval between pregn ancies affecting , antepartum 10/10/2018 06/19/2019 Overview: 10/10/2018Patient delivered her last child 11/2017.TKRN History of delivery, antepartum 10/10/2018 06/19/2019 Overview: 12/05/18 - plan for tubal ligation with section - Hector Bauer MD 11/04/18 - plans for repeat - Hector Bauer MD 10/10/18 - Risks/benefits/alternatives discussed with patient regarding trial of labor and potential for uterine rupture. Risks include but are not limited to maternal hemorrhage, risk of injury to adjacent organs including potential hysterectomy. risks discussed as well, including potential for permanent neurologic injury or . Overall uterine rupture risk is less than 1% after one section. Is a trial of labor contraindicated for this patient? No If no, calculate rate of success using pre-labor factors: http://www.bsc[facility]/mfmu/vagbirth.html Predicted chance of vaginal after : 52.9% Patient's plan for delivery mode: patient undecided. She will do MATT's & then plan to discuss further. Hector Bauer MD 10/10/2018 Pt had a previous C section. She is considering a repeat C section by Dr Bauer versawilda a .Emmis on and C Section ordered. TKRN Obesity in 10/10/2018 019 Overview: 10/10/2018Patient is obese. Will plan on GCT@ NOB. 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 No corrective surgery. Patient's 2nd cousin with Down Syndrome. TKRN Patient request for diagnostic testing 10/10/2018 06/19/2019 Overview: 10/10/2018Patient desires nuchal ultrasound and CF carrier screening testing. TTKRN control counseling 10/10/201811/2018 Overview: 01/02/19 - title 19 papers signed today - Hector Bauer MD 10/10/18 - patient considering tubal ligation vs mirena IUD, counseled on R/B/A including risks of regret with sterilization - Hector Bauer MD Chronic hypertension affecting 10/10/2018 2023 Overview: 10/10/18 - patient with elevated BP at 8 weeks which is c/w undiagnosed chtn, start 81mg aspirin at 12 weeks - Hector Bauer MD Unstable lie of fetus 10/25/20172018 Overview: 10/25/17 - vtx today, was breech last week, needs weekly US for presentation - KJ Obesity complicating pregnan cy, third trimester 09/27/2017 10/10/2018 UTI (urinary tract infection ) in , antepartum 09/27/2017 10/10/2018 Overview: 09/27/17: UTI dx'ed in early and treated by [facility] provider - repeat CCMS done today. Lee Ann Rivera CNM documented as of this encounter (statuses as of 11/16/2023) [facility]01-[facility] History of Past illness Narrative* Problem Noted Date Diagnosed Date Resolved Date Short interval between pregn ancies affecting , antepartum 10/10/2018 06/19/2019 Overview: 10/10/2018Patient delivered her last child 11/2017.TKRN History of delivery, antepartum 10/10/2018 06/19/2019 Overview: 12/05/18 - plan for tubal ligation with section - Hector Bauer MD 11/04/18 - plans for repeat - Hector Bauer MD 10/10/18 - Risks/benefits/alternatives discussed with patient regarding trial of labor and potential for uterine rupture. Risks include but are not limited to maternal hemorrhage, risk of injury to adjacent organs including potential hysterectomy. risks discussed as well, including potential for permanent neurologic injury or . Overall uterine rupture risk is less than 1% after one section. Is a trial of labor contraindicated for this patient? No If no, calculate rate of success using pre-labor factors: http://www.bsc[facility].edu/mfmu/vagbirth.html Predicted chance of vaginal after : 52.9% Patient's plan for delivery mode: patient undecided. She will do MATT's & then plan to discuss further. Hector Bauer MD 10/10/2018 Pt had a previous C section. She is considering a repeat C section by Dr Bauer versawilda a .Emmis on and C Section ordered. TKRN Obesity in 10/10/2018 019 Overview: 10/10/2018Patient is obese. Will plan on GCT@ NOB. 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 No corrective surgery. Patient's 2nd cousin with Down Syndrome. TKRN Patient request for diagnostic testing 10/10/2018 06/19/2019 Overview: 10/10/2018Patient desires nuchal ultrasound and CF carrier screening testing. TTKRN control counseling 10/10/201811/2018 Overview: 01/02/19 - title 19 papers signed today - Hector Bauer MD 10/10/18 - patient considering tubal ligation vs mirena IUD, counseled on R/B/A including risks of regret with sterilization - Hector Bauer MD Chronic hypertension affecting 10/10/2018 2023 Overview: 10/10/18 - patient with elevated BP at 8 weeks which is c/w undiagnosed chtn, start 81mg aspirin at 12 weeks - Hector Bauer MD Unstable lie of fetus 10/25/20172018 Overview: 10/25/17 - vtx today, was breech last week, needs weekly US for presentation - KJ Obesity complicating pregnan cy, third trimester 09/27/2017 10/10/2018 UTI (urinary tract infection ) in , antepartum 09/27/2017 10/10/2018 Overview: 09/27/17: UTI dx'ed in early and treated by [facility] provider - repeat CCMS done today. Lee Ann Rivera CNM documented as of this encounter (statuses as of 12/21/2023) [facility] History of Past illness Narrative* Problem Noted Date Diagnosed Date Resolved Date Short interval between pregn ancies affecting , antepartum 10/10/2018 06/19/2019 Overview: 10/10/2018Patient delivered her last child 11/2017.TKRN History of delivery, antepartum 10/10/2018 06/19/2019 Overview: 12/05/18 - plan for tubal ligation with section - Hector Bauer MD 11/04/18 - plans for repeat - Hector Bauer MD 10/10/18 - Risks/benefits/alternatives discussed with patient regarding trial of labor and potential for uterine rupture. Risks include but are not limited to maternal hemorrhage, risk of injury to adjacent organs including potential hysterectomy. risks discussed as well, including potential for permanent neurologic injury or . Overall uterine rupture risk is less than 1% after one section. Is a trial of labor contraindicated for this patient? No If no, calculate rate of success using pre-labor factors: http://www.bsc[facility].edu/mfmu/vagbirth.html Predicted chance of vaginal after : 52.9% Patient's plan for delivery mode: patient undecided. She will do MATT's & then plan to discuss further. Hector Bauer MD 10/10/2018 Pt had a previous C section. She is considering a repeat C section by Dr Bauer versawilda a .Emmis on and C Section ordered. TKRN Obesity in 10/10/2018 019 Overview: 10/10/2018Patient is obese. Will plan on GCT@ NOB. 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 No corrective surgery. Patient's 2nd cousin with Down Syndrome. TKRN Patient request for diagnostic testing 10/10/2018 06/19/2019 Overview: 10/10/2018Patient desires nuchal ultrasound and CF carrier screening testing. TTKRN control counseling 10/10/201811/2018 Overview: 01/02/19 - title 19 papers signed today - Hector Bauer MD 10/10/18 - patient considering tubal ligation vs mirena IUD, counseled on R/B/A including risks of regret with sterilization - Hector Bauer MD Chronic hypertension affecting 10/10/2018 2023 Overview: 10/10/18 - patient with elevated BP at 8 weeks which is c/w undiagnosed chtn, start 81mg aspirin at 12 weeks - Hector Bauer MD Unstable lie of fetus 10/25/20172018 Overview: 10/25/17 - vtx today, was breech last week, needs weekly US for presentation - KJ Obesity complicating pregnan cy, third trimester 09/27/2017 10/10/2018 UTI (urinary tract infection ) in , antepartum 09/27/2017 10/10/2018 Overview: 09/27/17: UTI dx'ed in early and treated by [facility] - repeat CCMS done today. Lee Ann Rivera CNM documented as of this encounter (statuses as of 01/01/2024) [facility] History of Past illness Narrative* Problem Noted Date Diagnosed Date Resolved Date Short interval between pregn ancies affecting , antepartum 10/10/2018 06/19/2019 Overview: 10/10/2018Patient delivered her last child 11/2017.TKRN History of delivery, antepartum 10/10/2018 06/19/2019 Overview: 12/05/18 - plan for tubal ligation with section - Hector Bauer MD 11/04/18 - plans for repeat - Hector Bauer MD 10/10/18 - Risks/benefits/alternatives discussed with patient regarding trial of labor and potential for uterine rupture. Risks include but are not limited to maternal hemorrhage, risk of injury to adjacent organs including potential hysterectomy. risks discussed as well, including potential for permanent neurologic injury or . Overall uterine rupture risk is less than 1% after one section. Is a trial of labor contraindicated for this patient? No If no, calculate rate of success using pre-labor factors: http://www.bs.[facility].edu/mfmu/vagbirth.html Predicted chance of vaginal after : 52.9% Patient's plan for delivery mode: patient undecided. She will do MATT's & then plan to discuss further. Hector Bauer MD 10/10/2018 Pt had a previous C section. She is considering a repeat C section by Dr Bauer verses a .Emmis on and C Section ordered. TKRN Obesity in 10/10/2018 019 Overview: 10/10/2018Patient is obese. Will plan on GCT@ NOB. 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 No corrective surgery. Patient's 2nd cousin with Down Syndrome. TKRN Patient request for diagnostic testing 10/10/2018 06/19/2019 Overview: 10/10/2018Patient desires nuchal ultrasound and CF carrier screening testing. TTKRN control counseling 10/10/201811/2018 Overview: 01/02/19 - title 19 papers signed today - Hector Bauer MD 10/10/18 - patient considering tubal ligation vs mirena IUD, counseled on R/B/A including risks of regret with sterilization - Hector Bauer MD Chronic hypertension affecting 10/10/2018 2023 Overview: 10/10/18 - patient with elevated BP at 8 weeks which is c/w undiagnosed chtn, start 81mg aspirin at 12 weeks - Hector Bauer MD Unstable lie of fetus 10/25/20172018 Overview: 10/25/17 - vtx today, was breech last week, needs weekly US for presentation - KJ Obesity complicating pregnan cy, third trimester 09/27/2017 10/10/2018 UTI (urinary tract infection ) in , antepartum 09/27/2017 10/10/2018 Overview: 09/27/17: UTI dx'ed in early and treated by [facility] provider - repeat CCMS done today. Lee Ann Rivera CNM documented as of this encounter (statuses as of 01/04/2024) [facility] [place] [facility] Diagnosis Encounter for gynecological examination without abnormal finding- Primary Routine gynecological examination Encounter for screening for malignant neoplasm of cervix Screening for malignant neoplasm of the cervix Family history of breast cancer in mother Family history of malignant neoplasm of breast Screen for STD (sexually transmitted disease) Screening examination for venereal disease Need for prophylactic vaccination/inoculation against viral disease Need for prophylactic vaccination and inoculation against other viral diseases documented [facility] this [facility] [place] [facility]* Diagnosis Need for prophylactic vaccination/inoculation against viral disease- Primary Need for prophylactic vaccination and inoculation against other viral diseases documented in this encounter [facility] note* Diagnosis Lightheadedness- Primary Dizziness and giddiness Palpitations Numbness and tingling Disturbance of skin sensation Flushing Positional lightheadedness Dizziness and giddiness Screening for diabetes mellitus Screening for lipid disorders Need for hepatitis C screening test Special screening examination for other specified viral diseases Encounter for immunization Need for other specified prophylactic vaccination against single bacterial disease documented [facility] this [facility] [place] [facility]* Diagnosis Vitamin D deficiency- Primary Unspecified vitamin D deficiency documented in this [facility] [place] [facility]* Diagnosis Onset Date Resolution Status Palpitations acute [place] Work Phone: Evaluation note* Diagnosis Gastroesophageal reflux disease with esophagitis without hemorrhage- Primary Chronic bilateral low back pain without sciatica documented [facility] this [facility] [place] [facility]* Diagnosis Gastroesophageal reflux disease with esophagitis without hemorrhage documented [facility] [place] [facility]* Diagnosis Morbid obesity with BMI of 50.0-59.9, adult (HCC)- Primary Morbid obesity Chronic midline low back pain without sciatica documented in this encounter [facility] note* Diagnosis Chronic bilateral low back pain with bilateral sciatica- Primary Anxiety with depression Morbid obesity with BMI of 50.0-59.9, adult (HCC) Morbid obesity Migraine without aura, intractable, without status migrainosus documented in this [facility] [place] [facility]* Diagnosis Chronic midline low back pain without sciatica Chronic bilateral low back pain with bilateral sciatica documented in this encounter [facility] note* Diagnosis Chronic bilateral low back pain with bilateral sciatica- Primary documented in this encounter [facility] note* Diagnosis Chronic bilateral low back pain with bilateral sciatica- Primary documented in this encounter [facility] note* Diagnosis Chronic bilateral low back pain with bilateral sciatica- Primary documented [facility] this encounter [facility] Diagnosis PCB (post coital bleeding)- Primary Postcoital bleeding documented in this encounter [facility] [place] [facility]* Diagnosis PCB (post coital bleeding)- Primary Postcoital bleeding Adenomyosis of the uterus Abnormal ultrasound of endometrium Nonspecific (abnormal) findings on radiological and other examination of genitourinary organs documented in this encounter [facility] note* Diagnosis URI, acute Acute upper respiratory infections of unspecified site Acute cough documented in this encounter [facility] note* Diagnosis Chronic bilateral low back pain without sciatica documented in this encounter [facility] note* Diagnosis Oral herpes- Primary Herpetic gingivostomatitis documented in this encounter [facility] for referral (narrative)* Diagnostic Procedure Only (Routine) - Closed Specialty Diagnoses / Procedures Referred By Aria howard Referred To Contact XR IMAGING Diagnoses Chronic bilateral low back pain without sciatica Procedures XR SACRUM/COCCYX 3V AP/LAT RADEX SACRUM & COCCYX MINIMUM 2 VIEWS Elieser Lux APRN.PEOPLESOFT FUNCTIONAL ANALYST [address] [place] [address] [place] [address] Referral ID Status Reason Start Date Expiration Date V isits Requested Visits Authorized [id number] Closed Auto-Generate d Referral 08/08/2023 09/06/2024 1 1 * Diagnostic Procedure Only (Routine) - Closed Specialty Diagnoses / Procedures Referred By Contac t Referred To Contact XR IMAGING Diagnoses Chronic bilateral low back pain without sciatica Procedures XR LUMBAR GENERAL 3V AP/LAT/L5-S1 RADEX SPINE LUMBOSACRAL 2/3 VIEWS Elieser Lux APRN.PEOPLESOFT FUNCTIONAL ANALYST [address] [place] [address] [place] [address] Referral ID Status Reason Start Date Expiration Date V isits Requested Visits Authorized [id number] Closed Auto-Generate d Referral 08/08/2023 09/06/2024 1 1 [facility] for referral (narrative)* Diagnostic Procedure Only (Routine) - Authorized Specialty Diagnoses / Procedures Referred By Contac t Referred To Contact [facility] Diagnoses PCB (post coital bleeding) Procedures PELVIC US I US PELVIC NONOBSTETRIC REAL-TIME IMAGE COMPLETE Hector Bauer MD [address] [place] [address] [facility] [address] [facility] [place] [address] Referral ID Status Reason Start Date Expiration Date Visits Requested Visits Authorized [id number] Authorized Auto-Generat ed Referral 03/25/2024 03/25/2025 1 1 [facility] for referral (narrative)* Diagnostic Procedure Only (Routine) - Closed Specialty Diagnoses / Procedures Referred By Contac t Referred To Contact XR IMAGING Diagnoses Chronic bilateral low back pain without sciatica Procedures XR SACRUM/COCCYX 3V AP/LAT RADEX SACRUM & COCCYX MINIMUM 2 VIEWS Elieser Lux APRN.PEOPLESOFT FUNCTIONAL ANALYST [address] [place] [address] [place] [address] Referral ID Status Reason Start Date Expiration Date V isits Requested Visits Authorized [id number] Closed Auto-Generate d Referral 08/08/2023 09/06/2024 1 1 * Diagnostic Procedure Only (Routine) - Closed Specialty Diagnoses / Procedures Referred By Contac t Referred To Contact XR IMAGING Diagnoses Chronic bilateral low back pain without sciatica Procedures XR LUMBAR GENERAL 3V AP/LAT/L5-S1 RADEX SPINE LUMBOSACRAL 2/3 VIEWS Elieser Lux APRN.PEOPLESOFT FUNCTIONAL ANALYST [address] [place] [address] [place] [address] Referral ID Status Reason Start Date Expiration Date V isits Requested Visits Authorized [id number] Closed Auto-Generate d Referral 08/08/2023 09/06/2024 1 1 [facility] for visit Narrative* Diagnostic Procedure Only (Routine) - Closed Specialty Diagnoses / Procedures Referred By Contac t Referred To Contact [facility] Diagnoses PCB (post coital bleeding) Procedures PELVIC US I US PELVIC NONOBSTETRIC REAL-TIME IMAGE COMPLETE Hector Bauer MD [address] [place] [address] [facility] [address] [place] [address] Referral ID Status Reason Start Date Expiration Date V isits Requested Visits Authorized [id number] Closed Auto-Generate d Referral 03/25/2024 03/25/2025 1 1 [facility] for visit Narrative* Diagnostic Procedure Only (Routine) - Closed Specialty Diagnoses / Procedures Referred By Contac t Referred To Contact XR IMAGING Diagnoses Chronic bilateral low back pain without sciatica Procedures XR SACRUM/COCCYX 3V AP/LAT RADEX SACRUM & COCCYX MINIMUM 2 VIEWS Elieser Lux APRN.PEOPLESOFT FUNCTIONAL ANALYST [address] [place] [address] [place] [address] Referral ID Status Reason Start Date Expiration Date V isits Requested Visits Authorized [id number] Closed Auto-Generate d Referral 08/08/2023 09/06/2024 1 1 [facility] Summary Purpose Family History No Family History Records Found Relationship Condition Age at Onset Recorded Date/T [place] mother Malignant neoplasm Unknown Hypertension Unknown Diabetes mellitus Unknown father Cardiac disease Unknown Malignant neoplasm Unknown grandmother Malignant neoplasm Unknown grandfather Cardiac disease Unknown Advance Directives No Advanced Directives Records FoundDocuments on File Type Date Recorded 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 [address] [address] Referral ID Status Reason Start Date Expiration Date Visits Requested Visits Authorized [id number] Authorized PCP Requested Referral Auto-Generate d Referral 02/28/2022 02/28/2023 1 1 Specialty Diagnoses / Procedures Referred By Contac t Referred To Contact Cardiology Diagnoses Palpitations Lightheadedness Positional lightheadedness Procedures CONSULT TO CARDIOLOGY OFFICE/OUTPATIENT [facility] 60-74 MINUTES Alma Delia Chaidez PA-C [address] [place] [address] Referral ID Status Reason Start Date Expiration Date Visits Requested Visits Authorized [id number] Pending Review PCP Requested Referral 07/20/2022 07/20/2023 1 1 Specialty Diagnoses / Procedures Referred By Contac t Referred To Contact Diagnoses Morbid obesity with BMI of 50.0-59.9, adult (HCC) Procedures CONSULT TO WELLNESS PHYSICIAN OFFICE/OUTPATIENT [facility] MDM 60 MINUTES Elieser Lux APRN.PEOPLESOFT FUNCTIONAL ANALYST [address] [place] [address] Referral ID Status Reason Start Date Expiration Date Visits Requested Visits Authorized [id number] Authorized PCP Requested Referral 12/20/2023 12/19/2024 1 1 Specialty Diagnoses / Procedures Referred By Contac t Referred To Contact [facility] Diagnoses Chronic midline low back pain without sciatica Procedures CONSULT TO PHYSICAL THERAPY PHYSICAL THERAPY EVALUATION HIGH COMPLEX 45 MINS Elieser Lux APRN.PEOPLESOFT FUNCTIONAL ANALYST [address] [place] [address] [facility] [address] [address] Referral ID Status Reason Start Date Expiration Date Visits Requested Visits Authorized [id number] Authorized Auto-Generat ed Referral 09/17/2023 09/16/2024 1 1 Specialty Diagnoses / Procedures Referred By Contac t Referred To Contact Diagnoses Chronic bilateral low back pain with bilateral sciatica Procedures CONSULT TO CHIROPRACTOR OFFICE/OUTPATIENT [facility] 30 MINUTES CHIROPRAC MANIP,SPINAL,5 REGIONS Joseline Mosley PA-C [address] [place] [address] Referral ID Status Reason Start Date Expiration Date Visits Requested Visits Authorized [id number] Pending Review PCP Requested Referral 12/31/2023 12/30/2024 1 1 Specialty Diagnoses / Procedures Referred By Contac t Referred To Contact Diagnoses Morbid obesity with BMI of 50.0-59.9, adult (HCC) Anxiety with depression Migraine without aura, intractable, without status migrainosus Chronic bilateral low back pain without sciatica Procedures EATING WELL FOR [facility] OFFICE/OUTPATIENT [facility] 60 MINUTES Joseline Mosley PA-C [address] [place] [address] Referral ID Status Reason Start Date Expiration Date Visits Requested Visits Authorized [id number] Pending Review PCP Requested Referral 12/31/2023 12/30/2024 1 1 Specialty Diagnoses / Procedures Referred By Contac t Referred To Contact [facility] Diagnoses Chronic midline low back pain without sciatica Chronic bilateral low back pain with bilateral sciatica Procedures PT REHAB FOLLOW UP ORDER THERAPEUTIC EXERCISES RE, EA 15 MIN. Elieser Lux APRN.PEOPLESOFT FUNCTIONAL ANALYST [address] [place] [address] [facility] [place] [address] [place] [address] Referral ID Status Reason Start Date Expiration Date Visits Requested Visits Authorized [id number] Pending Review PCP Requested Referral Auto-Generate d Referral 01/03/2024 04/02/2024 1 1 Specialty Diagnoses / Procedures Referred By Aria t Referred To Contact [facility] Diagnoses Chronic bilateral low back pain with bilateral sciatica Procedures PT REHAB FOLLOW UP ORDER PT REHAB FOLLOW UP ORDER THERAPEUTIC EXERCISES RE, EA 15 MIN. Pt [facility] [address] [place] [address] [facility] [address] [place] [address] Referral ID Status Reason Start Date Expiration Date Visits Requested Visits Authorized [id number] Pending Review PCP Requested Referral Auto-Generate d Referral 02/19/2024 05/19/2024 1 1 Chief Complaint and Reason for Visit Chief Complaint Palpitations PALPITATIONS FLANK PAIN POSSIBLE POTS POSSIBLE POTS Reason for Visit Palpitations Additional Source Comments INFORMATION SOURCE (unrecogn ized section and content) DATE CREATED AUTHOR 07/13/2020 [facility] [place] [facility] DATE CREATED AUTHOR AUTHOR'S ORGANIZ ATION 02/23/2022 [facility] DATE CREATED AUTHOR AUTHOR'S ORGANIZ ATION 12/13/2022 [facility] DATE CREATED AUTHOR AUTHOR'S ORGANIZ ATION 01/01/2024 [facility] DATE CREATED AUTHOR AUTHOR'S ORGANIZ ATION 05/01/2025 [facility] Source Comments (unrecognize d section and content) In the event this informatio n is protected by the Federal Confidentiality of Alcohol and Drug Abuse Patient Records regulations: The Federal rules restrict any use of the information to criminally investigate or prosecute any alcohol or drug abuse patient.[facility] the event this information is protected by the Federal Confidentiality of Alcohol and Drug Abuse Patient Records regulations: The Federal rules restrict any use of the information to criminally investigate or prosecute any alcohol or drug abuse patient.[facility] the event this information is protected by the Federal Confidentiality of Alcohol and Drug Abuse Patient Records regulations: The Federal rules restrict any use of the information to criminally investigate or prosecute any alcohol or drug abuse patient.[facility] the event this information is protected by the Federal Confidentiality of Alcohol and Drug Abuse Patient Records regulations: The Federal rules restrict any use of the information to criminally investigate or prosecute any alcohol or drug abuse patient.[facility] the event this information is protected by the Federal Confidentiality of Alcohol and Drug Abuse Patient Records regulations: The Federal rules restrict any use of the information to criminally investigate or prosecute any alcohol or drug abuse patient.[facility] the event this information is protected by the Federal Confidentiality of Alcohol and Drug Abuse Patient Records regulations: The Federal rules restrict any use of the information to criminally investigate or prosecute any alcohol or drug abuse patient.[facility] the event this information is protected by the Federal Confidentiality of Alcohol and Drug Abuse Patient Records regulations: The Federal rules restrict any use of the information to criminally investigate or prosecute any alcohol or drug abuse patient.[facility] the event this information is protected by the Federal Confidentiality of Alcohol and Drug Abuse Patient Records regulations: The Federal rules restrict any use of the information to criminally investigate or prosecute any alcohol or drug abuse patient.[facility] the event this information is protected by the Federal Confidentiality of Alcohol and Drug Abuse Patient Records regulations: The Federal rules restrict any use of the information to criminally investigate or prosecute any alcohol or drug abuse patient.[facility] the event this information is protected by the Federal Confidentiality of Alcohol and Drug Abuse Patient Records regulations: The Federal rules restrict any use of the information to criminally investigate or prosecute any alcohol or drug abuse patient.[facility] the event this information is protected by the Federal Confidentiality of Alcohol and Drug Abuse Patient Records regulations: The Federal rules restrict any use of the information to criminally investigate or prosecute any alcohol or drug abuse patient.[facility] the event this information is protected by the Federal Confidentiality of Alcohol and Drug Abuse Patient Records regulations: The Federal rules restrict any use of the information to criminally investigate or prosecute any alcohol or drug abuse patient.[facility] the event this information is protected by the Federal Confidentiality of Alcohol and Drug Abuse Patient Records regulations: The Federal rules restrict any use of the information to criminally investigate or prosecute any alcohol or drug abuse patient.[facility] the event this information is protected by the Federal Confidentiality of Alcohol and Drug Abuse Patient Records regulations: The Federal rules restrict any use of the information to criminally investigate or prosecute any alcohol or drug abuse patient.[facility] the event this information is protected by the Federal Confidentiality of Alcohol and Drug Abuse Patient Records regulations: The Federal rules restrict any use of the information to criminally investigate or prosecute any alcohol or drug abuse patient.[facility] the event this information is protected by the Federal Confidentiality of Alcohol and Drug Abuse Patient Records regulations: The Federal rules restrict any use of the information to criminally investigate or prosecute any alcohol or drug abuse patient.[facility] the event this information is protected by the Federal Confidentiality of Alcohol and Drug Abuse Patient Records regulations: The Federal rules restrict any use of the information to criminally investigate or prosecute any alcohol or drug abuse patient.[facility] the event this information is protected by the Federal Confidentiality of Alcohol and Drug Abuse Patient Records regulations: The Federal rules restrict any use of the information to criminally investigate or prosecute any alcohol or drug abuse patient.[facility] Hospital[facility] the event this information is protected by the Federal Confidentiality of Alcohol and Drug Abuse Patient Records regulations: The Federal rules restrict any use of the information to criminally investigate or prosecute any alcohol or drug abuse patient.[facility] Hospital[facility] the event this information is protected by the Federal Confidentiality of Alcohol and Drug Abuse Patient Records regulations: The Federal rules restrict any use of the information to criminally investigate or prosecute any alcohol or drug abuse patient.[facility] Hospital[facility] the event this information is protected by the Federal Confidentiality of Alcohol and Drug Abuse Patient Records regulations: The Federal rules restrict any use of the information to criminally investigate or prosecute any alcohol or drug abuse patient.[facility] HospitalIn the event this information is protected by the Federal Confidentiality of Alcohol and Drug Abuse Patient Records regulations: The Federal rules restrict any use of the information to criminally investigate or prosecute any alcohol or drug abuse patient.[facility] Hospital[facility] the event this information is protected by the Federal Confidentiality of Alcohol and Drug Abuse Patient Records regulations: The Federal rules restrict any use of the information to criminally investigate or prosecute any alcohol or drug abuse patient.[facility] Reason for Visit (unrecogniz ed section and content) Reason Comments PT Discharge Physical Therapy Specialty Diagnoses / Procedures Referred By Contac t Referred To Contact [facility] Diagnoses Chronic midline low back pain without sciatica Chronic bilateral low back pain with bilateral sciatica Procedures PT REHAB FOLLOW UP ORDER THERAPEUTIC EXERCISES RE, EA 15 MIN. Elieser Lux APRN.PEOPLESOFT FUNCTIONAL ANALYST [address] [place] [address] [facility] [address] [place] [address] Referral ID Status Reason Start Date Expiration Date Visits Requested Visits Authorized [id number] Authorized PCP Requested Referral Auto-Generate d Referral 01/08/2024 04/16/2024 20 20 Reason Onset Date Comments Yearly Exam 02/28/2022 Gardasil Injection 02/28/2022 Reason Onset Date Comments Gardasil Injection 05/16/2022 Specialty Diagnoses / Procedures Referred By Contac t Referred To Contact YARD CRANE OPERATOR Diagnoses HPV # 2 Procedures HPV INJECTION Self, [facility], Nurse Baker Test [facility] [address] [place] [address] Referral ID Status Reason Start Date Expiration Date Visits Re quested Visits Authorized [id number] Closed 05/16/2022 08/14/2022 1 1 Reason Comments Follow Up Wants to discuss pos sible POTS Reason Comments Results Reason Comments Follow Up Reason Comments Refill Request Reason Comments Back Pain Edema X 1 month Reason Comments Weight Control Back Pain Specialty Diagnoses / Procedures Referred By Contac t Referred To Contact Diagnoses Morbid obesity with BMI of 50.0-59.9, adult (HCC) Procedures CONSULT TO WELLNESS PHYSICIAN OFFICE/OUTPATIENT [facility] MDM 60 MINUTES Elieser Lux APRN.PEOPLESOFT FUNCTIONAL ANALYST [address] [place] [address] Referral ID Status Reason Start Date Expiration Date V isits Requested Visits Authorized [id number] Closed PCP Requested Referral 12/20/2023 12/19/2024 1 1 Reason Comments PT Eval Specialty Diagnoses / Procedures Referred By Contac t Referred To Contact [facility] Diagnoses Chronic midline low back pain without sciatica Procedures CONSULT TO PHYSICAL THERAPY PHYSICAL THERAPY EVALUATION HIGH COMPLEX 45 MINS Elieser Lux APRN.PEOPLESOFT FUNCTIONAL ANALYST [address] [place] [address] [facility] [address] [place] [address] Referral ID Status Reason Start Date Expiration Date V isits Requested Visits Authorized [id number] Closed Auto-Generate d Referral 09/17/2023 09/16/2024 1 1 Reason Comments PT Progress Note Physical Therapy Specialty Diagnoses / Procedures Referred By Contac t Referred To Contact [facility] Diagnoses Chronic midline low back pain without sciatica Chronic bilateral low back pain with bilateral sciatica Procedures PT REHAB FOLLOW UP ORDER THERAPEUTIC EXERCISES RE, EA 15 MIN. Elieser Lux APRN.PEOPLESOFT FUNCTIONAL ANALYST [address] [place] [address] [facility] [address] [place] [address] Reason Comments Physical Therapy Reason Comments Well Woman Reason Comments Mouth/Lip Problem Lip sores x 1 week Care Teams (unrecognized sec tion and content) Chief Dietitian Relationship Specialty Start Date End Date Bob Peter MD [address] [place], [place] [address] PCP - General Family Practice 10/15/19 Chief Dietitian Relationship Specialty Start Date End Date Bob Peter MD [address] [place], [place] [id number] PCP - General Family Practice 10/15/19 Chief Dietitian Relationship Specialty Start Date End Date Bob Peter MD [address] [place], [place] [id number] PCP - General Family Medicine 10/15/19 Chief Dietitian Relationship Specialty Start Date End Date Bob Peter MD [address] [place], [place] [id number] PCP - General Family Medicine 10/15/19 Team Status: Active Member Role Status Dates No Primary Care Physician Family Provider Active DAO Carrizales Primary Care Provider Active Team Status: Inactive Member Role Status Dates No Primary Care Physician Primary Care Provider, Refer ring Provider Active Dr. Marco Rasmussen MD Attending Provider Active Team Status: Active Member Role Status Dates DAO Carrizales Primary Care Provider Active Dr. Marco Rasmussen MD Attending Provider Active Team Status: Active Member Role Status Dates DAO Carrizales Primary Care Provider Active Dr. Marco Rasmussen MD Attending Provider, Other Provide r Active Team Status: Inactive Member Role Status Dates DAO Carrizales Primary Care Provider Active Dr. Marco Rasmussen MD Attending Provider Active Team Status: Inactive Member Role Status Dates Alma Delia DC PA Primary Care Provider Active Dr. Panfilo Schwiger , DO Attending Provider, Emergency P chalo Active Chief Dietitian Relationship Specialty Start Date End Date Bob Peter MD [address] [place] [address] PCP - General Family Medicine 10/15/19 Chief Dietitian Relationship Specialty Start Date End Date Bob Peter MD [address] [place] [address] PCP - General Family Medicine 10/15/19 Chief Dietitian Relationship Specialty Start Date End Date Bob Peter MD [address] [place] [address] PCP - General Family Medicine 10/15/19 Chief Dietitian Relationship Specialty Start Date End Date Bob Peter MD [address] [place] [address] PCP - General Family Medicine 10/15/19 Chief Dietitian Relationship Specialty Start Date End Date Bob Peter MD [address] [place] [address] PCP - General Family Medicine 10/15/19 Chief Dietitian Relationship Specialty Start Date End Date Bob Peter MD [address] [place] [address] PCP - General Family Medicine 10/15/19 Chief Dietitian Relationship Specialty Start Date End Date Bob Peter MD [address] [place] [address] PCP - General Family Medicine 10/15/19 Chief Dietitian Relationship Specialty Start Date End Date Bob Peter MD [address] [place] [address] PCP - General Family Medicine 10/15/19 Chief Dietitian Relationship Specialty Start Date End Date Bob Peter MD [address] [place], [place] [address] [phone] PCP - General Family Medicine 10/15/19 Chief Dietitian Relationship Specialty Start Date End Date Bob Peter MD [address] [place] [address] PCP - General Family Medicine 10/15/19 Chief Dietitian Relationship Specialty Start Date End Date Bob Peter MD [address] [place] [phone] PCP - General Family Medicine 10/15/19 Chief Dietitian Relationship Specialty Start Date End Date Bob Peter MD [address] [place] [phone] PCP - General Family Medicine 10/15/19 Chief Dietitian Relationship Specialty Start Date End Date Bob Peter MD [address] [place] [phone] PCP - General Family Medicine 10/15/19 Elieser Lux APRN.CNP [address] [place] [address] [phone] [employer] Dumping Supervisor Family Medicine 02/16/25 Alma Delia Chaidez PA-C [address] [place] [address] [employer] D[employer] Supervisor Family Medicine 02/16/25 Chief Dietitian Relationship Specialty Start Date End Date Bob Peter MD [address] [place], [place] [id number] [phone] PCP - General Family Medicine 10/15/19 Elieser Lux APRN.NOA [address] [place] [address] [facility] 02/16/25 Alma Delia Chaidez PA-C [address] [place] [address] [facility] 02/16/25 Goals (unrecognized section and content) Goals may be documented in a n alternate section FOR RECORDS PERTAINING TO PATIENTS WHO ARE OR HAVE BEEN ENROLLED IN A CHEMICAL DEPENDENCY/SUBSTANCEABUSE PROGRAM, SOME INFORMATION MAY BE OMITTED. This clinical summary was aggregated from multiple sources. Caution should be exercised in using it in the provision of clinical care. This summary normalizes information from multiple sources, and as a consequence, information in this document may materially change the coding, format and clinical context of patient data. In addition, data may be omitted in some cases. CLINICAL DECISIONS SHOULD BE BASED ON THE PRIMARY CLINICAL RECORDS. [facility] [facility]. provides no warranty or guarantee of the accuracy or completeness of information in this document.
[2025-05-15 22:24] VITALS: BP 146/90; PULSE 80; RESP 16; TEMP 36.4; O2SAT 98
[2025-05-15 22:31] LABS: AST(SGOT) 38 U/L (<=31); Alanine Aminotransfer ALT/SGPT 23 U/L (<=34); Albumin, Serum 4.1 g/dL (3.5-5.0); Alkaline Phosphatase 100 U/L (35-104); Anion Gap 17 (5-15); BUN 12 mg/dL (4-19); BUN/Creat Ratio 14.2 RATIO (10-20); Calcium,Total 9.6 mg/dL (7.6-11.0); Carbon Dioxide 18.8 mmol/L (21.0-32.0); Chloride 100 mmol/L (98-108); Globulin 3.4 g/dL (2.2-4.2); Glucose 97 mg/dL (70-99); Potassium 4.3 mmol/L (3.3-5.1)
== END 2025-05-15 22:25 | disposition home or self-care (01) ==
LOC: ED 21:53
PROVIDERS: Emergency Provider Emergency Medicine; PCP Physician Assistant; Visit Provider Emergency Medicine
DX: N13.2 Hydronephrosis with renal and ureteral calculous obstruction (principal); R10.9 Unspecified abdominal pain; Z90.49 Acquired absence of other specified parts of digestive tract; F41.8 Other specified anxiety disorders; Z79.899 Other long term (current) drug therapy; Z98.51 Tubal ligation status
CPT/HCPCS: 74176; 80053; 81001; 84703; 85025; 87086; 87088; 96361; 96374; 96375; 99282; A4216; J2405